=== PATIENT | female | born 1960 | race African-American/Black ===

== ENCOUNTER 2018-12-09 10:22 | Emergency (ER) | payer MEDICARE, MEDICAID ==
--- NOTE | 2018-12-09 12:18 | EDM.PDOC ---
ED HPI GENERAL MEDICAL PROBLEM - General Stated Complaint: ALLERGIC REACTION Time Seen by Provider: 12/09/18 11:15 Source of Information: Reports: Patient History Limitations: Reports: No Limitations - History of Present Illness INITIAL COMMENTS - FREE TEXT/NARRATIVE: c/o rash present this AM, on lower abd, itching, now fading chronic problem, pt with photos of 12/02 when she had flat papules across lower abd x 4-5 without red and c/w localized hives, tx with dexammethasone at least once now not on antihistamine rash had faded when I examined abd, will start baseline antihistamine - Related Data Allergies Allergy/AdvReac Type Severity Reaction Status Date / Time Iodinated Contrast- Oral and Allergy Hives Verified 12/09/18 12:09 IV Dye Penicillins Allergy Hives Verified 12/09/18 12:09 Home Meds: Home Meds Acetaminophen/Caffeine [Excedrin Tension Headache] 1 tab PO ASDIRECTED PRN 12/09 [History] Dextromethorphan HBr/Chlor-Mal [Cough & Cold] 1 ea PO ASDIRECTED PRN 12/09/18 [ History] Divalproex Sodium [Divalproex Sodium ER] 750 mg PO BID 12/09/18 [History] Doxepin [SINEquan] 10 - 30 mg PO Q6H PRN 12/09/18 [History] Lisinopril/Hydrochlorothiazide [Lisinopril-Hctz 20-25 mg Tab] 1 ea PO DAILY [History] Loratadine 10 mg PO DAILY #30 tablet 12/09/18 [Rx] Sertraline [Zoloft] 50 mg PO BEDTIME 12/09/18 [History] atorvaSTATin [Lipitor] 40 mg PO BEDTIME 12/09/18 [History] risperiDONE [Risperdal] 1 mg PO BID 12/09/18 [History] ED ROS GENERAL - Review of Systems Review Of Systems: See Below Constitutional: Reports: No Symptoms HEENT: Reports: No Symptoms Respiratory: Reports: No Symptoms Cardiovascular: Reports: No Symptoms Endocrine: Reports: No Symptoms GI/Abdominal: Reports: No Symptoms : Reports: No Symptoms Musculoskeletal: Reports: No Symptoms Skin: Reports: Pruritis, Rash Neurological: Reports: No Symptoms Psychiatric: Reports: No Symptoms Hematologic/Lymphatic: Reports: No Symptoms Immunologic: Reports: No Symptoms ED EXAM, SKIN/RASH Exam: See Below Exam Limited By: No Limitations General Appearance: Alert, WD/WN, No Apparent Distress Throat/Mouth: Normal Inspection, Normal Lips, Normal Teeth, Normal Gums, Normal Oropharynx, Normal Voice, No Airway Compromise Head: Atraumatic, Normocephalic Neck: Normal Inspection, Supple, Non-Tender, Full Range of Motion Respiratory/Chest: No Respiratory Distress, Lungs Clear Cardiovascular: Regular Rate, Rhythm Skin: Other (lower abd with dry skin, faint red color of skin in area of 4 x 4 cm above R inguinal ligament c/w dry skin vs mild allergic dermatitis, no hives , no warmth) Course - Vital Signs Last Recorded V/S: Last Vital Signs Temp 36.7 C 12/09/18 11:07 Pulse 71 12/09/18 10:47 Resp 16 12/09/18 11:07 BP 133/76 12/09/18 11:07 Pulse Ox 98 12/09/18 11:07 Departure - Departure Time of Disposition: 12:15 Disposition: Home, Self-Care 01 Condition: Good Clinical Impression: Allergic dermatitis - Discharge Information *PRESCRIPTION DRUG MONITORING PROGRAM REVIEWED*: Not Applicable *COPY OF PRESCRIPTION DRUG MONITORING REPORT IN PATIENT YANN: Not Applicable Prescriptions: Loratadine 10 mg PO DAILY #30 tablet Instructions: Rash, [id number] Referrals: PCP,None [Primary Care Provider] - Additional Instructions: For skin rash, take loratadine 10 mg 1 tab daily. Continue current prescribed medications. See your doctor in 4 days.
== END 2018-12-09 12:25 | disposition home or self-care (01) ==
LOC: FB.ED 10:22
DX: L23.9 Allergic contact dermatitis, unspecified cause (principal); Z88.0 Allergy status to penicillin; Z91.041 Radiographic dye allergy status; Z79.899 Other long term (current) drug therapy
CPT/HCPCS: 99283

== ENCOUNTER 2019-02-27 13:32 | Emergency (ER) | payer MEDICARE, MEDICAID ==
[2019-02-27] MEDS ORDERED: Sodium Chloride 0.9% 10 ML Syringe FLUSH PRN (13:37)
[2019-02-27] MEDS ORDERED: Ondansetron 8 MG Tab.DIS PO ONE (13:41)
--- NOTE | 2019-02-27 13:42 | EDM.PDOC ---
ED HPI GENERAL MEDICAL PROBLEM - General Stated Complaint: CHEST PAIN Time Seen by Provider: 02/27/19 13:32 Source of Information: Reports: Patient, EMS History Limitations: Reports: No Limitations - History of Present Illness INITIAL COMMENTS - FREE TEXT/NARRATIVE: 58 y.o.b. f with a h/o IVDA in the past, H/O HTN, noncompliance with meds for 1 year. Pt smokes daily, came to the ED by EMS due to pain in her mid chest, mid upper abdomen, Pt feels nauseated as well. pain started acutely this am, denied H/O CAD. No Trauma. Pt is a poor historian, no family is present. No other acute med issues. BP 197/97 RR 17 Pulse ox 99% on RA Temp 36.6 Pulse 61 Onset Date: 02/27/19 Onset Time: 08:00 Duration: Hour(s):, Intermittent Location: Reports: Chest Quality: Reports: Burning, Dull, Pressure Severity: Moderate Improves with: Reports: Medication, Rest Worsens with: Reports: Movement Context: Reports: Other (H/O HTN noncompliant with her meds) Associated Symptoms: Reports: Chest Pain, Other (nausea) right chest Pain Score (Numeric/FACES): 10 - Related Data Allergies Allergy/AdvReac Type Severity Reaction Status Date / Time Iodinated Contrast- Oral and Allergy Hives Verified 02/27/19 13:42 IV Dye Penicillins Allergy Hives Verified 02/27/19 13:42 Home Meds: Home Meds Dextromethorphan HBr/Chlor-Mal [Cough & Cold] 1 ea PO ASDIRECTED PRN 12/09/18 [ History] Divalproex Sodium [Divalproex Sodium ER] 750 mg PO BID 12/09/18 [History] Doxepin [SINEquan] 10 - 30 mg PO Q6H PRN 12/09/18 [History] Lisinopril/Hydrochlorothiazide [Lisinopril-Hctz 20-25 mg Tab] 1 ea PO DAILY [History] Loratadine 10 mg PO DAILY #30 tablet 12/09/18 [Rx] Sertraline [Zoloft] 50 mg PO BEDTIME 12/09/18 [History] atorvaSTATin [Lipitor] 40 mg PO BEDTIME 12/09/18 [History] risperiDONE [Risperdal] 4 mg PO BID 12/09/18 [History] ED ROS GENERAL - Review of Systems Review Of Systems: See Below Constitutional: Reports: No Symptoms HEENT: Reports: No Symptoms Respiratory: Reports: No Symptoms Cardiovascular: Reports: Chest Pain Endocrine: Reports: No Symptoms GI/Abdominal: Reports: Abdominal Pain (epigastric) : Reports: No Symptoms Musculoskeletal: Reports: No Symptoms Skin: Reports: No Symptoms Neurological: Reports: No Symptoms Psychiatric: Reports: No Symptoms Hematologic/Lymphatic: Reports: No Symptoms Immunologic: Reports: No Symptoms ED EXAM, GENERAL - Physical Exam Exam: See Below Exam Limited By: No Limitations General Appearance: Alert, WD/WN, Moderate Distress Eye Exam: Bilateral Eye: Normal Inspection Ears: Normal External Exam Ear Exam: Bilateral Ear: Auricle Normal Nose: Normal Inspection Throat/Mouth: Normal Inspection, Normal Lips, Normal Voice, No Airway Compromise Head: Atraumatic, Normocephalic Neck: Normal Inspection, Supple, Non-Tender, Full Range of Motion Respiratory/Chest: No Respiratory Distress, Lungs Clear, Normal Breath Sounds, No Accessory Muscle Use, Chest Non-Tender Cardiovascular: Normal Peripheral Pulses, Regular Rate, Rhythm, No Edema, No Gallop, No Murmur Peripheral Pulses: 1+: Brachial (L) GI/Abdominal: Normal Bowel Sounds, No Organomegaly, Tender (epigastric tenderness) (Female) Exam: Deferred Rectal (Female) Exam: Deferred Back Exam: Normal Inspection, Full Range of Motion Extremities: Normal Inspection, Normal Range of Motion, Non-Tender, No Pedal Edema Neurological: Alert, Oriented, CN II-XII Intact, Normal Cognition, Normal Gait Psychiatric: Normal Affect, Anxious Skin Exam: Warm, Dry, Intact, Normal Color Lymphatic: No Adenopathy EKG INTERPRETATION EKG Date: 02/27/19 Time: 13:35 Rate (Beats/Min): 70 [place]: Normal P-Wave: Present QRS: Normal ST-T: Depressed (ant-lateral leads) QT: Normal Comparison: NA - No Prior EKG Course - Vital Signs Text/Narrative:: 58 y.o.b. f with a h/o IVDA in the past, H/O HTN, noncompliance with meds for 1 year. Pt smokes daily, came to the ED by EMS due to pain in her mid chest, mid upper abdomen, Pt feels nauseated as well. pain started acutely this am, denied H/O CAD. No Trauma. Pt is a poor historian, no family is present. No other acute med issues. BP 197/97 RR 17 Pulse ox 99% on RA Temp 36.6 Pulse 61 PE: Morbid 58 y.o.b.f with epigastric and chest pain with T wave inversions ant/ lat leads, no old MEETA available Imaging: CXR: NAD Labs: CBC nl Troponin 0.017 INR/D Dimer nl. Glc 193 reminer of BMP were nl. Impression: Unstable angina, HTN Tx: GI cocktail, ASA, NTG paste, Labetalol, MS, Protonix, heparin drip without bolus Reexam: Pt's chest pain subsided after the meds were given. A repeat ECG was taken, which showed same T wave inversions. No acute ST elevations 1.59 pm Medical Record at [place]: No previous ECG 2.05 pm Medical Record at [facility]: No previous ECG 3.01 pm Consultation: Dr. Leal, Manager Ob, [facility]: Call the Hospitalist 3.10 pm Consultation: Dr. Lewis, Hospitalist, [facility]: [id number], no bolus , accepted the pt for transfer and further care. Plan: Transfer to [facility] Last Recorded V/S: Last Vital Signs Temp 36.6 C 02/27/19 14:05 Pulse 67 02/27/19 17:45 Resp 17 02/27/19 14:05 BP 148/101 H 02/27/19 17:45 Pulse Ox 99 02/27/19 14:05 - Orders/Labs/Meds Orders: Active Orders 24 hr Category Date Time Status EKG Documentation Completion [RC] ASDIRECTED Care 02/27/19 13:39 Active EKG Documentation Completion [RC] ASDIRECTED Care 02/27/19 14:40 Active Chest 1V Frontal [CR] Stat Exams 02/27/19 13:41 Taken Peripheral IV Insertion Adult [OM.PC] Routine Oth 02/27/19 13:37 Ordered EKG 12 Lead [EK] Routine Ther 02/27/19 13:38 Ordered EKG 12 Lead [EK] Routine Ther 02/27/19 14:39 Ordered Labs: Laboratory Tests 04/14/19 04/14/19 04/14/19 Range/Units 14:01 14:01 14:01 WBC 7.6 (4.5-12.0) X10-3/uL RBC 4.40 (3.23-5.20) x10(6)uL Hgb 13.4 (11.5-15.5) g/dL Hct 40.2 (30.0-51.3) % MCV 91.4 (80-96) fL MCH 30.3 (27.7-33.6) pg MCHC 33.2 (32.2-35.4) g/dL RDW 12.3 (11.5-15.5) % Plt Count 241 (125-369) X10(3)uL MPV 9.8 (7.4-10.4) fL Neut % (Auto) 51.2 (46-82) % Lymph % (Auto) 35.7 (13-37) % [place] % (Auto) 11.0 (4-12) % Eos % (Auto) 1 (1.0-5.0) % Baso % (Auto) 1 (0-2) % Neut # (Auto) 3.9 (1.6-8.3) # Lymph # (Auto) 2.7 (0.6-5.0) # [place] # (Auto) 0.8 (0.0-1.3) # Eos # (Auto) 0.1 (0.0-0.8) # Baso # (Auto) 0.1 (0.0-0.2) # PT 8.9 (8.7-11.1) INR 0.92 (0.89-1.13) D-Dimer, Quantitative 0.54 (0.0-0.59) mg/LFEU Sodium 141 (135-145) mmol/L Potassium 4.4 (3.5-5.3) mmol/L Chloride 104 (100-110) mmol/L Carbon Dioxide 28 (21-32) mmol/L BUN 13 (7-18) mg/dL Creatinine 0.8 (0.55-1.02) mg/dL Est Cr Clr Drug Dosing TNP Estimated GFR (MDRD) > 60 (>60) BUN/Creatinine Ratio 16.3 (9-20) Glucose 193 H (80-116) mg/dL Calcium 9.0 (8.6-10.2) mg/dL Magnesium (1.8-2.5) mg/dL Total Bilirubin 0.3 (0.1-1.3) mg/dL Direct Bilirubin 0.06 L (0.10-0.20) mg/dL AST 15 (5-25) IU/L ALT 34 (12-36) U/L Alkaline Phosphatase 106 (56-112) IU/L Troponin I (<0.017-0.056) ng/mL Total Protein 7.3 (6.0-8.0) g/dL Albumin 3.4 L (3.5-5.2) g/dL Amylase 70 (25-115) U/L Urine Color (YELLOW) Urine Appearance (CLEAR) Urine pH (5.0-6.5) Ur Specific [place] (1.010-1.025) Urine Protein (NEGATIVE) mg/dL Urine Glucose (UA) (NORMAL) mg/dL Urine Ketones (NEGATIVE) mg/dL Urine Occult Blood (NEGATIVE) Urine Nitrite (NEGATIVE) Urine Bilirubin (NEGATIVE) Urine Urobilinogen (NEGATIVE) mg/dL Ur Leukocyte Esterase (NEGATIVE) Urine RBC (0-5) Urine WBC (0-5) Ur Squamous Epith Cells (NS,R,O) Urine Bacteria (NS) Urine Mucus (NS) Urine Opiates Screen (NEGATIVE) Ur Oxycodone Screen (NEGATIVE) Ur Propoxyphene Screen (NEGATIVE) Ur Barbituates Screen (NEGATIVE) Ur Tricyclics Screen (NEGATIVE) Ur Phencyclidine Scrn (NEGATIVE) Ur Amphetamine Screen (NEGATIVE) Urine MDMA Screen (NEGATIVE) U Benzodiazepines Scrn (NEGATIVE) U Cocaine Metab Screen (NEGATIVE) U Marijuana (THC) Screen (NEGATIVE) 02/27/19 02/27/19 02/27/19 Range/Units 14:01 14:01 17:40 WBC (4.5-12.0) X10-3/uL RBC (3.23-5.20) x10(6)uL Hgb (11.5-15.5) g/dL Hct (30.0-51.3) % MCV (80-96) fL MCH (27.7-33.6) pg MCHC (32.2-35.4) g/dL RDW (11.5-15.5) % Plt Count (125-369) X10(3)uL MPV (7.4-10.4) fL Neut % (Auto) (46-82) % Lymph % (Auto) (13-37) % [place] % (Auto) (4-12) % Eos % (Auto) (1.0-5.0) % Baso % (Auto) (0-2) % Neut # (Auto) (1.6-8.3) # Lymph # (Auto) (0.6-5.0) # [place] # (Auto) (0.0-1.3) # Eos # (Auto) (0.0-0.8) # Baso # (Auto) (0.0-0.2) # PT (8.7-11.1) INR (0.89-1.13) D-Dimer, Quantitative (0.0-0.59) mg/LFEU Sodium (135-145) mmol/L Potassium (3.5-5.3) mmol/L Chloride (100-110) mmol/L Carbon Dioxide (21-32) mmol/L BUN (7-18) mg/dL Creatinine (0.55-1.02) mg/dL Est Cr Clr Drug Dosing Estimated GFR (MDRD) (>60) BUN/Creatinine Ratio (9-20) Glucose (80-116) mg/dL Calcium (8.6-10.2) mg/dL Magnesium 2.4 (1.8-2.5) mg/dL Total Bilirubin (0.1-1.3) mg/dL Direct Bilirubin (0.10-0.20) mg/dL AST (5-25) IU/L ALT (12-36) U/L Alkaline Phosphatase (56-112) IU/L Troponin I < 0.017 L (<0.017-0.056) ng/mL Total Protein (6.0-8.0) g/dL Albumin (3.5-5.2) g/dL Amylase (25-115) U/L Urine Color Yellow (YELLOW) Urine Appearance Clear (CLEAR) Urine pH 6.0 (5.0-6.5) Ur Specific [place] 1.020 (1.010-1.025) Urine Protein Negative (NEGATIVE) mg/dL Urine Glucose (UA) Normal (NORMAL) mg/dL Urine Ketones Negative (NEGATIVE) mg/dL Urine Occult Blood Negative (NEGATIVE) Urine Nitrite Negative (NEGATIVE) Urine Bilirubin Negative (NEGATIVE) Urine Urobilinogen Normal (NEGATIVE) mg/dL Ur Leukocyte Esterase Negative (NEGATIVE) Urine RBC 0-5 (0-5) Urine WBC 0-5 (0-5) Ur Squamous Epith Cells Moderate H (NS,R,O) Urine Bacteria Moderate H (NS) Urine Mucus Moderate H (NS) Urine Opiates Screen (NEGATIVE) Ur Oxycodone Screen (NEGATIVE) Ur Propoxyphene Screen (NEGATIVE) Ur Barbituates Screen (NEGATIVE) Ur Tricyclics Screen (NEGATIVE) Ur Phencyclidine Scrn (NEGATIVE) Ur Amphetamine Screen (NEGATIVE) Urine MDMA Screen (NEGATIVE) U Benzodiazepines Scrn (NEGATIVE) U Cocaine Metab Screen (NEGATIVE) U Marijuana (THC) Screen (NEGATIVE) 02/27/19 Range/Units 17:40 WBC (4.5-12.0) X10-3/uL RBC (3.23-5.20) x10(6)uL Hgb (11.5-15.5) g/dL Hct (30.0-51.3) % MCV (80-96) fL MCH (27.7-33.6) pg MCHC (32.2-35.4) g/dL RDW (11.5-15.5) % Plt Count (125-369) X10(3)uL MPV (7.4-10.4) fL Neut % (Auto) (46-82) % Lymph % (Auto) (13-37) % [place] % (Auto) (4-12) % Eos % (Auto) (1.0-5.0) % Baso % (Auto) (0-2) % Neut # (Auto) (1.6-8.3) # Lymph # (Auto) (0.6-5.0) # [place] # (Auto) (0.0-1.3) # Eos # (Auto) (0.0-0.8) # Baso # (Auto) (0.0-0.2) # PT (8.7-11.1) INR (0.89-1.13) D-Dimer, Quantitative (0.0-0.59) mg/LFEU Sodium (135-145) mmol/L Potassium (3.5-5.3) mmol/L Chloride (100-110) mmol/L Carbon Dioxide (21-32) mmol/L BUN (7-18) mg/dL Creatinine (0.55-1.02) mg/dL Est Cr Clr Drug Dosing Estimated GFR (MDRD) (>60) BUN/Creatinine Ratio (9-20) Glucose (80-116) mg/dL Calcium (8.6-10.2) mg/dL Magnesium (1.8-2.5) mg/dL Total Bilirubin (0.1-1.3) mg/dL Direct Bilirubin (0.10-0.20) mg/dL AST (5-25) IU/L ALT (12-36) U/L Alkaline Phosphatase (56-112) IU/L Troponin I (<0.017-0.056) ng/mL Total Protein (6.0-8.0) g/dL Albumin (3.5-5.2) g/dL Amylase (25-115) U/L Urine Color (YELLOW) Urine Appearance (CLEAR) Urine pH (5.0-6.5) Ur Specific [place] (1.010-1.025) Urine Protein (NEGATIVE) mg/dL Urine Glucose (UA) (NORMAL) mg/dL Urine Ketones (NEGATIVE) mg/dL Urine Occult Blood (NEGATIVE) Urine Nitrite (NEGATIVE) Urine Bilirubin (NEGATIVE) Urine Urobilinogen (NEGATIVE) mg/dL Ur Leukocyte Esterase (NEGATIVE) Urine RBC (0-5) Urine WBC (0-5) Ur Squamous Epith Cells (NS,R,O) Urine Bacteria (NS) Urine Mucus (NS) Urine Opiates Screen Positive H (NEGATIVE) Ur Oxycodone Screen Negative (NEGATIVE) Ur Propoxyphene Screen Negative (NEGATIVE) Ur Barbituates Screen Negative (NEGATIVE) Ur Tricyclics Screen Negative (NEGATIVE) Ur Phencyclidine Scrn Negative (NEGATIVE) Ur Amphetamine Screen Negative (NEGATIVE) Urine MDMA Screen Negative (NEGATIVE) U Benzodiazepines Scrn Negative (NEGATIVE) U Cocaine Metab Screen Negative (NEGATIVE) U Marijuana (THC) Screen Negative (NEGATIVE) Meds: Medications Discontinued Medications Generic Name Dose Route Start Last Admin Trade Name Freq PRN Reason Stop Dose Admin Aspirin 324 mg 02/27/19 13:44 02/27/19 13:44 Aspirin PO 02/27/19 13:45 324 mg ONETIME ONE Administration Al Hydroxide/Mg Hydroxide 15 0 ml 02/27/19 13:43 04/14/19 13:53 ml/ Lidocaine HCl 15 ml PO 02/27/19 13:44 15 ml ONETIME ONE Administration Heparin Sodium/Sodium Chloride 25,000 units in 500 mls @ 20 mls/hr 02/27/19 15 :15 Heparin 25,000 Units In 1/2 Ns 500 Ml IV TITRATE DINORAH Protocol Sodium Chloride 1,000 mls @ 125 mls/hr 02/27/19 15:10 02/27/19 15:10 Normal Saline IV 125 mls/hr ASDIRECTED DINORAH Administration Labetalol HCl 10 mg 02/27/19 14:56 02/27/19 15:14 Normodyne IVPUSH 02/27/19 14:57 10 mg ONETIME ONE Administration Protocol Labetalol HCl 10 mg 02/27/19 15:36 02/27/19 15:58 Normodyne IVPUSH 02/27/19 15:37 Not Given ONETIME STA Protocol Morphine Sulfate 2 mg 02/27/19 15:04 02/27/19 15:15 Morphine IVPUSH 02/27/19 15:05 2 mg ONETIME ONE Administration Morphine Sulfate 2 mg 02/27/19 15:57 02/27/19 17:54 Morphine IVPUSH 02/27/19 15:58 Not Given ONETIME ONE Nitroglycerin 1 gm 02/27/19 14:06 02/27/19 14:12 Nitro-Bid 2% TOP 02/27/19 14:07 1 gm ONETIME ONE Administration Ondansetron HCl 8 mg 02/27/19 13:41 02/27/19 13:53 Zofran Odt PO 02/27/19 13:42 8 mg ONETIME ONE Administration Pantoprazole Sodium 40 mg 02/27/19 14:56 02/27/19 15:15 Protonix Iv IVPUSH 02/27/19 14:57 40 mg ONETIME ONE Administration Sodium Chloride 10 ml 02/27/19 13:37 Saline Flush FLUSH ASDIRECTED PRN Keep Vein Open Departure - Departure Time of Disposition: 18:00 Disposition: DC/Tfer to [facility] 02 Reason for Transfer *Q: Other (No therapeutic specialist) Condition: Fair Clinical Impression: Unstable angina, T wave inversion in EKG Referrals: PCP,None [Primary Care Provider] - Forms: ED Department Discharge - My Orders Last 24 Hours: My Active Orders 02/27/19 13:37 Peripheral IV Insertion Adult [OM.PC] Routine 02/27/19 13:38 EKG 12 Lead [EK] Routine 02/27/19 13:39 EKG Documentation Completion [RC] ASDIRECTED 02/27/19 13:41 Chest 1V Frontal [CR] Stat 02/27/19 14:39 EKG 12 Lead [EK] Routine 02/27/19 14:40 EKG Documentation Completion [RC] ASDIRECTED - Assessment/Plan Last 24 Hours: My Active Orders 02/27/19 13:37 Peripheral IV Insertion Adult [OM.PC] Routine 02/27/19 13:38 EKG 12 Lead [EK] Routine 02/27/19 13:39 EKG Documentation Completion [RC] ASDIRECTED 02/27/19 13:41 Chest 1V Frontal [CR] Stat 02/27/19 14:39 EKG 12 Lead [EK] Routine 02/27/19 14:40 EKG Documentation Completion [RC] ASDIRECTED
[2019-02-27] MEDS ORDERED: Alum Hydroxide/Mag Hydroxide 15 ML, Lidocaine 2% 15 ML PO ONE ×2 (13:43)
[2019-02-27] MEDS ORDERED: Aspirin 81 MG Tab.Chew PO ONE (13:44)
[2019-02-27] MEDS ORDERED: Nitroglycerin 2% Oint 1 GM UD Packet TOP ONE (14:06)
[2019-02-27] MEDS ORDERED: Labetalol 20 MG/4 ML Syringe IVPUSH ONE (14:56)
[2019-02-27] MEDS ORDERED: Pantoprazole 40 MG Vial IVPUSH ONE (14:56)
[2019-02-27] MEDS ORDERED: Morphine 2 MG/ML Syringe IVPUSH ONE ×2 (15:04→15:57)
[2019-02-27] MEDS ORDERED: Sodium Chloride 0.9% 1,000 ML IV SCH (15:10)
[2019-02-27] MEDS ORDERED: Heparin Sodium/0.45% NaCl 25,000 UNITS/500 ML BAG IV SCH (15:15)
[2019-02-27] MEDS ORDERED: Labetalol 20 MG/4 ML Syringe IVPUSH STA (15:36)
== END 2019-02-27 17:45 ==
LOC: FB.ED 13:32
DX: I20.0 Unstable angina (principal); I10 Essential (primary) hypertension; Z91.041 Radiographic dye allergy status; Z88.0 Allergy status to penicillin; Z79.899 Other long term (current) drug therapy
CPT/HCPCS: 36415; 71045; 80048; 80076; 80305; 81001; 82150; 83735; 84484; 85025; 85379; 85610; 93005; 96361; 96365; 96366; 96375; 99285; A9270; C9113; J1644; J2270; J3490; J7030

== ENCOUNTER 2019-04-07 22:43 | Emergency (ER) | payer MEDICARE, MEDICAID ==
[2019-04-07] MEDS ORDERED: Ondansetron 8 MG Tab.DIS PO ONE (22:56)
[2019-04-07] MEDS ORDERED: Alum Hydroxide/Mag Hydroxide 15 ML, Lidocaine 2% 15 ML PO ONE ×2 (22:57)
--- NOTE | 2019-04-08 00:13 | EDM.PDOC ---
ED HPI GENERAL MEDICAL PROBLEM - General Chief Complaint: Chest Pain Stated Complaint: CHEST PAIN Time Seen by Provider: 04/07/19 22:45 Source of Information: Reports: Patient, EMS History Limitations: Reports: No Limitations - History of Present Illness INITIAL COMMENTS - FREE TEXT/NARRATIVE: 58 y.o. black F came to ED with mid upper abd. pain. Pt was seen admitted at [facility] for 4 days recently and had a complete cardiac W/U with was all neg. Pt is a smoker. No N/V/D no diaphoresis, no. Pain syed not radiate. No trauma. Pt describes pain as burning. No other acute med issues. BP 155/81 RR 18 Pulse ox 99% on RA Pulse 68 Temp 36.6 Onset Date: 04/07/19 Onset Time: 17:00 Duration: Hour(s):, Intermittent, Waxing/Waning Location: Reports: Chest, Abdomen Quality: Reports: Burning, Dull, Same as Previous Episode Severity: Moderate Improves with: Reports: Medication Worsens with: Reports: Other Context: Reports: Other Associated Symptoms: Reports: No Other Symptoms midchest Pain Score (Numeric/FACES): 7 - Related Data Allergies Allergy/AdvReac Type Severity Reaction Status Date / Time Iodinated Contrast- Oral and Allergy Hives Verified 04/07/19 22:55 IV Dye Penicillins Allergy Hives Verified 04/07/19 22:55 Home Meds: Home Meds Dextromethorphan HBr/Chlor-Mal [Cough & Cold] 1 ea PO ASDIRECTED PRN 12/09/18 [ History] Divalproex Sodium [Divalproex Sodium ER] 500 mg PO DAILY 12/09/18 [History] Doxepin [SINEquan] 10 - 30 mg PO Q6H PRN 12/09/18 [History] atorvaSTATin [Lipitor] 40 mg PO BEDTIME 12/09/18 [History] risperiDONE [Risperdal] 4 mg PO BID 12/09/18 [History] Aspirin [Halfprin] 81 mg PO DAILY 04/07/19 [History] Multivitamin [Multivitamins] 1 each PO DAILY 04/07/19 [History] Omeprazole 20 mg PO BID #40 tablet. 04/08/19 [Rx] Past Medical History Cardiovascular History: Reports: Hypertension Respiratory History: Reports: Other (See Below) Other Respiratory History: chronic smoker since she was 14 years old. 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 Uses marijuana once in a while last used is a month ago. Endocrine/Metabolic History: Reports: Diabetes, Type II - Past Surgical History Musculoskeletal Surgical History: Reports: Other (See Below) Other Musculoskeletal Surgeries/Procedures:: left ankle, right hand and wrist sx. Social & Family History - Family History Family Medical History: Noncontributory - Tobacco Use Smoking Status *Q: Current Every Day Smoker Years of Tobacco use: 44 Packs/Tins Daily: 0.2 - Caffeine Use Caffeine Use: Reports: Coffee Other Caffeine Use: iced coffee. - Recreational Drug Use Recreational Drug Use: Yes Recreational Drug Type: Reports: Cocaine ED ROS GENERAL - Review of Systems Review Of Systems: See Below Constitutional: Reports: No Symptoms HEENT: Reports: No Symptoms Respiratory: Reports: No Symptoms Cardiovascular: Reports: No Symptoms Endocrine: Reports: No Symptoms GI/Abdominal: Reports: Abdominal Pain (epigastric ) : Reports: No Symptoms Musculoskeletal: Reports: No Symptoms Skin: Reports: No Symptoms Neurological: Reports: No Symptoms Psychiatric: Reports: No Symptoms Hematologic/Lymphatic: Reports: No Symptoms Immunologic: Reports: No Symptoms ED EXAM, GENERAL - Physical Exam Exam: See Below Exam Limited By: No Limitations General Appearance: Alert, WD/WN, Mild Distress Eye Exam: Bilateral Eye: Normal Inspection Ears: Normal External Exam Ear Exam: Bilateral Ear: Auricle Normal Nose: Normal Inspection, Normal Mucosa, No Blood Throat/Mouth: Normal Inspection, Normal Lips, Normal Voice, No Airway Compromise Head: Atraumatic, Normocephalic Neck: Normal Inspection, Supple, Non-Tender, Full Range of Motion Respiratory/Chest: No Respiratory Distress, Lungs Clear, Normal Breath Sounds, No Accessory Muscle Use, Chest Non-Tender Cardiovascular: Normal Peripheral Pulses, Regular Rate, Rhythm, No Edema, No Gallop Peripheral Pulses: 2+: Brachial (L) GI/Abdominal: Normal Bowel Sounds, Tender (epigastric) (Female) Exam: Deferred Rectal (Female) Exam: Deferred Back Exam: Normal Inspection, Full Range of Motion Extremities: Normal Inspection, Normal Range of Motion, Non-Tender Neurological: Alert, Oriented, CN II-XII Intact, Normal Cognition, Normal Gait Psychiatric: Normal Affect, Normal Mood Skin Exam: Warm, Dry, Intact, Normal Color, No Rash Lymphatic: No Adenopathy EKG INTERPRETATION EKG Date: 04/07/19 Time: 23:15 Rhythm: NSR Rate (Beats/Min): 62 Thermal: Normal P-Wave: Present QRS: Normal ST-T: Other (t wave inversins V 6) QT: Normal Comparison: NA - No Prior EKG Course - Vital Signs Text/Narrative:: 58 y.o. black F came to ED with mid upper abd. pain. Pt was seen admitted at [facility] for 4 days recently and had a complete cardiac W/U with was all neg. Pt is a smoker. No N/V/D no diaphoresis, no. Pain syed not radiate. No trauma. Pt describes pain as burning. No other acute med issues. BP 155/81 RR 18 Pulse ox 99% on RA Pulse 68 Temp 36.6 PE: WNWD B F with epigastric pain Imaging: Not indicated Labs: CBC, BMP and troponin were neg, GLc 141 Impression: Atypical chest pain Tx: Zofran, GI cocktail Reexam: Pt's symptoms subsided Plan: D/C with instructions Last Recorded V/S: Last Vital Signs Temp 36.7 C 04/07/19 22:45 Pulse 63 04/08/19 00:15 Resp 17 04/08/19 00:15 BP 168/78 H 04/08/19 00:15 Pulse Ox 96 04/08/19 00:15 - Orders/Labs/Meds Orders: Active Orders 24 hr Category Date Time Status EKG Documentation Completion [RC] ASDIRECTED Care 04/07/19 22:57 Active EKG Documentation Completion [RC] ASDIRECTED Care 04/07/19 22:57 Inactive EKG 12 Lead [EK] Routine Ther 04/07/19 22:57 Ordered Labs: Laboratory Tests 04/07/19 04/07/19 04/07/19 Range/Units 23:10 23:10 23:10 WBC 8.5 (4.5-12.0) X10-3/uL RBC 3.92 (3.23-5.20) x10(6)uL Hgb 12.3 (11.5-15.5) g/dL Hct 36.1 (30.0-51.3) % MCV 92.2 (80-96) fL MCH 31.5 (27.7-33.6) pg MCHC 34.2 (32.2-35.4) g/dL RDW 12.4 (11.5-15.5) % Plt Count 242 (125-369) X10(3)uL MPV 9.8 (7.4-10.4) fL Neut % (Auto) 47.6 (46-82) % Lymph % (Auto) 46.1 H (13-37) % [place] % (Auto) 4.7 (4-12) % Eos % (Auto) 1 (1.0-5.0) % Baso % (Auto) 1 (0-2) % Neut # (Auto) 4.0 (1.6-8.3) # Lymph # (Auto) 3.9 (0.6-5.0) # [place] # (Auto) 0.4 (0.0-1.3) # Eos # (Auto) 0.1 (0.0-0.8) # Baso # (Auto) 0.1 (0.0-0.2) # PT 9.2 (8.7-11.1) INR 0.95 (0.89-1.13) Sodium 142 (135-145) mmol/L Potassium 4.0 (3.5-5.3) mmol/L Chloride 106 (100-110) mmol/L Carbon Dioxide 27 (21-32) mmol/L BUN 14 (7-18) mg/dL Creatinine 0.8 (0.55-1.02) mg/dL Est Cr Clr Drug Dosing TNP Estimated GFR (MDRD) > 60 (>60) BUN/Creatinine Ratio 17.5 (9-20) Glucose 141 H (80-116) mg/dL Calcium 9.4 (8.6-10.2) mg/dL Troponin I (<0.017-0.056) ng/mL 04/07/19 Range/Units 23:10 WBC (4.5-12.0) X10-3/uL RBC (3.23-5.20) x10(6)uL Hgb (11.5-15.5) g/dL Hct (30.0-51.3) % MCV (80-96) fL MCH (27.7-33.6) pg MCHC (32.2-35.4) g/dL RDW (11.5-15.5) % Plt Count (125-369) X10(3)uL MPV (7.4-10.4) fL Neut % (Auto) (46-82) % Lymph % (Auto) (13-37) % [place] % (Auto) (4-12) % Eos % (Auto) (1.0-5.0) % Baso % (Auto) (0-2) % Neut # (Auto) (1.6-8.3) # Lymph # (Auto) (0.6-5.0) # [place] # (Auto) (0.0-1.3) # Eos # (Auto) (0.0-0.8) # Baso # (Auto) (0.0-0.2) # PT (8.7-11.1) INR (0.89-1.13) Sodium (135-145) mmol/L Potassium (3.5-5.3) mmol/L Chloride (100-110) mmol/L Carbon Dioxide (21-32) mmol/L BUN (7-18) mg/dL Creatinine (0.55-1.02) mg/dL Est Cr Clr Drug Dosing Estimated GFR (MDRD) (>60) BUN/Creatinine Ratio (9-20) Glucose (80-116) mg/dL Calcium (8.6-10.2) mg/dL Troponin I < 0.017 L (<0.017-0.056) ng/mL Meds: Medications Discontinued Medications Generic Name Dose Route Start Last Admin Trade Name Freq PRN Reason Stop Dose Admin Al Hydroxide/Mg Hydroxide 15 0 ml 04/07/19 22:57 04/07/19 23:05 ml/ Lidocaine HCl 15 ml PO 04/07/19 22:58 30 ml ONETIME ONE Administration Ondansetron HCl 8 mg 04/07/19 22:56 04/07/19 23:05 Zofran Odt PO 04/07/19 22:57 8 mg ONETIME ONE Administration Departure - Departure Time of Disposition: 00:09 Disposition: Home, Self-Care 01 Condition: Good Clinical Impression: Atypical chest pain, Esophagitis with gastritis Prescriptions: Omeprazole 20 mg PO BID #40 tablet. Instructions: Nonspecific Chest Pain Referrals: PCP,None [Primary Care Provider] - Forms: ED Department Discharge, ED Return to Work/School Form Additional Instructions: Please avoid tobacco use, please take Omeprazole daily, please avoid spicy, please F/U. Please come back if your symptoms get worse acutely - My Orders Last 24 Hours: My Active Orders 04/07/19 22:57 EKG Documentation Completion [RC] ASDIRECTED EKG Documentation Completion [RC] ASDIRECTED EKG 12 Lead [EK] Routine - Assessment/Plan Last 24 Hours: My Active Orders 04/07/19 22:57 EKG Documentation Completion [RC] ASDIRECTED EKG Documentation Completion [RC] ASDIRECTED EKG 12 Lead [EK] Routine
== END 2019-04-08 00:38 | disposition home or self-care (01) ==
LOC: FB.ED 22:43
DX: K29.70 Gastritis, unspecified, without bleeding (principal); K20.9 Esophagitis, unspecified; E11.9 Type 2 diabetes mellitus without complications; K21.9 Gastro-esophageal reflux disease without esophagitis; F17.210 Nicotine dependence, cigarettes, uncomplicated; Z79.82 Long term (current) use of aspirin; Z79.899 Other long term (current) drug therapy; Z88.0 Allergy status to penicillin; Z91.041 Radiographic dye allergy status
CPT/HCPCS: 36415; 80048; 84484; 85025; 85610; 93005; 99285; A9270

== ENCOUNTER 2019-04-17 18:50 | Emergency (ER) | payer MEDICARE, MEDICAID ==
[2019-04-17] MEDS ORDERED: Naproxen 250 MG Tab PO ONE (18:51)
--- NOTE | 2019-04-17 19:19 | EDM.PDOC ---
ED HPI GENERAL MEDICAL PROBLEM - General Chief Complaint: Lower Extremity Injury/Pain Stated Complaint: RT KNEE PAIN Time Seen by Provider: 04/17/19 19:16 Source of Information: Reports: Patient, Family History Limitations: Reports: No Limitations - History of Present Illness INITIAL COMMENTS - FREE TEXT/NARRATIVE: Please tends a 58-year-old female complaining of right knee pain. Started today throbbing moderate to severe with instability. No trauma. She has not taken control of the pain. She has noted some swelling. She does have a history of chronic knee pain on that knee previously got corticosteroid injections but quit a few years ago. Location: Reports: Head - Related Data Allergies Allergy/AdvReac Type Severity Reaction Status Date / Time Iodinated Contrast- Oral and Allergy Hives Verified 04/07/19 22:55 IV Dye Penicillins Allergy Hives Verified 04/07/19 22:55 Home Meds: Home Meds Dextromethorphan HBr/Chlor-Mal [Cough & Cold] 1 ea PO ASDIRECTED PRN 12/09/18 [ History] Divalproex Sodium [Divalproex Sodium ER] 500 mg PO DAILY 12/09/18 [History] Doxepin [SINEquan] 10 - 30 mg PO Q6H PRN 12/09/18 [History] atorvaSTATin [Lipitor] 40 mg PO BEDTIME 12/09/18 [History] risperiDONE [Risperdal] 4 mg PO BID 12/09/18 [History] Aspirin [Halfprin] 81 mg PO DAILY 04/07/19 [History] Multivitamin [Multivitamins] 1 each PO DAILY 04/07/19 [History] Omeprazole 20 mg PO BID #40 tablet. 04/08/19 [Rx] Past Medical History Cardiovascular History: Reports: Hypertension Respiratory History: Reports: Other (See Below) Other Respiratory History: chronic smoker since she was 14 years old. 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 Uses marijuana once in a while last used is a month ago. Endocrine/Metabolic History: Reports: Diabetes, Type II - Past Surgical History Musculoskeletal Surgical History: Reports: Other (See Below) Other Musculoskeletal Surgeries/Procedures:: left ankle, right hand and wrist sx. Social & Family History - Family History Family Medical History: Noncontributory - Caffeine Use Caffeine Use: Reports: Coffee Other Caffeine Use: iced coffee. Review of Systems - Review of Systems Review Of Systems: ROS reveals no pertinent complaints other than HPI. ED EXAM, GENERAL - Physical Exam Exam: See Below Free Text/Narrative:: Mild effusion of right knee. Tender. Normal ROM. Negative ant drawer's test. Norm al dorsalis pedis pulses. Exam Limited By: No Limitations Departure - Departure Time of Disposition: 19:17 Disposition: Home, Self-Care 01 Condition: Good Clinical Impression: Knee pain - Discharge Information Referrals: Orly Lepe NP [Primary Care Provider] - - Problem List & Annotations (1) Knee pain SNOMED Code(s): 44294519 Code(s): M25.569 - PAIN IN UNSPECIFIED KNEE Status: Acute Current Visit: Yes Qualifiers: Chronicity: chronic Laterality: right Qualified Code(s): M25.561 - Pain in right knee; G89.29 - Other chronic pain - Problem List Review Problem List Initiated/Reviewed/Updated: Yes - Assessment/Plan Plan: Naproxen 500 mg po bid. Ice.Elevation.
== END 2019-04-17 19:45 | disposition home or self-care (01) ==
LOC: FB.ED 18:50
DX: M25.561 Pain in right knee (principal); Z79.899 Other long term (current) drug therapy; Z88.0 Allergy status to penicillin; Z91.041 Radiographic dye allergy status
CPT/HCPCS: 99283; A9270-GY

== ENCOUNTER 2019-05-15 21:58 | Emergency (ER) | payer MEDICARE, MEDICAID ==
[2019-05-15] MEDS ORDERED: Sodium Chloride 0.9% 500 ML IV SCH (22:30)
[2019-05-15] MEDS ORDERED: Sodium Chloride 0.9% 10 ML Syringe FLUSH PRN (22:32)
[2019-05-15] MEDS ORDERED: Prochlorperazine 10 MG in Sodium Chloride 0.9% 50 ML IV ONE (22:33)
[2019-05-15] MEDS ORDERED: LORazepam 2 MG/ML SDV IVPUSH ONE (22:33)
[2019-05-15] MEDS ORDERED: Sodium Chloride 0.9% 500 ML IV ONE (22:33)
[2019-05-15] MEDS ORDERED: diphenhydrAMINE 50 MG/ML SDV IVPUSH ONE (22:34)
--- NOTE | 2019-05-15 22:35 | EDM.PDOC ---
ED HPI GENERAL MEDICAL PROBLEM - General Chief Complaint: Headache Time Seen by Provider: 05/15/19 22:18 Source of Information: Reports: Patient History Limitations: Reports: No Limitations - History of Present Illness INITIAL COMMENTS - FREE TEXT/NARRATIVE: 58-year-old female with onset of left-sided headache and face pain rather suddenly at approximately 9:15 PM. She reports that she also had bilateral upper arm pain and neck pain associated with this. She took a sublingual nitroglycerin because she thought that was what she was supposed to do. She states this made her headache worse. She reports she was feeling well prior to this. She has had no fever. She's had no sore throat. She's had no cough or nasal congestion.She reports the pain was a sharp and shooting pain all over the left side of her face, head and to her neck. She reports that she had some photophobia. The pain initially was a 10/10. She now reports the pain is a 8/ 10.no vision problems. No trouble speaking. No arm or leg weakness. No nausea or vomiting. No problems thinking. The pain does seem to be getting better now. No trauma to her head. There are no other associated signs or symptoms. There are no other modifying factors. 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) - Related Data Allergies Allergy/AdvReac Type Severity Reaction Status Date / Time Iodinated Contrast- Oral and Allergy Hives Verified 05/15/19 23:22 IV Dye Penicillins Allergy Hives Verified 05/15/19 23:22 Home Meds: Home Meds Divalproex Sodium [Divalproex Sodium ER] 500 mg PO DAILY 12/09/18 [History] Doxepin [SINEquan] 10 - 30 mg PO Q6H PRN 12/09/18 [History] atorvaSTATin [Lipitor] 40 mg PO BEDTIME 12/09/18 [History] risperiDONE [Risperdal] 4 mg PO BEDTIME 12/09/18 [History] Aspirin [Halfprin] 81 mg PO DAILY 04/07/19 [History] Nitroglycerin 0.4 mg SL ASDIRECTED PRN 05/15/19 [History] metFORMIN HCl [Metformin HCl ER] 1,000 mg PO DAILY 05/15/19 [History] metFORMIN [Glucophage] 500 mg PO BEDTIME 05/15/19 [History] Past Medical History Cardiovascular History: Reports: Hypertension Respiratory History: Reports: Asthma Gastrointestinal History: Reports: GERD Psychiatric History: Reports: Addiction, Schizophrenia Other Psychiatric History: states that she used to use cocaine but has not been using for 8 years. Uses marijuana once in a while last used is a month ago. Endocrine/Metabolic History: Reports: Diabetes, Type II - Past Surgical History Musculoskeletal Surgical History: Reports: ORIF (right hand and left ankle), Other (See Below) Other Musculoskeletal Surgeries/Procedures:: left ankle, right hand and wrist sx. Social & Family History - Tobacco Use Smoking Status *Q: Current Every Day Smoker - Caffeine Use Caffeine Use: Reports: Coffee Other Caffeine Use: iced coffee. - Alcohol Use Alcohol Use History: No - Living Situation & Occupation Occupation: Unemployed ED ROS GENERAL - Review of Systems Review Of Systems: See Below Constitutional: Reports: No Symptoms HEENT: Reports: No Symptoms Respiratory: Reports: No Symptoms Cardiovascular: Reports: No Symptoms Endocrine: Reports: No Symptoms GI/Abdominal: Reports: No Symptoms : Reports: No Symptoms Musculoskeletal: Reports: No Symptoms, Neck Pain, Other (had bilateral upper arm pain but that has resolved.) Skin: Reports: No Symptoms Neurological: Reports: Headache Hematologic/Lymphatic: Reports: No Symptoms Immunologic: Reports: No Symptoms - Physical Exam Exam: See Below Exam Limited By: No Limitations General Appearance: Alert, WD/WN, Mild Distress (but she is awake, alert and appropriate and she is conversing normally.) Eye Exam: Bilateral Eye: EOMI, Normal Inspection Ears: Normal External Exam Nose: Normal Inspection, Normal Mucosa, No Blood Throat/Mouth: Normal Inspection, Normal Oropharynx, Normal Voice, No Airway Compromise Head Exam: Atraumatic, Normocephalic, Other (no tenderness over her preauricular areas) Neck: Normal Inspection, Supple, Non-Tender, Full Range of Motion Respiratory/Chest: No Respiratory Distress, Lungs Clear, Normal Breath Sounds, No Accessory Muscle Use, Chest Non-Tender Cardiovascular: Normal Peripheral Pulses, Regular Rate, Rhythm, No JVD GI/Abdominal: Normal Bowel Sounds, Soft, Non-Tender, No Mass Neuro Exam (Abbreviated): Alert, Oriented, CN II-XII Intact, Normal Cognition, No Motor/Sensory Deficits Back Exam: Normal Inspection Extremities: Normal Inspection, Normal Range of Motion, Non-Tender, No Pedal Edema, Normal Capillary Refill Psychiatric: Normal Affect Skin Exam: Warm, Dry, Intact, Normal Color, No Rash Course - Vital Signs Last Recorded V/S: Last Vital Signs Temp 36.5 C 05/15/19 22:00 Pulse 72 05/15/19 23:30 Resp 16 05/15/19 23:30 BP 138/63 05/15/19 23:30 Pulse Ox 99 05/15/19 23:30 - Orders/Labs/Meds Orders: Active Orders 24 hr Category Date Time Status Head wo Cont [CT] Stat Exams 05/15/19 22:32 Taken Sodium Chloride 0.9% [Normal Saline] 500 ml Med 05/15/19 22:30 Active IV ASDIRECTED Sodium Chloride 0.9% [Saline Flush] Med 05/15/19 22:32 Active 10 ml FLUSH ASDIRECTED PRN Peripheral IV Insertion Adult [OM.PC] Routine Oth 05/15/19 22:32 Ordered Medication Orders Sodium Chloride (Normal Saline) 500 mls @ 999 mls/hr IV ASDIRECTED DINORAH Last Admin: 05/15/19 23:00 Dose: 999 mls/hr Sodium Chloride (Saline Flush) 10 ml FLUSH ASDIRECTED PRN PRN Reason: Keep Vein Open Last Admin: 05/15/19 22:40 Dose: 10 ml Labs: Laboratory Tests 05/15/19 05/15/19 Range/Units 22:45 22:45 WBC 11.5 (4.5-12.0) X10-3/uL RBC 4.22 (3.23-5.20) x10(6)uL Hgb 12.8 (11.5-15.5) g/dL Hct 38.6 (30.0-51.3) % MCV 91.5 (80-96) fL MCH 30.4 (27.7-33.6) pg MCHC 33.2 (32.2-35.4) g/dL RDW 12.2 (11.5-15.5) % Plt Count 227 (125-369) X10(3)uL MPV 9.6 (7.4-10.4) fL Neut % (Auto) 59.6 (46-82) % Lymph % (Auto) 28.5 (13-37) % [place] % (Auto) 10.7 (4-12) % Eos % (Auto) 1 (1.0-5.0) % Baso % (Auto) 1 (0-2) % Neut # (Auto) 6.8 (1.6-8.3) # Lymph # (Auto) 3.3 (0.6-5.0) # [place] # (Auto) 1.2 (0.0-1.3) # Eos # (Auto) 0.1 (0.0-0.8) # Baso # (Auto) 0.1 (0.0-0.2) # ESR 31 H (0-20) mm/hr Sodium 144 (135-145) mmol/L Potassium 3.9 (3.5-5.3) mmol/L Chloride 105 (100-110) mmol/L Carbon Dioxide 26 (21-32) mmol/L BUN 18 (7-18) mg/dL Creatinine 0.9 (0.55-1.02) mg/dL Est Cr Clr Drug Dosing TNP Estimated GFR (MDRD) > 60 (>60) BUN/Creatinine Ratio 20.0 (9-20) Glucose 199 H (80-116) mg/dL Calcium 9.6 (8.6-10.2) mg/dL Total Bilirubin 0.2 (0.1-1.3) mg/dL AST 14 (5-25) IU/L ALT 30 D (12-36) U/L Alkaline Phosphatase 98 (56-112) IU/L Total Protein 7.8 (6.0-8.0) g/dL Albumin 3.8 (3.5-5.2) g/dL Globulin 4.0 g/dL Albumin/Globulin Ratio 1.0 Meds: Medications Generic Name Dose Route Start Last Admin Trade Name Freq PRN Reason Stop Dose Admin Sodium Chloride 500 mls @ 999 mls/hr 05/15/19 22:30 05/15/19 23:00 Normal Saline IV 999 mls/hr ASDIRECTED DINORAH Administration Sodium Chloride 10 ml 05/15/19 22:32 05/15/19 22:40 Saline Flush FLUSH 10 ml ASDIRECTED PRN Administration Keep Vein Open Discontinued Medications Generic Name Dose Route Start Last Admin Trade Name Qi PRN Reason Stop Dose Admin Diphenhydramine HCl 25 mg 05/15/19 22:34 05/15/19 23:02 Benadryl IVPUSH 05/15/19 22:35 25 mg ONETIME ONE Administration Prochlorperazine Edisylate 10 52 mls @ 150 mls/hr 05/15/19 22:33 05/15/19 23: 02 mg/ Sodium Chloride IV 05/15/19 22:53 150 mls/hr ONETIME ONE Administration Sodium Chloride 500 mls @ 999 mls/hr 05/15/19 22:33 05/15/19 23:16 Normal Saline IV 05/15/19 23:03 Not Given .BOLUS ONE Lorazepam 1 mg 05/15/19 22:33 05/15/19 23:04 Ativan IVPUSH 05/15/19 22:34 1 mg ONETIME ONE Administration - Radiology Interpretation Free Text/Narrative:: CT scan of head showed no evidence of infarction, intracranial hemorrhage or mass effect. She did have a small right sided mastoid effusion of unclear significance. This was per the [facility] radiologist, - Re-Assessments/Exams Free Text/Narrative Re-Assessment/Exam: 05/15/19 23:40: Patient's headache is gone. She feels much improved. Her blood tests are reassuring. The CT scan of her head showed no evidence of bleeding or stroke. Her blood sugar was somewhat elevated and her blood pressure was also somewhat elevated. She is sleepy after the medications but is easily awakened and appropriately responsive and neurologically stable. She will need to follow-up with her primary doctor this week and I have advised her to do this. Departure - Departure Time of Disposition: 23:55 Disposition: Home, Self-Care 01 Condition: Good Clinical Impression: Diabetes mellitus type 2 in obese Headache Qualifiers: Headache type: unspecified Headache chronicity pattern: acute headache Intractability: not intractable Qualified Code(s): R51 - Headache Hypertension Qualifiers: Hypertension type: unspecified Qualified Code(s): I10 - Essential (primary) hypertension - Discharge Information Instructions: Type 2 Diabetes Mellitus, Self Care, Adult, [id number], Hypertension, [id number], General Headache Without Cause, [id number] Referrals: Orly Lepe [facility] [Primary Care Provider] - Forms: ED Department Discharge Additional Instructions: Your blood tests were reassuring.Your blood sugar was 199 mg/dL. The CT scan of her head showed no evidence of bleeding or stroke. I am unsure of the cause of your headache, but it seems to be nothing of any serious nature. You do need to follow-up with her primary doctor this coming week recheck. Drink plenty of fluids. Rest. Back to the emergency department for worsening headache, unrelenting vomiting, localized area of weakness, fever or any other concerning sign or symptom. - My Orders Last 24 Hours: My Active Orders 05/15/19 22:30 Sodium Chloride 0.9% [Normal Saline] 500 ml IV ASDIRECTED 05/15/19 22:32 Head wo Cont [CT] Stat Sodium Chloride 0.9% [Saline Flush] 10 ml FLUSH ASDIRECTED PRN Peripheral IV Insertion Adult [OM.PC] Routine - Assessment/Plan Last 24 Hours: My Active Orders 05/15/19 22:30 Sodium Chloride 0.9% [Normal Saline] 500 ml IV ASDIRECTED 05/15/19 22:32 Head wo Cont [CT] Stat Sodium Chloride 0.9% [Saline Flush] 10 ml FLUSH ASDIRECTED PRN Peripheral IV Insertion Adult [OM.PC] Routine
== END 2019-05-16 00:30 | disposition home or self-care (01) ==
LOC: FB.ED 21:58
DX: I10 Essential (primary) hypertension (principal); E11.9 Type 2 diabetes mellitus without complications; R51 Headache; F17.200 Nicotine dependence, unspecified, uncomplicated; Z88.0 Allergy status to penicillin; Z91.041 Radiographic dye allergy status; Z79.82 Long term (current) use of aspirin; Z79.899 Other long term (current) drug therapy; Z79.84 Long term (current) use of oral hypoglycemic drugs
CPT/HCPCS: 36415; 70450; 80053; 85025; 85651; 96365; 96375; 99285; J0780; J1200; J2060; J7030; J7050

== ENCOUNTER 2019-08-08 15:56 | Emergency (ER) | payer MEDICARE, MEDICAID ==
[2019-08-08] MEDS ORDERED: Meclizine 25 MG Tab PO ONE (16:21)
--- NOTE | 2019-08-08 16:26 | EDM.PDOC ---
ED HPI GENERAL MEDICAL PROBLEM - General Stated Complaint: DIZZY; LIGHT HEADED Time Seen by Provider: 08/08/19 16:21 Source of Information: Reports: Patient History Limitations: Reports: No Limitations - History of Present Illness INITIAL COMMENTS - FREE TEXT/NARRATIVE: 59 y.o.b.f with a h/o NIDDM, came to the ed because of dizziness for a few days. Pt denied H/A or previous CVA. No Trauma. No N/V/D no CP or any other acute med issues. BP 109/59 RR 16 Pulse ox 97% on RA Pulse 71 Temp 36.8 Onset Date: 08/05/19 Onset Time: 10:00 Duration: Intermittent Location: Reports: Head Quality: Reports: Other Severity: Mild Improves with: Reports: Rest Worsens with: Reports: Movement Context: Reports: Other Associated Symptoms: Reports: No Other Symptoms - Related Data Allergies Allergy/AdvReac Type Severity Reaction Status Date / Time Iodinated Contrast Media Allergy Hives Verified 05/15/19 23:22 [Iodinated Contrast- Oral and IV Dye] Penicillins Allergy Hives Verified 05/15/19 23:22 Home Meds: Home Meds Divalproex Sodium [Divalproex Sodium ER] 500 mg PO DAILY 12/09/18 [History] Doxepin [SINEquan] 10 - 30 mg PO Q6H PRN 12/09/18 [History] atorvaSTATin [Lipitor] 40 mg PO BEDTIME 12/09/18 [History] risperiDONE [Risperdal] 4 mg PO BEDTIME 12/09/18 [History] Aspirin [Halfprin] 81 mg PO DAILY 04/07/19 [History] Nitroglycerin 0.4 mg SL ASDIRECTED PRN 05/15/19 [History] metFORMIN HCl [Metformin HCl ER] 1,000 mg PO DAILY 05/15/19 [History] metFORMIN [Glucophage] 500 mg PO BEDTIME 05/15/19 [History] Past Medical History Cardiovascular History: Reports: Hypertension Respiratory History: Reports: Asthma Other Respiratory History: chronic smoker since she was 14 years old. 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 Uses marijuana once in a while last used is a month ago. Endocrine/Metabolic History: Reports: Diabetes, Type II - Past Surgical History Musculoskeletal Surgical History: Reports: ORIF (right hand and left ankle), Other (See Below) Other Musculoskeletal Surgeries/Procedures:: left ankle, right hand and wrist sx. Social & Family History - Family History Family Medical History: Noncontributory - Caffeine Use Caffeine Use: Reports: Coffee Other Caffeine Use: iced coffee. - Living Situation & Occupation Occupation: Unemployed ED ROS ENT - Review of Systems Review Of Systems: See Below Constitutional: Reports: No Symptoms HEENT: Reports: No Symptoms Respiratory: Reports: No Symptoms Cardiovascular: Reports: No Symptoms Endocrine: Reports: No Symptoms GI/Abdominal: Reports: No Symptoms : Reports: No Symptoms Musculoskeletal: Reports: No Symptoms Skin: Reports: No Symptoms Neurological: Reports: Dizziness Psychiatric: Reports: No Symptoms Hematologic/Lymphatic: Reports: No Symptoms Immunologic: Reports: No Symptoms ED EXAM, ENT - Physical Exam Exam: See Below Exam Limited By: No Limitations General Appearance: Alert, WD/WN, Mild Distress Eye Exam: Bilateral Eye: Nystagmus Ears: Normal External Exam, Normal Canal, Hearing Grossly Normal Nose: Normal Inspection, Normal Mucousa, No Blood Mouth/Throat: Normal Gums, Normal Lips, Normal Oropharynx Head: Atraumatic, Normocephalic Neck: Normal Inspection, Supple, Non-Tender, Full Range of Motion Respiratory/Chest: No Respiratory Distress, Lungs Clear, Normal Breath Sounds, Chest Non-Tender Cardiovascular: Normal Peripheral Pulses, Regular Rate, Rhythm, No Edema, No Gallop GI/Abdominal: Normal Bowel Sounds, Soft, Non-Tender, No Organomegaly, No Abnormal Bruit, No Mass, Pelvis Stable (Female) Exam: Deferred Rectal (Female) Exam: Deferred Back: Normal Inspection, Full Range of Motion Extremities: Normal Inspection, Normal Range of Motion, Non-Tender Neurological: Alert, Oriented, CN II-XII Intact, Normal Cognition, Normal Gait Psychiatric: Normal Affect, Normal Mood Skin: Warm, Dry, Intact, Normal Color, No Rash Lymphatic: No Adenopathy EKG INTERPRETATION EKG Date: 08/08/19 Time: 18:30 Rhythm: NSR Rate (Beats/Min): 63 [place]: RAD-Right [place] Deviation P-Wave: Present QRS: Normal ST-T: Normal QT: Normal Comparison: NA - No Prior EKG (low voltage ECG) Course - Vital Signs Text/Narrative:: 59 y.o.b.f with a h/o NIDDM, came to the ed because of dizziness for a few days. Pt denied H/A or previous CVA. No Trauma. No N/V/D no CP or any other acute med issues. BP 109/59 RR 16 Pulse ox 97% on RA Pulse 71 Temp 36.8 PE: WNWD W F with Nystagmus Imaging: CT head: NAD Labs: CBC NL BMP: GFR 57 BUN 13 Cr. 1.3 H=Glc 236 Impression: vertigo. NIDDM with mild hyperglycemia Tx: Antivert Reexam: some improvement, pt was ambulating fine on D/C Plan: D/C with instructions Last Recorded V/S: Last Vital Signs Temp 36.4 C 08/08/19 18:45 Pulse 59 L 08/08/19 18:45 Resp 18 08/08/19 18:45 BP 133/85 08/08/19 18:45 Pulse Ox 100 08/08/19 18:45 - Orders/Labs/Meds Orders: Active Orders 24 hr Category Date Time Status EKG Documentation Completion [RC] ASDIRECTED Care 08/08/19 18:39 Active Head wo Cont [CT] Stat Exams 08/08/19 17:07 Taken EKG 12 Lead [EK] Routine Ther 08/08/19 18:38 Ordered Labs: Laboratory Tests 08/08/19 08/08/19 Range/Units 17:22 17:22 WBC 9.7 (4.5-12.0) X10-3/uL RBC 4.45 (3.23-5.20) x10(6)uL Hgb 13.6 (11.5-15.5) g/dL Hct 40.8 (30.0-51.3) % MCV 91.6 (80-96) fL MCH 30.6 (27.7-33.6) pg MCHC 33.4 (32.2-35.4) g/dL RDW 12.0 (11.5-15.5) % Plt Count 251 (125-369) X10(3)uL MPV 9.6 (7.4-10.4) fL Neut % (Auto) 66.0 (46-82) % Lymph % (Auto) 30.1 (13-37) % [place] % (Auto) 2.7 L (4-12) % Eos % (Auto) 1 (1.0-5.0) % Baso % (Auto) 0 (0-2) % Neut # (Auto) 6.3 (1.6-8.3) # Lymph # (Auto) 2.9 (0.6-5.0) # [place] # (Auto) 0.3 (0.0-1.3) # Eos # (Auto) 0.1 (0.0-0.8) # Baso # (Auto) 0.0 (0.0-0.2) # Sodium 141 (135-145) mmol/L Potassium 4.2 (3.5-5.3) mmol/L Chloride 103 (100-110) mmol/L Carbon Dioxide 27 (21-32) mmol/L BUN 13 (7-18) mg/dL Creatinine 1.3 H (0.55-1.02) mg/dL Est Cr Clr Drug Dosing 46.43 mL/min Estimated GFR (MDRD) 51 L (>60) BUN/Creatinine Ratio 10.0 (9-20) Glucose 215 H (80-116) mg/dL Calcium 9.2 (8.6-10.2) mg/dL Meds: Medications Discontinued Medications Generic Name Dose Route Start Last Admin Trade Name Qi PRN Reason Stop Dose Admin Meclizine HCl 50 mg 08/08/19 16:21 08/08/19 16:28 Antivert PO 08/08/19 16:22 50 mg ONETIME ONE Administration Departure - Departure Time of Disposition: 18:49 Disposition: Home, Self-Care 01 Condition: Good Clinical Impression: Vertigo, NIDDY (non-insulin dependent diabetes mellitus in young) - Discharge Information Instructions: Vertigo, [id number] Referrals: PCP,None [Primary Care Provider] - Forms: ED Department Discharge Additional Instructions: Please f/u with your PMD tomorrow as scheduled, please cont your meds. Consider MRI of head/brain to be scheduled. Come back if your symptoms get worse acutely - My Orders Last 24 Hours: My Active Orders 08/08/19 17:07 Head wo Cont [CT] Stat 08/08/19 18:38 EKG 12 Lead [EK] Routine 08/08/19 18:39 EKG Documentation Completion [RC] ASDIRECTED - Assessment/Plan Last 24 Hours: My Active Orders 08/08/19 17:07 Head wo Cont [CT] Stat 08/08/19 18:38 EKG 12 Lead [EK] Routine 08/08/19 18:39 EKG Documentation Completion [RC] ASDIRECTED
== END 2019-08-08 19:00 | disposition home or self-care (01) ==
LOC: FB.ED 15:56
DX: R42 Dizziness and giddiness (principal); E11.9 Type 2 diabetes mellitus without complications; I10 Essential (primary) hypertension; Z88.0 Allergy status to penicillin; Z91.041 Radiographic dye allergy status; Z79.82 Long term (current) use of aspirin; Z79.84 Long term (current) use of oral hypoglycemic drugs; Z79.899 Other long term (current) drug therapy
CPT/HCPCS: 36415; 70450; 80048; 85025; 93005; 93010; 99283; 99284; A9270; 82962

== ENCOUNTER 2019-08-09 14:13 | Emergency (ER) | payer MEDICAID, MEDICARE ==
--- NOTE | 2019-08-09 14:53 | EDM.PDOC ---
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 Pt reports she does not have a psychiatrist since being in [place] and is not taking the risperidone, states she took the doxepin and divalproex last night pt with urine drug screen positive for opiates 5m ago CBC neg yesterday, CMP with creat 1.3 and glu 212. No u/a from yesterday. no c/o pain, says she is tired - Related Data Allergies Allergy/AdvReac Type Severity Reaction Status Date / Time Iodinated Contrast Media Allergy Hives Verified 05/15/19 23:22 [Iodinated Contrast- Oral and IV Dye] Penicillins Allergy Hives Verified 05/15/19 23:22 Home Meds: Home Meds Divalproex Sodium [Divalproex Sodium ER] 500 mg PO DAILY 12/09/18 [History] Doxepin [SINEquan] 10 - 30 mg PO Q6H PRN 12/09/18 [History] atorvaSTATin [Lipitor] 40 mg PO BEDTIME 12/09/18 [History] risperiDONE [Risperdal] 4 mg PO BEDTIME 12/09/18 [History] Aspirin [Halfprin] 81 mg PO DAILY 04/07/19 [History] Nitroglycerin 0.4 mg SL ASDIRECTED PRN 05/15/19 [History] metFORMIN HCl [Metformin HCl ER] 1,000 mg PO DAILY 05/15/19 [History] metFORMIN [Glucophage] 500 mg PO BEDTIME 05/15/19 [History] Past Medical History Cardiovascular History: Reports: Hypertension Respiratory History: Reports: Asthma Other Respiratory History: chronic smoker since she was 14 years old. 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 Uses marijuana once in a while last used is a month ago. Endocrine/Metabolic History: Reports: Diabetes, Type II - Past Surgical History Musculoskeletal Surgical History: Reports: ORIF (right hand and left ankle), Other (See Below) Other Musculoskeletal Surgeries/Procedures:: left ankle, right hand and wrist sx. Social & Family History - Family History Family Medical History: Noncontributory - Caffeine Use Caffeine Use: Reports: Coffee Other Caffeine Use: iced coffee. - Living Situation & Occupation Occupation: Unemployed ED ROS GENERAL - Review of Systems Review Of Systems: See Below Constitutional: Reports: Malaise, Fatigue HEENT: Reports: No Symptoms Respiratory: Reports: No Symptoms Cardiovascular: Reports: No Symptoms Endocrine: Reports: No Symptoms GI/Abdominal: Reports: No Symptoms : Reports: No Symptoms Musculoskeletal: Reports: No Symptoms Skin: Reports: No Symptoms Neurological: Reports: Dizziness, Weakness Psychiatric: Reports: No Symptoms Hematologic/Lymphatic: Reports: No Symptoms Immunologic: Reports: No Symptoms ED EXAM, GENERAL - Physical Exam Exam: See Below Exam Limited By: Altered Mental Status General Appearance: Alert, WD/WN, Other (alert, answers questions, says she wants to sleep, says she is cold, requested the lights to be turned off, resting on her side) Eye Exam: Bilateral Eye: EOMI, PERRL Ears: Normal External Exam, Hearing Grossly Normal Nose: Normal Inspection, Normal Mucosa, No Blood Throat/Mouth: Normal Inspection, Normal Lips, Normal Oropharynx, No Airway Compromise Head: Atraumatic, Normocephalic Neck: Normal Inspection, Supple, Non-Tender. No: Lymphadenopathy (R), Lymphadenopathy (L) Respiratory/Chest: No Respiratory Distress, Lungs Clear, Normal Breath Sounds, No Accessory Muscle Use, Chest Non-Tender Cardiovascular: Regular Rate, Rhythm, No Edema, No Gallop, No JVD, No Murmur, No Rub GI/Abdominal: Normal Bowel Sounds, Soft, Non-Tender, No Organomegaly, No Distention Back Exam: Normal Inspection, Full Range of Motion Extremities: Normal Inspection, Non-Tender, No Pedal Edema Neurological: Alert, Oriented, CN II-XII Intact, No Motor/Sensory Deficits Psychiatric: Normal Affect, Normal Mood Skin Exam: Warm, Dry, Intact, Normal Color, No Rash Lymphatic: No Adenopathy Course - Orders/Labs/Meds Orders: Active Orders 24 hr Category Date Time Status VALPROIC ACID ([place])(R),S Stat Lab 08/09/19 14:48 Ordered Labs: Laboratory Tests 08/09/19 08/09/19 08/09/19 Range/Units 14:53 14:53 15:00 WBC (4.5-12.0) X10-3/uL RBC (3.23-5.20) x10(6)uL Hgb (11.5-15.5) g/dL Hct (30.0-51.3) % MCV (80-96) fL MCH (27.7-33.6) pg MCHC (32.2-35.4) g/dL RDW (11.5-15.5) % Plt Count (125-369) X10(3)uL MPV (7.4-10.4) fL Neut % (Auto) (46-82) % Lymph % (Auto) (13-37) % [place] % (Auto) (4-12) % Eos % (Auto) (1.0-5.0) % Baso % (Auto) (0-2) % Neut # (Auto) (1.6-8.3) # Lymph # (Auto) (0.6-5.0) # [place] # (Auto) (0.0-1.3) # Eos # (Auto) (0.0-0.8) # Baso # (Auto) (0.0-0.2) # Sodium 144 (135-145) mmol/L Potassium 4.4 (3.5-5.3) mmol/L Chloride 106 (100-110) mmol/L Carbon Dioxide 28 (21-32) mmol/L BUN 14 (7-18) mg/dL Creatinine 0.8 (0.55-1.02) mg/dL Est Cr Clr Drug Dosing TNP Estimated GFR (MDRD) > 60 (>60) BUN/Creatinine Ratio 17.5 (9-20) Glucose 171 H (80-116) mg/dL Lactic Acid (0.4-2.2) mmol/L Calcium 9.3 (8.6-10.2) mg/dL Troponin I (<0.017-0.056) ng/mL C-Reactive Protein (0.5-0.9) mg/dL Urine Color Yellow (YELLOW) Urine Appearance Clear (CLEAR) Urine pH 5.0 (5.0-6.5) Ur Specific [place] 1.020 (1.010-1.025) Urine Protein Negative (NEGATIVE) mg/dL Urine Glucose (UA) Normal (NORMAL) mg/dL Urine Ketones Negative (NEGATIVE) mg/dL Urine Occult Blood Negative (NEGATIVE) Urine Nitrite Negative (NEGATIVE) Urine Bilirubin Negative (NEGATIVE) Urine Urobilinogen Normal (NEGATIVE) mg/dL Ur Leukocyte Esterase Negative (NEGATIVE) Urine RBC 0-5 (0-5) Urine WBC 0-5 (0-5) Ur Squamous Epith Cells Few H (NS,R,O) Urine Bacteria Rare H (NS) Urine Opiates Screen Negative (NEGATIVE) Ur Oxycodone Screen Negative (NEGATIVE) Ur Propoxyphene Screen Negative (NEGATIVE) Ur Barbituates Screen Negative (NEGATIVE) Ur Tricyclics Screen Positive H (NEGATIVE) Ur Phencyclidine Scrn Negative (NEGATIVE) Ur Amphetamine Screen Negative (NEGATIVE) Urine MDMA Screen Negative (NEGATIVE) U Benzodiazepines Scrn Negative (NEGATIVE) U Cocaine Metab Screen Negative (NEGATIVE) U Marijuana (THC) Screen Negative (NEGATIVE) 08/09/19 08/09/19 08/09/19 Range/Units 15:00 15:00 15:00 WBC 8.1 (4.5-12.0) X10-3/uL RBC 4.41 (3.23-5.20) x10(6)uL Hgb 13.4 (11.5-15.5) g/dL Hct 40.9 (30.0-51.3) % MCV 92.7 (80-96) fL MCH 30.5 (27.7-33.6) pg MCHC 32.9 (32.2-35.4) g/dL RDW 12.4 (11.5-15.5) % Plt Count 240 (125-369) X10(3)uL MPV 9.7 (7.4-10.4) fL Neut % (Auto) 60.3 (46-82) % Lymph % (Auto) 34.2 (13-37) % [place] % (Auto) 3.8 L (4-12) % Eos % (Auto) 1 (1.0-5.0) % Baso % (Auto) 1 (0-2) % Neut # (Auto) 4.9 (1.6-8.3) # Lymph # (Auto) 2.8 (0.6-5.0) # [place] # (Auto) 0.3 (0.0-1.3) # Eos # (Auto) 0.1 (0.0-0.8) # Baso # (Auto) 0.0 (0.0-0.2) # Sodium (135-145) mmol/L Potassium (3.5-5.3) mmol/L Chloride (100-110) mmol/L Carbon Dioxide (21-32) mmol/L BUN (7-18) mg/dL Creatinine (0.55-1.02) mg/dL Est Cr Clr Drug Dosing Estimated GFR (MDRD) (>60) BUN/Creatinine Ratio (9-20) Glucose (80-116) mg/dL Lactic Acid 1.8 (0.4-2.2) mmol/L Calcium (8.6-10.2) mg/dL Troponin I < 0.017 L (<0.017-0.056) ng/mL C-Reactive Protein 2.3 H (0.5-0.9) mg/dL Urine Color (YELLOW) Urine Appearance (CLEAR) Urine pH (5.0-6.5) Ur Specific [place] (1.010-1.025) Urine Protein (NEGATIVE) mg/dL Urine Glucose (UA) (NORMAL) mg/dL Urine Ketones (NEGATIVE) mg/dL Urine Occult Blood (NEGATIVE) Urine Nitrite (NEGATIVE) Urine Bilirubin (NEGATIVE) Urine Urobilinogen (NEGATIVE) mg/dL Ur Leukocyte Esterase (NEGATIVE) Urine RBC (0-5) Urine WBC (0-5) Ur Squamous Epith Cells (NS,R,O) Urine Bacteria (NS) Urine Opiates Screen (NEGATIVE) Ur Oxycodone Screen (NEGATIVE) Ur Propoxyphene Screen (NEGATIVE) Ur Barbituates Screen (NEGATIVE) Ur Tricyclics Screen (NEGATIVE) Ur Phencyclidine Scrn (NEGATIVE) Ur Amphetamine Screen (NEGATIVE) Urine MDMA Screen (NEGATIVE) U Benzodiazepines Scrn (NEGATIVE) U Cocaine Metab Screen (NEGATIVE) U Marijuana (THC) Screen (NEGATIVE) - Re-Assessments/Exams Free Text/Narrative Re-Assessment/Exam: 08/09/19 17:07 d/w Dr Delatorre hospitalist at [facility] who accepted pt in admission, pt agrees pt not a safe discharge, no active psychosis, no active SI/HI doubt major depression altho still a consideration appears to have taken too much meds no recent alc, denies street drugs, no cigs/vaping/THC Departure - Departure Time of Disposition: 17:08 Disposition: DC/Tfer to Acute Hospital 02 Condition: Fair Clinical Impression: Lethargy - Discharge Information *PRESCRIPTION DRUG MONITORING PROGRAM REVIEWED*: Not Applicable *COPY OF PRESCRIPTION DRUG MONITORING REPORT IN PATIENT YANN: Not Applicable Forms: ED Department Discharge - My Orders Last 24 Hours: My Active Orders 08/09/19 14:48 VALPROIC ACID ([place])(R),S Stat - Assessment/Plan Last 24 Hours: My Active Orders 08/09/19 14:48 VALPROIC ACID ([place])(R),S Stat
== END 2019-08-09 18:25 ==
LOC: FB.ED 14:13
DX: R53.83 Other fatigue (principal); I10 Essential (primary) hypertension; E11.9 Type 2 diabetes mellitus without complications; F20.9 Schizophrenia, unspecified; Z91.041 Radiographic dye allergy status; Z88.0 Allergy status to penicillin; Z79.82 Long term (current) use of aspirin; Z79.84 Long term (current) use of oral hypoglycemic drugs; Z79.899 Other long term (current) drug therapy
CPT/HCPCS: 36415; 80048; 80164; 80305-QW; 81001; 83605; 84484; 85025; 86140; 99285

== ENCOUNTER 2019-08-14 18:25 | Emergency (ER) | payer MEDICARE ==
--- NOTE | 2019-08-14 19:00 | EDM.PDOC ---
ED HPI GENERAL MEDICAL PROBLEM - General Chief Complaint: Cardiovascular Problem Stated Complaint: DIZZY SPELL Time Seen by Provider: 08/14/19 18:25 Source of Information: Reports: Patient, Family History Limitations: Reports: No Limitations - History of Present Illness INITIAL COMMENTS - FREE TEXT/NARRATIVE: 59 y.o.b. f came to the ED due to dizziness off/on for several weeks. Pt was seen in the ED and by her PMD in the past for same. Pt ate [employer]. Her Accu check was 190. No N/V/D no Chest pain, no palpitations. Pt lives by herself. No SOB. last CT head showed pos lacunar infarct. No other acute medical issues. BP 135/ 82 RR 18 Pulse ox 98% on RA Pulse 75 BPM Temp 36.8 Onset Date: 08/04/19 Onset Time: 09:00 Duration: Day(s):, Week(s):, Intermittent Location: Reports: Generalized Quality: Reports: Same as Previous Episode Severity: Mild Improves with: Reports: Rest Worsens with: Reports: Movement Context: Reports: Other Associated Symptoms: Reports: No Other Symptoms Left Chest Pain Score (Numeric/FACES): 10 Abdomen Pain Score (Numeric/FACES): 5 - Related Data Allergies Allergy/AdvReac Type Severity Reaction Status Date / Time Iodinated Contrast Media Allergy Hives Verified 08/14/19 19:33 [Iodinated Contrast- Oral and IV Dye] Penicillins Allergy Hives Verified 08/14/19 19:33 Home Meds: Home Meds Divalproex Sodium [Divalproex Sodium ER] 500 mg PO DAILY 12/09/18 [History] Doxepin [SINEquan] 10 - 30 mg PO Q6H PRN 12/09/18 [History] atorvaSTATin [Lipitor] 40 mg PO BEDTIME 12/09/18 [History] risperiDONE [Risperdal] 4 mg PO BEDTIME 12/09/18 [History] Aspirin [Halfprin] 81 mg PO DAILY 04/07/19 [History] Nitroglycerin 0.4 mg SL ASDIRECTED PRN 05/15/19 [History] metFORMIN HCl [Metformin HCl ER] 1,000 mg PO DAILY 05/15/19 [History] metFORMIN [Glucophage] 500 mg PO BEDTIME 05/15/19 [History] Past Medical History Cardiovascular History: Reports: Hypertension Respiratory History: Reports: Asthma Other Respiratory History: chronic smoker since she was 14 years old. 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 Uses marijuana once in a while last used is a month ago. Endocrine/Metabolic History: Reports: Diabetes, Type II - Past Surgical History Musculoskeletal Surgical History: Reports: ORIF, Other (See Below) Other Musculoskeletal Surgeries/Procedures:: left ankle, right hand and wrist sx. Social & Family History - Family History Family Medical History: Noncontributory - Caffeine Use Caffeine Use: Reports: Soda Other Caffeine Use: iced coffee. - Living Situation & Occupation Occupation: Unemployed ED ROS GENERAL - Review of Systems Review Of Systems: See Below Constitutional: Reports: No Symptoms HEENT: Reports: No Symptoms Respiratory: Reports: No Symptoms Cardiovascular: Reports: No Symptoms Endocrine: Reports: No Symptoms GI/Abdominal: Reports: No Symptoms : Reports: No Symptoms Musculoskeletal: Reports: No Symptoms Skin: Reports: No Symptoms Neurological: Reports: Dizziness Psychiatric: Reports: No Symptoms Hematologic/Lymphatic: Reports: No Symptoms Immunologic: Reports: No Symptoms ED EXAM, GENERAL - Physical Exam Exam: See Below Exam Limited By: No Limitations General Appearance: Alert, WD/WN, Mild Distress, Obese Eye Exam: Bilateral Eye: Normal Inspection Ears: Normal External Exam Ear Exam: Bilateral Ear: Auricle Normal Nose: Normal Inspection, Normal Mucosa, No Blood Throat/Mouth: Normal Lips, Normal Voice, No Airway Compromise Head: Atraumatic, Normocephalic Neck: Normal Inspection, Supple, Non-Tender, Full Range of Motion Respiratory/Chest: No Respiratory Distress, Lungs Clear, Normal Breath Sounds, Chest Non-Tender Cardiovascular: Normal Peripheral Pulses, Regular Rate, Rhythm, No Edema, No Murmur, No Rub Peripheral Pulses: 2+: Brachial (R) GI/Abdominal: Normal Bowel Sounds, Soft, No Organomegaly, Tender (suprapubic) (Female) Exam: Deferred Rectal (Female) Exam: Deferred Back Exam: Normal Inspection, Full Range of Motion Extremities: Normal Inspection, Normal Range of Motion, Non-Tender Neurological: Alert, Oriented, CN II-XII Intact, Normal Cognition, Normal Gait Psychiatric: Normal Affect, Normal Mood Skin Exam: Warm, Dry, Intact, Normal Color, No Rash Lymphatic: No Adenopathy EKG INTERPRETATION EKG Date: 08/14/19 Time: 18:45 Rhythm: NSR Rate (Beats/Min): 75 [place]: Normal P-Wave: Present QRS: Normal ST-T: Depressed (not new) QT: Normal Comparison: No Change (No low voltage ECG) Course - Vital Signs Text/Narrative:: 59 y.o.b. f came to the ED due to dizziness off/on for several weeks. Pt was seen in the ED and by her PMD in the past for same. Pt ate [employer]. Her Accu check was 190. No N/V/D no Chest pain, no palpitations. Pt lives by herself. No SOB. last CT head showed pos lacunar infarct. No other acute medical issues. BP 135/ 82 RR 18 Pulse ox 98% on RA Pulse 75 BPM Temp 36.8 PE: WNWD B F, obese C/O unidentified Dizziness, no Nystagmus Labs: CBC nl BMP: HA1C 8.5 GLC 225 UA: Neg for UTI Impression: NIDDM, Dizzy spells, cause not identified Tx: None Reexam: Pt was ambulating fine, said she is ready to go home Plan: D/C with instructions Last Recorded V/S: Last Vital Signs Temp 36.4 C 08/14/19 18:40 Pulse 72 08/14/19 18:40 Resp 18 08/14/19 18:40 BP 135/82 08/14/19 18:40 Pulse Ox 100 08/14/19 18:40 - Orders/Labs/Meds Orders: Active Orders 24 hr Category Date Time Status Accu Check [Blood Glucose Check, Bedside] [RC] ONETIME Care 08/14/19 19:25 Active Labs: Laboratory Tests 08/14/19 08/14/19 08/14/19 Range/Units 18:57 19:32 19:32 WBC 8.9 (4.5-12.0) X10-3/uL RBC 4.27 (3.23-5.20) x10(6)uL Hgb 13.2 (11.5-15.5) g/dL Hct 39.0 (30.0-51.3) % MCV 91.3 (80-96) fL MCH 31.0 (27.7-33.6) pg MCHC 33.9 (32.2-35.4) g/dL RDW 12.1 (11.5-15.5) % Plt Count 244 (125-369) X10(3)uL MPV 9.5 (7.4-10.4) fL Neut % (Auto) 59.1 (46-82) % Lymph % (Auto) 35.7 (13-37) % [place] % (Auto) 3.6 L (4-12) % Eos % (Auto) 1 (1.0-5.0) % Baso % (Auto) 1 (0-2) % Neut # (Auto) 5.2 (1.6-8.3) # Lymph # (Auto) 3.2 (0.6-5.0) # [place] # (Auto) 0.3 (0.0-1.3) # Eos # (Auto) 0.1 (0.0-0.8) # Baso # (Auto) 0.1 (0.0-0.2) # Sodium 141 (135-145) mmol/L Potassium 3.9 (3.5-5.3) mmol/L Chloride 104 (100-110) mmol/L Carbon Dioxide 26 (21-32) mmol/L BUN 15 (7-18) mg/dL Creatinine 0.8 (0.55-1.02) mg/dL Est Cr Clr Drug Dosing 75.45 mL/min Estimated GFR (MDRD) > 60 (>60) BUN/Creatinine Ratio 18.8 (9-20) Glucose 223 H (80-116) mg/dL Hemoglobin A1c (4.5-6.2) % Calcium 9.4 (8.6-10.2) mg/dL Urine Color Yellow (YELLOW) Urine Appearance Clear (CLEAR) Urine pH 5.0 (5.0-6.5) Ur Specific [place] 1.020 (1.010-1.025) Urine Protein Negative (NEGATIVE) mg/dL Urine Glucose (UA) >1000 H (NORMAL) mg/dL Urine Ketones 15 H (NEGATIVE) mg/dL Urine Occult Blood Negative (NEGATIVE) Urine Nitrite Negative (NEGATIVE) Urine Bilirubin Negative (NEGATIVE) Urine Urobilinogen Normal (NEGATIVE) mg/dL Ur Leukocyte Esterase Negative (NEGATIVE) Urine RBC Not seen (0-5) Urine WBC 0-5 (0-5) Ur Squamous Epith Cells Moderate H (NS,R,O) Urine Bacteria Few H (NS) 08/14/19 Range/Units 19:32 WBC (4.5-12.0) X10-3/uL RBC (3.23-5.20) x10(6)uL Hgb (11.5-15.5) g/dL Hct (30.0-51.3) % MCV (80-96) fL MCH (27.7-33.6) pg MCHC (32.2-35.4) g/dL RDW (11.5-15.5) % Plt Count (125-369) X10(3)uL MPV (7.4-10.4) fL Neut % (Auto) (46-82) % Lymph % (Auto) (13-37) % [place] % (Auto) (4-12) % Eos % (Auto) (1.0-5.0) % Baso % (Auto) (0-2) % Neut # (Auto) (1.6-8.3) # Lymph # (Auto) (0.6-5.0) # [place] # (Auto) (0.0-1.3) # Eos # (Auto) (0.0-0.8) # Baso # (Auto) (0.0-0.2) # Sodium (135-145) mmol/L Potassium (3.5-5.3) mmol/L Chloride (100-110) mmol/L Carbon Dioxide (21-32) mmol/L BUN (7-18) mg/dL Creatinine (0.55-1.02) mg/dL Est Cr Clr Drug Dosing mL/min Estimated GFR (MDRD) (>60) BUN/Creatinine Ratio (9-20) Glucose (80-116) mg/dL Hemoglobin A1c 8.2 H (4.5-6.2) % Calcium (8.6-10.2) mg/dL Urine Color (YELLOW) Urine Appearance (CLEAR) Urine pH (5.0-6.5) Ur Specific [place] (1.010-1.025) Urine Protein (NEGATIVE) mg/dL Urine Glucose (UA) (NORMAL) mg/dL Urine Ketones (NEGATIVE) mg/dL Urine Occult Blood (NEGATIVE) Urine Nitrite (NEGATIVE) Urine Bilirubin (NEGATIVE) Urine Urobilinogen (NEGATIVE) mg/dL Ur Leukocyte Esterase (NEGATIVE) Urine RBC (0-5) Urine WBC (0-5) Ur Squamous Epith Cells (NS,R,O) Urine Bacteria (NS) Departure - Departure Time of Disposition: 19:54 Disposition: Home, Self-Care 01 Condition: Good Clinical Impression: Hyperglycemia due to type 2 diabetes mellitus, Dizzy spells Referrals: PCP,None [Primary Care Provider] - Forms: ED Department Discharge Additional Instructions: Please cont your meds, please f/u in am with your PMD, come back if your symptoms get worse acutely. - My Orders Last 24 Hours: My Active Orders 08/14/19 19:25 Accu Check [Blood Glucose Check, Bedside] [RC] ONETIME - Assessment/Plan Last 24 Hours: My Active Orders 08/14/19 19:25 Accu Check [Blood Glucose Check, Bedside] [RC] ONETIME
[2019-08-14 19:49] LABS: HEMOGLOBIN A1C 8.2 % (4.5-6.2)
== END 2019-08-14 20:00 | disposition home or self-care (01) ==
LOC: FB.ED 18:25
DX: E11.65 Type 2 diabetes mellitus with hyperglycemia (principal); R42 Dizziness and giddiness; I10 Essential (primary) hypertension; J45.909 Unspecified asthma, uncomplicated; F17.200 Nicotine dependence, unspecified, uncomplicated; Z88.0 Allergy status to penicillin; Z91.041 Radiographic dye allergy status; Z79.84 Long term (current) use of oral hypoglycemic drugs
CPT/HCPCS: 36415; 80048; 81001; 82962; 83036; 85025; 99284

== ENCOUNTER 2019-10-12 18:21 | Emergency (ER) | payer MEDICARE, MEDICAID ==
[2019-10-12] MEDS ORDERED: Ibuprofen 600 MG Tab PO ONE (19:15)
--- NOTE | 2019-10-12 19:27 | EDM.PDOC ---
ED HPI GENERAL MEDICAL PROBLEM - General Chief Complaint: Upper Extremity Injury/Pain Time Seen by Provider: 10/12/19 19:00 Source of Information: Reports: Patient, EMS History Limitations: Reports: No Limitations - History of Present Illness INITIAL COMMENTS - FREE TEXT/NARRATIVE: pt comes from home by EMS with c/o left elbow pain, tells me it started about 6 hrs ago, describe it as sheap and sever, worse with movement or touching her elbow, denies any injuries or any other associated sx or concerns. denies any cest pain or resp sx, has not taken anything for this pain. pt denies Hx of similar pain in past. - Related Data Allergies Allergy/AdvReac Type Severity Reaction Status Date / Time Iodinated Contrast Media Allergy Hives Verified 08/14/19 19:33 [Iodinated Contrast- Oral and IV Dye] Penicillins Allergy Hives Verified 08/14/19 19:33 Home Meds: Home Meds Divalproex Sodium [Divalproex Sodium ER] 500 mg PO DAILY 12/09/18 [History] Doxepin [SINEquan] 10 - 30 mg PO Q6H PRN 12/09/18 [History] atorvaSTATin [Lipitor] 40 mg PO BEDTIME 12/09/18 [History] risperiDONE [Risperdal] 4 mg PO BEDTIME 12/09/18 [History] Aspirin [Halfprin] 81 mg PO DAILY 04/07/19 [History] Nitroglycerin 0.4 mg SL ASDIRECTED PRN 05/15/19 [History] metFORMIN HCl [Metformin HCl ER] 1,000 mg PO DAILY 05/15/19 [History] metFORMIN [Glucophage] 500 mg PO BEDTIME 05/15/19 [History] Past Medical History Cardiovascular History: Reports: Hypertension Respiratory History: Reports: Asthma Other Respiratory History: chronic smoker since she was 14 years old. 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 Uses marijuana once in a while last used is a month ago. Endocrine/Metabolic History: Reports: Diabetes, Type II - Past Surgical History Musculoskeletal Surgical History: Reports: ORIF, Other (See Below) Other Musculoskeletal Surgeries/Procedures:: left ankle, right hand and wrist sx. Social & Family History - Family History Family Medical History: Noncontributory - Caffeine Use Caffeine Use: Reports: Soda Other Caffeine Use: iced coffee. - Living Situation & Occupation Occupation: Unemployed Review of Systems - Review of Systems Review Of Systems: See Below Constitutional: Reports: No Symptoms Mouth/Throat: Reports: No Symptoms Respiratory: Reports: No Symptoms Cardiovascular: Reports: No Symptoms ED EXAM, GENERAL - Physical Exam Exam: See Below Exam Limited By: No Limitations General Appearance: Alert, No Apparent Distress Nose: Normal Inspection Throat/Mouth: Normal Inspection Respiratory/Chest: No Respiratory Distress, Lungs Clear Cardiovascular: Normal Peripheral Pulses, Regular Rate, Rhythm, No Edema GI/Abdominal: Normal Bowel Sounds, Soft, Non-Tender Extremities: Normal Inspection, Other (tender when just touching her left elbow , ROM is full, no deformities or swelling noted, skin is nl, and LUE is NVI. ) Course - Vital Signs Text/Narrative:: EKG shows NSR, Xray of left elbow show no acute findings. pt has Hx of abusing this ER with various pain complaints, her elbow pain appear related to tendinitis if anything. pt was given Motrin ad was recommended antiinflammatories and supportive mng for her left elbow pain, she is to follow with PCP in 1 week if this continue to be an issue. - Orders/Labs/Meds Orders: Active Orders 24 hr Category Date Time Status Elbow 2V Lt [CR] Stat Exams 10/12/19 18:42 Ordered Meds: Medications Discontinued Medications Generic Name Dose Route Start Last Admin Trade Name Didierq PRN Reason Stop Dose Admin Ibuprofen 600 mg 10/12/19 19:15 Motrin PO 10/12/19 19:16 ONETIME ONE Departure - Departure Time of Disposition: 19:29 Disposition: Home, Self-Care 01 Clinical Impression: Elbow pain, left - Discharge Information Referrals: PCP,None [Primary Care Provider] - Forms: ED Department Discharge - My Orders Last 24 Hours: My Active Orders 10/12/19 18:42 Elbow 2V Lt [CR] Stat - Assessment/Plan Last 24 Hours: My Active Orders 10/12/19 18:42 Elbow 2V Lt [CR] Stat
--- NOTE | 2019-10-14 10:53 | CR ---
INDICATION: Elbow pain. LEFT ELBOW: Frontal and lateral views of the left elbow revealed minimal hypertrophic degenerative changes at the medial elbow joint compartment. A small apparently degenerative spur off the medial aspect of the proximal ulna is fragmented, which could be on the basis of a previous chip fracture fragment that did not unite. It appears corticated. A definite fracture or dislocation was not identified. No definite joint effusion is seen. 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 MTDD
== END 2019-10-12 19:43 | disposition home or self-care (01) ==
LOC: FB.ED 18:21
DX: M25.522 Pain in left elbow (principal); I10 Essential (primary) hypertension; J45.909 Unspecified asthma, uncomplicated; E11.9 Type 2 diabetes mellitus without complications; F17.200 Nicotine dependence, unspecified, uncomplicated; Z91.041 Radiographic dye allergy status; Z88.0 Allergy status to penicillin; Z79.82 Long term (current) use of aspirin; Z79.84 Long term (current) use of oral hypoglycemic drugs
CPT/HCPCS: 73070-LT; 93005; 99284-25; A9270-GY

== ENCOUNTER 2019-10-20 21:42 | Emergency (ER) | payer MEDICARE, MEDICAID ==
[2019-10-20] MEDS ORDERED: Acetaminophen/oxyCODONE 325-5 MG Tab PO ONE (22:18)
[2019-10-20] MEDS ORDERED: hydrALAZINE 20 MG/ML SDV IM ONE (23:06)
--- NOTE | 2019-10-20 23:14 | EDM.PDOC ---
ED HPI GENERAL MEDICAL PROBLEM - General Chief Complaint: Abdominal Pain Stated Complaint: ABDOMINAL PAIN Time Seen by Provider: 10/20/19 22:00 Source of Information: Reports: Patient History Limitations: Reports: No Limitations - History of Present Illness INITIAL COMMENTS - FREE TEXT/NARRATIVE: Patient presented to the ED because of RUQ pain which started this morning. The pain is sharp,4/1o,denies any N/V. there is no fever or chills or changes in bowel movements or urinary symptoms. Treatments [employer]: Reports: Other (see below) Other Treatments [employer]: Aleve Right upper abdominal Pain Score (Numeric/FACES): 9 - Related Data Allergies Allergy/AdvReac Type Severity Reaction Status Date / Time Iodinated Contrast Media Allergy Hives Verified 10/20/19 22:00 [Iodinated Contrast- Oral and IV Dye] Penicillins Allergy Hives Verified 10/20/19 22:00 Home Meds: Home Meds Divalproex Sodium [Divalproex Sodium ER] 500 mg PO DAILY 12/09/18 [History] Doxepin [SINEquan] 10 - 30 mg PO Q6H PRN 12/09/18 [History] atorvaSTATin [Lipitor] 40 mg PO BEDTIME 12/09/18 [History] risperiDONE [Risperdal] 4 mg PO BEDTIME 12/09/18 [History] Aspirin [Halfprin] 81 mg PO DAILY 04/07/19 [History] Nitroglycerin 0.4 mg SL ASDIRECTED PRN 05/15/19 [History] metFORMIN HCl [Metformin HCl ER] 1,000 mg PO DAILY 05/15/19 [History] metFORMIN [Glucophage] 500 mg PO BEDTIME 05/15/19 [History] Past Medical History Cardiovascular History: Reports: Hypertension Respiratory History: Reports: Asthma Other Respiratory History: chronic smoker since she was 14 years old. 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 Uses marijuana once in a while Endocrine/Metabolic History: Reports: Diabetes, Type II - Past Surgical History Musculoskeletal Surgical History: Reports: ORIF, Other (See Below) Other Musculoskeletal Surgeries/Procedures:: left ankle, right hand and wrist sx. Social & Family History - Family History Family Medical History: Noncontributory - Tobacco Use Smoking Status *Q: Former Smoker Used Tobacco, but Quit: Yes Month/Year Tobacco Last Used: 2018 - Caffeine Use Caffeine Use: Reports: None Other Caffeine Use: iced coffee. - Recreational Drug Use Recreational Drug Use: No - Living Situation & Occupation Occupation: Unemployed ED ROS GENERAL - Review of Systems Review Of Systems: See Below Constitutional: Reports: No Symptoms HEENT: Reports: No Symptoms Respiratory: Reports: No Symptoms Cardiovascular: Reports: No Symptoms Endocrine: Reports: No Symptoms GI/Abdominal: Reports: Abdominal Pain. Denies: Nausea, Vomiting : Reports: No Symptoms Musculoskeletal: Reports: No Symptoms ED EXAM, GI/ABD - Physical Exam Exam: See Below Exam Limited By: No Limitations General Appearance: Alert, WD/WN, No Apparent Distress Ears: Normal External Exam, Normal [place], Hearing Grossly Normal Nose: Normal Inspection, Normal Mucosa, No Blood Throat/Mouth: Normal Inspection, Normal Lips, Normal Teeth, Normal Gums Head: Atraumatic, Normocephalic Neck: Normal Inspection, Supple, Non-Tender, Full Range of Motion Respiratory/Chest: No Respiratory Distress, Lungs Clear, Normal Breath Sounds, No Accessory Muscle Use, Chest Non-Tender Cardiovascular: Normal Peripheral Pulses, Regular Rate, Rhythm, No Edema, No Gallop GI/Abdominal Exam: Normal Bowel Sounds, Soft, Other (RUQ tenderness) Back Exam: Normal Inspection, Full Range of Motion Extremities: Normal Inspection, Normal Range of Motion, Non-Tender, No Pedal Edema, Normal Capillary Refill Course - Vital Signs Text/Narrative:: abdominal ultrasound scheduled for tomorrow morning patient advised to be NPO by 6 am Percocet 5/325,2po x1 Last Recorded V/S: Last Vital Signs Temp 36.7 C 10/20/19 22:50 Pulse 75 10/20/19 23:29 Resp 18 10/20/19 23:29 BP 156/92 H 10/20/19 23:29 Pulse Ox 100 10/20/19 23:29 - Orders/Labs/Meds Labs: Laboratory Tests 10/20/19 10/20/19 10/20/19 Range/Units 22:24 22:27 22:27 WBC (4.5-12.0) X10-3/uL RBC (3.23-5.20) x10(6)uL Hgb (11.5-15.5) g/dL Hct (30.0-51.3) % MCV (80-96) fL MCH (27.7-33.6) pg MCHC (32.2-35.4) g/dL RDW (11.5-15.5) % Plt Count (125-369) X10(3)uL MPV (7.4-10.4) fL Neut % (Auto) (46-82) % Lymph % (Auto) (13-37) % [place] % (Auto) (4-12) % Eos % (Auto) (1.0-5.0) % Baso % (Auto) (0-2) % Neut # (Auto) (1.6-8.3) # Lymph # (Auto) (0.6-5.0) # [place] # (Auto) (0.0-1.3) # Eos # (Auto) (0.0-0.8) # Baso # (Auto) (0.0-0.2) # Sodium 137 (135-145) mmol/L Potassium 4.3 (3.5-5.3) mmol/L Chloride 104 (100-110) mmol/L Carbon Dioxide 27 (21-32) mmol/L BUN 12 (7-18) mg/dL Creatinine 0.8 (0.55-1.02) mg/dL Est Cr Clr Drug Dosing 75.45 mL/min Estimated GFR (MDRD) > 60 (>60) BUN/Creatinine Ratio 15.0 (9-20) Glucose 309 H D (80-116) mg/dL Calcium 9.4 (8.6-10.2) mg/dL Total Bilirubin 0.2 (0.1-1.3) mg/dL AST 14 (5-25) IU/L ALT 28 (12-36) U/L Alkaline Phosphatase 130 H (56-112) IU/L Total Protein 8.1 H (6.0-8.0) g/dL Albumin 3.7 (3.5-5.2) g/dL Globulin 4.4 g/dL Albumin/Globulin Ratio 0.8 Amylase 54 (25-115) U/L Lipase 179 (73-393) U/L Urine Color Yellow (YELLOW) Urine Appearance Clear (CLEAR) Urine pH 6.0 (5.0-6.5) Ur Specific [place] 1.010 (1.010-1.025) Urine Protein Negative (NEGATIVE) mg/dL Urine Glucose (UA) >1000 H (NORMAL) mg/dL Urine Ketones Negative (NEGATIVE) mg/dL Urine Occult Blood Negative (NEGATIVE) Urine Nitrite Negative (NEGATIVE) Urine Bilirubin Negative (NEGATIVE) Urine Urobilinogen Normal (NEGATIVE) mg/dL Ur Leukocyte Esterase Negative (NEGATIVE) Urine RBC Not seen (0-5) Urine WBC 0-5 (0-5) Ur Squamous Epith Cells Rare (NS,R,O) Urine Bacteria Rare H (NS) 10/20/19 Range/Units 22:27 WBC 8.3 (4.5-12.0) X10-3/uL RBC 4.40 (3.23-5.20) x10(6)uL Hgb 13.2 (11.5-15.5) g/dL Hct 40.7 (30.0-51.3) % MCV 92.5 (80-96) fL MCH 29.9 (27.7-33.6) pg MCHC 32.3 (32.2-35.4) g/dL RDW 12.4 (11.5-15.5) % Plt Count 228 (125-369) X10(3)uL MPV 10.1 (7.4-10.4) fL Neut % (Auto) 58.6 (46-82) % Lymph % (Auto) 35.0 (13-37) % [place] % (Auto) 4.0 (4-12) % Eos % (Auto) 1 (1.0-5.0) % Baso % (Auto) 1 (0-2) % Neut # (Auto) 4.9 (1.6-8.3) # Lymph # (Auto) 2.9 (0.6-5.0) # [place] # (Auto) 0.3 (0.0-1.3) # Eos # (Auto) 0.1 (0.0-0.8) # Baso # (Auto) 0.1 (0.0-0.2) # Sodium (135-145) mmol/L Potassium (3.5-5.3) mmol/L Chloride (100-110) mmol/L Carbon Dioxide (21-32) mmol/L BUN (7-18) mg/dL Creatinine (0.55-1.02) mg/dL Est Cr Clr Drug Dosing mL/min Estimated GFR (MDRD) (>60) BUN/Creatinine Ratio (9-20) Glucose (80-116) mg/dL Calcium (8.6-10.2) mg/dL Total Bilirubin (0.1-1.3) mg/dL AST (5-25) IU/L ALT (12-36) U/L Alkaline Phosphatase (56-112) IU/L Total Protein (6.0-8.0) g/dL Albumin (3.5-5.2) g/dL Globulin g/dL Albumin/Globulin Ratio Amylase (25-115) U/L Lipase (73-393) U/L Urine Color (YELLOW) Urine Appearance (CLEAR) Urine pH (5.0-6.5) Ur Specific [place] (1.010-1.025) Urine Protein (NEGATIVE) mg/dL Urine Glucose (UA) (NORMAL) mg/dL Urine Ketones (NEGATIVE) mg/dL Urine Occult Blood (NEGATIVE) Urine Nitrite (NEGATIVE) Urine Bilirubin (NEGATIVE) Urine Urobilinogen (NEGATIVE) mg/dL Ur Leukocyte Esterase (NEGATIVE) Urine RBC (0-5) Urine WBC (0-5) Ur Squamous Epith Cells (NS,R,O) Urine Bacteria (NS) Meds: Medications Discontinued Medications Generic Name Dose Route Start Last Admin Trade Name Didierq PRN Reason Stop Dose Admin Hydralazine HCl 20 mg 10/20/19 23:06 10/20/19 23:14 Apresoline IM 10/20/19 23:07 20 mg ONETIME ONE Administration Oxycodone/Acetaminophen 2 tab 10/20/19 22:18 10/20/19 22:24 Percocet 325-5 Mg PO 10/20/19 22:19 2 tab ONETIME ONE Administration Departure - Departure Time of Disposition: 23:10 Disposition: Home, Self-Care 01 Condition: Good Clinical Impression: Abdominal pain, Diabetes mellitus type 2 in obese, T wave inversion in EKG - Discharge Information Instructions: Abdominal Pain, Adult Referrals: Orly Lepe NP [Primary Care Provider] - Forms: ED Department Discharge Additional Instructions: Ultrasound on 10.21.19 at 1:00pm at [facility]. Do not eat or drink anything after 6:00am. Take Ibuprofen 800 mg with tylenol 1000 mg every 8 hours as needed for pain. Keep your appointment for your abdominal ultrasound at 1 pm
== END 2019-10-20 23:52 | disposition home or self-care (01) ==
LOC: FB.ED 21:42
DX: R10.11 Right upper quadrant pain (principal); E11.9 Type 2 diabetes mellitus without complications; E66.9 Obesity, unspecified; Z68.34 Body mass index [BMI] 34.0-34.9, adult; R94.31 Abnormal electrocardiogram [ECG] [EKG]; K21.9 Gastro-esophageal reflux disease without esophagitis; Z79.82 Long term (current) use of aspirin; Z79.84 Long term (current) use of oral hypoglycemic drugs; Z79.899 Other long term (current) drug therapy; Z88.0 Allergy status to penicillin; Z91.041 Radiographic dye allergy status; Z87.891 Personal history of nicotine dependence
CPT/HCPCS: 36415; 80053; 81001; 82150; 83690; 85025; 96372; 99284-25; A9270-GY; J0360

== ENCOUNTER 2019-11-14 23:14 | Emergency (ER) | payer MEDICARE, MEDICAID ==
[2019-11-14] MEDS ORDERED: Acetaminophen/Codeine 300-30 MG Tab PO ONE (23:46)
[2019-11-14] MEDS ORDERED: Pantoprazole 40 MG Tab.CR ONE (23:51)
--- NOTE | 2019-11-14 23:55 | EDM.PDOC ---
ED HPI GENERAL MEDICAL PROBLEM - General Chief Complaint: Respiratory Problem Stated Complaint: COUGH; THROAT PAIN; CHEST BURNING Time Seen by Provider: 11/14/19 23:40 Source of Information: Reports: Patient History Limitations: Reports: No Limitations - History of Present Illness INITIAL COMMENTS - FREE TEXT/NARRATIVE: Khadijah comes into [facility] ED with a 2 week hx of chest congestion and persistent cough, typically nonproductive. Tonight, there is some retrosternal burning and sore throat sxs. There has been no fever until a low grade temp appeared today. There is no chest pain, SOB, wheezing, or pleurisy. She was seen by PCP 9 days ago, and prescribed Zithromax and Tessalon Perles for suspected L sided CAP. Sxs have not improved, interferring with work and sleep. She does smoke, and has a PMH of asthma, although she claims to have stopped in recent months after taking Chantix. chest Pain Score (Numeric/FACES): 5 - Related Data Allergies Allergy/AdvReac Type Severity Reaction Status Date / Time Iodinated Contrast Media Allergy Hives Verified 10/20/19 22:00 [Iodinated Contrast- Oral and IV Dye] Penicillins Allergy Hives Verified 10/20/19 22:00 Home Meds: Home Meds Divalproex Sodium [Divalproex Sodium ER] 500 mg PO DAILY 12/09/18 [History] Doxepin [SINEquan] 10 - 30 mg PO Q6H PRN 12/09/18 [History] atorvaSTATin [Lipitor] 40 mg PO BEDTIME 12/09/18 [History] risperiDONE [Risperdal] 4 mg PO BEDTIME 12/09/18 [History] Aspirin [Halfprin] 81 mg PO DAILY 04/07/19 [History] Nitroglycerin 0.4 mg SL ASDIRECTED PRN 05/15/19 [History] metFORMIN HCl [Metformin HCl ER] 1,000 mg PO DAILY 05/15/19 [History] metFORMIN [Glucophage] 500 mg PO BEDTIME 05/15/19 [History] Past Medical History Cardiovascular History: Reports: Hypertension Respiratory History: Reports: Asthma Other Respiratory History: chronic smoker since she was 14 years old. Gastrointestinal History: Reports: GERD [employer] History: Reports: Psychiatric History: Reports: Addiction, Schizophrenia Other Psychiatric History: states that she used to use cocaine but has not been using for 8 years. Uses marijuana once in a while Endocrine/Metabolic History: Reports: Diabetes, Type II - Past Surgical History Musculoskeletal Surgical History: Reports: ORIF, Other (See Below) Other Musculoskeletal Surgeries/Procedures:: left ankle, right hand and wrist sx. Social & Family History - Family History Family Medical History: Noncontributory - Caffeine Use Caffeine Use: Reports: None Other Caffeine Use: iced coffee. - Living Situation & Occupation Occupation: Unemployed ED ROS GENERAL - Review of Systems Review Of Systems: See Below Constitutional: Reports: Fever, Decreased Appetite HEENT: Reports: Throat Pain Respiratory: Reports: Cough Cardiovascular: Reports: Chest Pain (retrosternal) Endocrine: Reports: No Symptoms GI/Abdominal: Reports: Other (GERD) : Reports: No Symptoms Musculoskeletal: Reports: No Symptoms Skin: Reports: No Symptoms Neurological: Reports: No Symptoms Psychiatric: Reports: Anxiety Hematologic/Lymphatic: Reports: No Symptoms Immunologic: Reports: No Symptoms ED EXAM, GENERAL - Physical Exam Exam: See Below Exam Limited By: No Limitations General Appearance: Alert, WD/WN, Anxious, Obese Eye Exam: Bilateral Eye: EOMI, Normal Inspection, PERRL Ears: Normal External Exam Nose: Normal Inspection Throat/Mouth: Normal Oropharynx, Normal Voice, No Airway Compromise Head: Normocephalic Neck: Normal Inspection, Supple, Non-Tender, Full Range of Motion Respiratory/Chest: No Respiratory Distress, No Accessory Muscle Use, Decreased Breath Sounds, Rhonchi, Prolonged Expiration Cardiovascular: Regular Rate, Rhythm, No Murmur GI/Abdominal: Normal Bowel Sounds, Soft, Non-Tender, No Organomegaly, No Distention, No Mass (Female) Exam: Deferred Rectal (Female) Exam: Deferred Back Exam: Normal Inspection Extremities: Normal Inspection Neurological: Alert, Oriented, CN II-XII Intact, Normal Cognition, No Motor/ Sensory Deficits Psychiatric: Normal Affect, Anxious Skin Exam: Warm, Dry, Intact, Normal Color, No Rash Lymphatic: No Adenopathy Course - Vital Signs Text/Narrative:: Following assessment, I administered Tylenol #3 x 2 for atypical chest pain, and Protonix 40 mg for GERD sxs. Screening labs including CBC and BMP were baseline, with CRP 3.1. A 2 view chest x ray noted no active infiltrates. An asthmatic bronchitis is suspected, as patient admitted to smoking again. Last Recorded V/S: Last Vital Signs Temp 38.2 C H 11/14/19 23:14 Pulse 106 H 11/14/19 23:14 Resp 20 11/14/19 23:14 BP 189/96 H 11/14/19 23:14 Pulse Ox 100 11/14/19 23:14 - Orders/Labs/Meds Orders: Active Orders 24 hr Category Date Time Status RT Aerosol Therapy [RC] ASDIRECTED Care 11/15/19 00:30 Active Chest 2V [CR] Stat Exams 11/14/19 23:48 Taken Pantoprazole [ProTONIX] Med 11/15/19 06:00 Active 40 mg PO 0600 Medication Orders Pantoprazole Sodium (Protonix) 40 mg PO 0600 DINORAH Last Admin: 11/14/19 23:53 Dose: 40 mg Labs: Laboratory Tests 11/14/19 11/14/19 11/14/19 Range/Units 23:57 23:57 23:57 WBC 6.4 (4.5-12.0) X10-3/uL RBC 4.37 (3.23-5.20) x10(6)uL Hgb 13.4 (11.5-15.5) g/dL Hct 39.7 (30.0-51.3) % MCV 90.8 (80-96) fL MCH 30.6 (27.7-33.6) pg MCHC 33.6 (32.2-35.4) g/dL RDW 11.8 (11.5-15.5) % Plt Count 190 (125-369) X10(3)uL MPV 9.6 (7.4-10.4) fL Neut % (Auto) 78.9 (46-82) % Lymph % (Auto) 14.5 (13-37) % Sac % (Auto) 4.8 (4-12) % Eos % (Auto) 1 (1.0-5.0) % Baso % (Auto) 1 (0-2) % Neut # (Auto) 5.1 (1.6-8.3) # Lymph # (Auto) 0.9 (0.6-5.0) # Sac # (Auto) 0.3 (0.0-1.3) # Eos # (Auto) 0.0 (0.0-0.8) # Baso # (Auto) 0.1 (0.0-0.2) # Sodium 140 (135-145) mmol/L Potassium 4.0 (3.5-5.3) mmol/L Chloride 102 (100-110) mmol/L Carbon Dioxide 24 (21-32) mmol/L BUN 10 (7-18) mg/dL Creatinine 0.8 (0.55-1.02) mg/dL Est Cr Clr Drug Dosing 75.45 mL/min Estimated GFR (MDRD) > 60 (>60) BUN/Creatinine Ratio 12.5 (9-20) Glucose 336 H (80-116) mg/dL Calcium 9.5 (8.6-10.2) mg/dL C-Reactive Protein 3.5 H* (0.5-0.9) mg/dL Meds: Medications Generic Name Dose Route Start Last Admin Trade Name Freq PRN Reason Stop Dose Admin Pantoprazole Sodium 40 mg 11/15/19 06:00 11/14/19 23:53 Protonix PO 40 mg 0600 DINORAH Administration Discontinued Medications Generic Name Dose Route Start Last Admin Trade Name Freq PRN Reason Stop Dose Admin Acetaminophen/Codeine Phosphate 2 tab 11/14/19 23:46 11/14/19 23:53 Tylenol With Codeine No.3 300mg/30mg PO 11/14/19 23:47 2 tab ONETIME ONE Administration Albuterol/Ipratropium 3 ml 11/15/19 00:30 11/15/19 00:34 Duoneb 3.0-0.5 Mg/3 Ml NEB 11/15/19 00:31 3 ml ONETIME ONE Administration Pantoprazole Sodium Confirm 11/14/19 23:51 11/15/19 00:33 Protonix Administered 11/14/19 23:52 Not Given Dose 40 mg .ROUTE .STK-MED ONE Prednisone 40 mg 11/15/19 00:29 11/15/19 00:34 Prednisone PO 11/15/19 00:30 40 mg ONETIME ONE Administration Departure - Departure Time of Disposition: 01:02 Disposition: Home, Self-Care 01 Condition: Fair Clinical Impression: Asthmatic bronchitis with acute exacerbation Qualifiers: Asthma severity: unspecified severity Asthma persistence: unspecified Qualified Code(s): J45.901 - Unspecified asthma with (acute) exacerbation - Discharge Information *PRESCRIPTION DRUG MONITORING PROGRAM REVIEWED*: Not Applicable *COPY OF PRESCRIPTION DRUG MONITORING REPORT IN PATIENT YANN: Not Applicable Instructions: Asthma, Adult Referrals: Orly Lepe NP [Primary Care Provider] - Forms: ED Department Discharge Sepsis Event Note - Focused Exam Vital Signs: Vital Signs Temp Pulse Resp BP Pulse Ox 11/14/19 23:14 38.2 C H 106 H 20 189/96 H 100 Date Exam was Performed: 11/15/19 Time Exam was Performed: 01:00 - Problem List & Annotations (1) Asthmatic bronchitis with acute exacerbation SNOMED Code(s): 384021639, 984874551 Code(s): J45.901 - UNSPECIFIED ASTHMA WITH (ACUTE) EXACERBATION Status: Acute Current Visit: Yes Annotation/Comment:: I suggested Prednisone 40 mg qd x 1 week and ProAirHFA MDI, but patient refused meds at this time. She will keep appt with PCP today. Qualifiers: Asthma severity: unspecified severity Asthma persistence: unspecified Qualified Code(s): J45.901 - Unspecified asthma with (acute) exacerbation - Problem List Review Problem List Initiated/Reviewed/Updated: Yes - My Orders Last 24 Hours: My Active Orders 11/14/19 23:48 Chest 2V [CR] Stat 11/15/19 00:30 RT Aerosol Therapy [RC] ASDIRECTED 11/15/19 06:00 Pantoprazole [ProTONIX] 40 mg PO 0600 - Assessment/Plan Last 24 Hours: My Active Orders 11/14/19 23:48 Chest 2V [CR] Stat 11/15/19 00:30 RT Aerosol Therapy [RC] ASDIRECTED 11/15/19 06:00 Pantoprazole [ProTONIX] 40 mg PO 0600 Plan: Follow up with PCP.
[2019-11-15] MEDS ORDERED: predniSONE 20 MG Tab PO ONE (00:29)
[2019-11-15] MEDS ORDERED: Albuterol/Ipratropium 3.0-0.5 MG/3 ML Neb Soln NEB ONE (00:30)
[2019-11-15] MEDS ORDERED: Pantoprazole 40 MG Tab.CR PO SCH (06:00)
== END 2019-11-15 01:20 | disposition home or self-care (01) ==
LOC: FB.ED 23:14
DX: J45.901 Unspecified asthma with (acute) exacerbation (principal); I10 Essential (primary) hypertension; E11.9 Type 2 diabetes mellitus without complications; K21.9 Gastro-esophageal reflux disease without esophagitis; Z91.041 Radiographic dye allergy status; Z88.0 Allergy status to penicillin; Z79.899 Other long term (current) drug therapy; Z79.84 Long term (current) use of oral hypoglycemic drugs; Z79.82 Long term (current) use of aspirin
CPT/HCPCS: 36415; 71046; 80048; 85025; 86140; 94640; 99284; A9270; J7620-GY

== ENCOUNTER 2020-02-01 17:15 | Emergency (ER) | payer MEDICARE, MEDICAID ==
[2020-02-01] MEDS ORDERED: Insulin Lispro 100 Unit/ML 3 ML KwikPen SUBCUT STA ×2 (17:45→18:21)
[2020-02-01] MEDS ORDERED: Sodium Chloride 0.9% 1,000 ML IV SCH (18:00)
--- NOTE | 2020-02-01 18:53 | EDM.PDOC ---
ED HPI GENERAL MEDICAL PROBLEM - General Stated Complaint: HIGH BLOOD SUGAR Time Seen by Provider: 02/01/20 17:45 Source of Information: Reports: Patient History Limitations: Reports: No Limitations - History of Present Illness INITIAL COMMENTS - FREE TEXT/NARRATIVE: Patient presented to the ED from the clinic because of an elevated BS of 526. She is otherwise asymptomatic. No fever,chills,N/V/D or abdominal pain. No dysuria, urgency or frequency except for intense vaginal itching which was treated with topical steroids x 1week. - Related Data Allergies Allergy/AdvReac Type Severity Reaction Status Date / Time Iodinated Contrast Media Allergy Hives Verified 02/01/20 18:23 [Iodinated Contrast- Oral and IV Dye] Penicillins Allergy Hives Verified 02/01/20 18:23 Home Meds: Home Meds Divalproex Sodium [Divalproex Sodium ER] 500 mg PO DAILY 12/09/18 [History] Doxepin [SINEquan] 10 - 30 mg PO Q6H PRN 12/09/18 [History] atorvaSTATin [Lipitor] 40 mg PO BEDTIME 12/09/18 [History] risperiDONE [Risperdal] 4 mg PO BEDTIME 12/09/18 [History] Aspirin [Halfprin] 81 mg PO DAILY 04/07/19 [History] Nitroglycerin 0.4 mg SL ASDIRECTED PRN 05/15/19 [History] metFORMIN HCl [Metformin HCl ER] 1,000 mg PO DAILY 05/15/19 [History] metFORMIN [Glucophage] 500 mg PO BEDTIME 05/15/19 [History] Past Medical History Cardiovascular History: Reports: Hypertension Respiratory History: Reports: Asthma Other Respiratory History: chronic smoker since she was 14 years old. 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 Uses marijuana once in a while Endocrine/Metabolic History: Reports: Diabetes, Type II - Past Surgical History Musculoskeletal Surgical History: Reports: ORIF, Other (See Below) Other Musculoskeletal Surgeries/Procedures:: left ankle, right hand and wrist sx. Social & Family History - Family History Family Medical History: Noncontributory - Caffeine Use Caffeine Use: Reports: None Other Caffeine Use: iced coffee. - Living Situation & Occupation Occupation: Unemployed ED ROS GENERAL - Review of Systems Review Of Systems: See Below Constitutional: Reports: No Symptoms HEENT: Reports: No Symptoms Respiratory: Reports: No Symptoms Cardiovascular: Reports: No Symptoms Endocrine: Reports: No Symptoms GI/Abdominal: Reports: No Symptoms : Reports: No Symptoms Musculoskeletal: Reports: No Symptoms Skin: Reports: No Symptoms Neurological: Reports: No Symptoms Psychiatric: Reports: No Symptoms ED EXAM, GENERAL - Physical Exam Exam: See Below Exam Limited By: No Limitations General Appearance: Alert, No Apparent Distress GI/Abdominal: Normal Bowel Sounds, Soft, Non-Tender (Female) Exam: Normal External Exam, Normal Speculum Exam, Normal Bimanual Exam Rectal (Female) Exam: Normal Exam, Normal Rectal Tone Back Exam: Normal Inspection, Full Range of Motion Extremities: Normal Inspection, Normal Range of Motion, Non-Tender, No Pedal Edema Neurological: Alert, Oriented, CN II-XII Intact, Normal Cognition Psychiatric: Normal Affect, Normal Mood Skin Exam: Warm, Dry, Intact, Normal Color Lymphatic: No Adenopathy Course - Vital Signs Text/Narrative:: Labs reviewed and discussed with patient and verbalized full understanding Lispro 30 U SCx 1 Diabetic diet NS 1 L bolus Prior to discharge his BS is 325 - Orders/Labs/Meds Orders: Active Orders 24 hr Category Date Time Status CULTURE URINE [RM] Stat Lab 02/01/20 18:53 Ordered Sodium Chloride 0.9% [Normal Saline] 1,000 ml Med 02/01/20 18:00 Active IV ASDIRECTED Medication Orders Sodium Chloride (Normal Saline) 1,000 mls @ 999 mls/hr IV ASDIRECTED DINORAH Last Admin: 02/01/20 17:58 Dose: 999 mls/hr Labs: Laboratory Tests 02/01/20 02/01/20 02/01/20 Range/Units 17:40 17:55 17:55 WBC 8.0 (4.5-12.0) X10-3/uL RBC 4.38 (3.23-5.20) x10(6)uL Hgb 13.4 (11.5-15.5) g/dL Hct 40.7 (30.0-51.3) % MCV 92.8 (80-96) fL MCH 30.6 (27.7-33.6) pg MCHC 32.9 (32.2-35.4) g/dL RDW 12.3 (11.5-15.5) % Plt Count 206 (125-369) X10(3)uL MPV 9.5 (7.4-10.4) fL Neut % (Auto) 53.5 (46-82) % Lymph % (Auto) 41.3 H (13-37) % [place] % (Auto) 3.5 L (4-12) % Eos % (Auto) 1 (1.0-5.0) % Baso % (Auto) 1 (0-2) % Neut # (Auto) 4.2 (1.6-8.3) # Lymph # (Auto) 3.3 (0.6-5.0) # [place] # (Auto) 0.3 (0.0-1.3) # Eos # (Auto) 0.1 (0.0-0.8) # Baso # (Auto) 0.1 (0.0-0.2) # Sodium 138 (135-145) mmol/L Potassium 4.3 (3.5-5.3) mmol/L Chloride 102 (100-110) mmol/L Carbon Dioxide 25 (21-32) mmol/L BUN 12 (7-18) mg/dL Creatinine 0.9 (0.55-1.02) mg/dL Est Cr Clr Drug Dosing TNP Estimated GFR (MDRD) > 60 (>60) BUN/Creatinine Ratio 13.3 (9-20) Glucose 490 H* D (80-116) mg/dL Calcium 8.9 (8.6-10.2) mg/dL Urine Color Yellow (YELLOW) Urine Appearance Slightly cloudy (CLEAR) Urine pH 5.0 (5.0-6.5) Ur Specific [place] 1.010 (1.010-1.025) Urine Protein Negative (NEGATIVE) mg/dL Urine Glucose (UA) >1000 H (NORMAL) mg/dL Urine Ketones Negative (NEGATIVE) mg/dL Urine Occult Blood Negative (NEGATIVE) Urine Nitrite Negative (NEGATIVE) Urine Bilirubin Negative (NEGATIVE) Urine Urobilinogen Normal (NEGATIVE) mg/dL Ur Leukocyte Esterase Small H (NEGATIVE) Urine RBC 0-5 (0-5) Urine WBC 0-5 (0-5) Ur Squamous Epith Cells Occasional (NS,R,O) Urine Bacteria Rare H (NS) Urine Yeast Few H (NS) Meds: Medications Generic Name Dose Route Start Last Admin Trade Name Qi PRN Reason Stop Dose Admin Sodium Chloride 1,000 mls @ 999 mls/hr 02/01/20 18:00 02/01/20 17:58 Normal Saline IV 999 mls/hr ASDIRECTED DINORAH Administration Discontinued Medications Generic Name Dose Route Start Last Admin Trade Name Qi PRN Reason Stop Dose Admin Insulin Human Lispro 40 unit 02/01/20 17:45 Humalog SUBCUT 02/01/20 17:46 NOW STA Insulin Human Lispro 30 unit 02/01/20 18:21 02/01/20 18:23 Humalog SUBCUT 02/01/20 18:22 30 units NOW STA Administration Departure - Departure Time of Disposition: 18:50 Disposition: Home, Self-Care 01 Condition: Good Clinical Impression: Hyperglycemia, Vaginal candidiasis - Discharge Information Referrals: PCP,None [Primary Care Provider] - Additional Instructions: Please read discharge instructions on hyperglycemia Quit using the topical steroids.It can increse your blood sugar Take fluconazol/diflucan 150 mg once daily for 2 days follow up as needed Sepsis Event Note - Focused Exam Date Exam was Performed: 02/01/20 Time Exam was Performed: 18:54 - My Orders Last 24 Hours: My Active Orders 02/01/20 18:00 Sodium Chloride 0.9% [Normal Saline] 1,000 ml IV ASDIRECTED 02/01/20 18:53 CULTURE URINE [RM] Stat - Assessment/Plan Last 24 Hours: My Active Orders 02/01/20 18:00 Sodium Chloride 0.9% [Normal Saline] 1,000 ml IV ASDIRECTED 02/01/20 18:53 CULTURE URINE [RM] Stat
--- NOTE | 2020-02-04 13:59 | PCM.SN ---
- Free Text/Narrative Note: Patient seen on 02/01/2024 elevated blood sugar. She had no urinary symptoms at that time. A urinalysis had 0-5 white cells and 05 red cells on what was described as a clean-catch specimen but there were many squamous epithelial cells. It was sent for culture and came back positive for Streptococcus agalactiae was 50-100,000 colony-forming units. The patient was treated with Diflucan because she also had a yeast infection in addition to treatment for her elevated blood sugar. I called the patient today and she was feeling somewhat better but her blood sugars were still elevated and she is slated to see her diabetic doctor on 02/07/2020. She is still having no urinary symptoms, no abdominal pain, no back pain and no fevers. I think this bacteria most probably represents a contamination and were to continue what she is doing and to follow-up with her diabetic doctor on 02/07/2020. She is comfortable with this plan.
== END 2020-02-01 19:02 | disposition home or self-care (01) ==
LOC: FB.ED 17:15
DX: E11.65 Type 2 diabetes mellitus with hyperglycemia (principal); B37.3 Candidiasis of vulva and vagina; I10 Essential (primary) hypertension; K21.9 Gastro-esophageal reflux disease without esophagitis; F20.9 Schizophrenia, unspecified; J45.909 Unspecified asthma, uncomplicated; Z91.041 Radiographic dye allergy status; Z88.0 Allergy status to penicillin; Z79.82 Long term (current) use of aspirin; Z79.84 Long term (current) use of oral hypoglycemic drugs; Z79.899 Other long term (current) drug therapy
CPT/HCPCS: 36415; 80048; 81001; 82962; 85025; 87086; 87088; 96360; 99283-25; J1815; J7030

== ENCOUNTER 2020-02-29 15:22 | Emergency (ER) | payer MEDICARE, MEDICAID ==
[2020-02-29] MEDS ORDERED: Nitroglycerin 0.4 MG Tab.SL SL ONE (15:38)
[2020-02-29] MEDS ORDERED: Aspirin 81 MG Tab.Chew PO ONE (15:38)
[2020-02-29] MEDS ORDERED: Sodium Chloride 0.9% 10 ML Syringe FLUSH PRN (15:38)
--- NOTE | 2020-02-29 16:14 | EDM.PDOC ---
ED HPI GENERAL MEDICAL PROBLEM - General Chief Complaint: Chest Pain Stated Complaint: CHEST PAIN Time Seen by Provider: 02/29/20 15:25 Source of Information: Reports: Patient History Limitations: Reports: No Limitations - History of Present Illness INITIAL COMMENTS - FREE TEXT/NARRATIVE: Patient presented to the ED because of chest pain. The pain is sharp over the sternal area and lasted for 2 minutes. There is no associated dyspnea,N/V. When the ER nurse unhooked her bra the pain was gone. Midsternal & L substernal chest radiating into back Pain Score (Numeric/FACES): 8 - Related Data Allergies Allergy/AdvReac Type Severity Reaction Status Date / Time Iodinated Contrast Media Allergy Hives Verified 02/29/20 15:36 [Iodinated Contrast- Oral and IV Dye] Penicillins Allergy Hives Verified 02/29/20 15:36 Home Meds: Home Meds Divalproex Sodium [Divalproex Sodium ER] 500 mg PO DAILY 12/09/18 [History] Doxepin [SINEquan] 10 - 30 mg PO Q6H PRN 12/09/18 [History] atorvaSTATin [Lipitor] 40 mg PO BEDTIME 12/09/18 [History] risperiDONE [Risperdal] 4 mg PO BEDTIME 12/09/18 [History] Aspirin [Halfprin] 81 mg PO DAILY 04/07/19 [History] Nitroglycerin 0.4 mg SL ASDIRECTED PRN 05/15/19 [History] Insulin Aspart [NovoLOG] 5 units SQ TID 02/29/20 [History] Insulin Detemir [Levemir] 20 unit SUBCUT DAILY 02/29/20 [History] Insulin Detemir [Levemir] 40 units SQ BEDTIME 02/29/20 [History] Terconazole [Terazol 7 Vaginal Crm] 1 appful DAILY 02/29/20 [History] Past Medical History Cardiovascular History: Reports: Hypertension Respiratory History: Reports: Asthma Other Respiratory History: chronic smoker since she was 14 years old. 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 Uses marijuana once in a while Endocrine/Metabolic History: Reports: Diabetes, Type II - Past Surgical History Musculoskeletal Surgical History: Reports: ORIF, Other (See Below) Other Musculoskeletal Surgeries/Procedures:: left ankle, right hand and wrist sx. Social & Family History - Family History Family Medical History: Noncontributory - Caffeine Use Caffeine Use: Reports: None Other Caffeine Use: iced coffee. - Living Situation & Occupation Occupation: Unemployed ED ROS GENERAL - Review of Systems Review Of Systems: See Below Constitutional: Reports: No Symptoms HEENT: Reports: No Symptoms Respiratory: Reports: No Symptoms Cardiovascular: Reports: Chest Pain Endocrine: Reports: No Symptoms GI/Abdominal: Reports: No Symptoms : Reports: No Symptoms Musculoskeletal: Reports: No Symptoms Skin: Reports: No Symptoms Neurological: Reports: No Symptoms ED EXAM, GENERAL - Physical Exam Exam: See Below Exam Limited By: No Limitations General Appearance: Alert, No Apparent Distress Ears: Normal External Exam Nose: Normal Inspection, Normal Mucosa Throat/Mouth: Normal Inspection, Normal Lips Head: Atraumatic, Normocephalic Neck: Normal Inspection, Supple, Non-Tender Respiratory/Chest: No Respiratory Distress, Lungs Clear, Normal Breath Sounds Cardiovascular: Normal Peripheral Pulses, Regular Rate, Rhythm, No Edema, No Gallop GI/Abdominal: Normal Bowel Sounds, Soft, Non-Tender, No Organomegaly Extremities: Normal Inspection, Normal Range of Motion, Non-Tender Neurological: Alert, Oriented, CN II-XII Intact, Normal Cognition Course - Vital Signs Text/Narrative:: Labs/EKG was discussed with patient and verbalized full understanding ASA 324 mg po x1 EKG-NSR-no acute changes Trop-neg Last Recorded V/S: Last Vital Signs Temp 36.8 C 02/29/20 15:22 Pulse 69 02/29/20 16:15 Resp 18 02/29/20 16:15 BP 156/105 H 02/29/20 16:15 Pulse Ox 98 02/29/20 16:15 - Orders/Labs/Meds Orders: Active Orders 24 hr Category Date Time Status EKG Documentation Completion [RC] ASDIRECTED Care 02/29/20 15:37 Active EKG 12 Lead [EK] Routine Ther 02/29/20 15:34 Ordered Labs: Laboratory Tests 02/29/20 02/29/20 02/29/20 Range/Units 15:32 15:32 15:32 WBC 7.8 (4.5-12.0) X10-3/uL RBC 4.49 (3.23-5.20) x10(6)uL Hgb 13.8 (11.5-15.5) g/dL Hct 41.2 (30.0-51.3) % MCV 91.8 (80-96) fL MCH 30.7 (27.7-33.6) pg MCHC 33.5 (32.2-35.4) g/dL RDW 12.5 (11.5-15.5) % Plt Count 201 (125-369) X10(3)uL MPV 10.1 (7.4-10.4) fL Neut % (Auto) 55.0 (46-82) % Lymph % (Auto) 37.5 H (13-37) % [place] % (Auto) 4.0 (4-12) % Eos % (Auto) 1 (1.0-5.0) % Baso % (Auto) 3 H (0-2) % Neut # (Auto) 4.3 (1.6-8.3) # Lymph # (Auto) 2.9 (0.6-5.0) # [place] # (Auto) 0.3 (0.0-1.3) # Eos # (Auto) 0.1 (0.0-0.8) # Baso # (Auto) 0.2 (0.0-0.2) # PT 9.6 (9.0-11.1) sec INR 0.88 L (1.00-1.24) APTT 23.1 L (24.4-33.2) SECONDS Sodium 141 (135-145) mmol/L Potassium 4.0 (3.5-5.3) mmol/L Chloride 104 (100-110) mmol/L Carbon Dioxide 24 (21-32) mmol/L BUN 11 (7-18) mg/dL Creatinine 0.8 (0.55-1.02) mg/dL Est Cr Clr Drug Dosing 75.45 mL/min Estimated GFR (MDRD) > 60 (>60) BUN/Creatinine Ratio 13.8 (9-20) Glucose 311 H D (80-116) mg/dL Calcium 8.9 (8.6-10.2) mg/dL Total Bilirubin 0.3 (0.1-1.3) mg/dL AST 18 D (5-25) IU/L ALT 31 D (12-36) U/L Alkaline Phosphatase 117 H (56-112) IU/L Troponin I (4.0-60.3) pg/mL Total Protein 7.7 (6.0-8.0) g/dL Albumin 3.3 L (3.5-5.2) g/dL Globulin 4.4 g/dL Albumin/Globulin Ratio 0.8 04/15/20 Range/Units 15:32 WBC (4.5-12.0) X10-3/uL RBC (3.23-5.20) x10(6)uL Hgb (11.5-15.5) g/dL Hct (30.0-51.3) % MCV (80-96) fL MCH (27.7-33.6) pg MCHC (32.2-35.4) g/dL RDW (11.5-15.5) % Plt Count (125-369) X10(3)uL MPV (7.4-10.4) fL Neut % (Auto) (46-82) % Lymph % (Auto) (13-37) % [place] % (Auto) (4-12) % Eos % (Auto) (1.0-5.0) % Baso % (Auto) (0-2) % Neut # (Auto) (1.6-8.3) # Lymph # (Auto) (0.6-5.0) # [place] # (Auto) (0.0-1.3) # Eos # (Auto) (0.0-0.8) # Baso # (Auto) (0.0-0.2) # PT (9.0-11.1) sec INR (1.00-1.24) APTT (24.4-33.2) SECONDS Sodium (135-145) mmol/L Potassium (3.5-5.3) mmol/L Chloride (100-110) mmol/L Carbon Dioxide (21-32) mmol/L BUN (7-18) mg/dL Creatinine (0.55-1.02) mg/dL Est Cr Clr Drug Dosing mL/min Estimated GFR (MDRD) (>60) BUN/Creatinine Ratio (9-20) Glucose (80-116) mg/dL Calcium (8.6-10.2) mg/dL Total Bilirubin (0.1-1.3) mg/dL AST (5-25) IU/L ALT (12-36) U/L Alkaline Phosphatase (56-112) IU/L Troponin I 16.1 (4.0-60.3) pg/mL Total Protein (6.0-8.0) g/dL Albumin (3.5-5.2) g/dL Globulin g/dL Albumin/Globulin Ratio Meds: Medications Discontinued Medications Generic Name Dose Route Start Last Admin Trade Name Freq PRN Reason Stop Dose Admin Aspirin 324 mg 02/29/20 15:38 02/29/20 15:40 Aspirin PO 02/29/20 15:39 324 mg ONETIME ONE Administration Nitroglycerin 0.4 mg 02/29/20 15:38 02/29/20 18:53 Nitrostat SL 02/29/20 15:39 Not Given ONETIME ONE Sodium Chloride 10 ml 02/29/20 15:38 Saline Flush FLUSH ASDIRECTED PRN Keep Vein Open Departure - Departure Time of Disposition: 16:20 Disposition: Home, Self-Care 01 Condition: Good Clinical Impression: Atypical chest pain Instructions: Nonspecific Chest Pain, Adult Referrals: PCP,None [Primary Care Provider] - Forms: ED Department Discharge Additional Instructions: please read discharge instructions on atypical chest pain follow up with your doctor if your chest pain is becoming more frequent you can take ibuprofen 800 mg with tylenol 1000 mg every 8 hours as needed for pain Sepsis Event Note - Evaluation Sepsis Screening Result: No Definite Risk - Focused Exam Vital Signs: Vital Signs Temp Pulse Resp BP Pulse Ox 02/29/20 16:15 69 18 156/105 H 98 02/29/20 16:00 68 19 150/87 H 99 02/29/20 15:22 36.8 C 77 20 168/100 H 100 Date Exam was Performed: 02/29/20 Time Exam was Performed: 23:11 - My Orders Last 24 Hours: My Active Orders 02/29/20 15:34 EKG 12 Lead [EK] Routine 02/29/20 15:37 EKG Documentation Completion [RC] ASDIRECTED - Assessment/Plan Last 24 Hours: My Active Orders 02/29/20 15:34 EKG 12 Lead [EK] Routine 02/29/20 15:37 EKG Documentation Completion [RC] ASDIRECTED
--- NOTE | 2020-02-29 16:24 | CR ---
INDICATION: Chest pain. CHEST, ONE VIEW: AP upright portable view of the chest 02/29/20 was compared with 11/15/19 and . The heart did not appear enlarged. The aorta is somewhat tortuous with calcification in the arch. Bridging hyperostotic changes are noted in the mid to lower thoracic spine. An active infiltrate or effusion was not identified. Evidence of exogenous obesity is noted. Overlying EKG leads are noted. IMPRESSION: No definite acute process. MTDD
== END 2020-02-29 16:30 | disposition home or self-care (01) ==
LOC: FB.ED 15:22
DX: R07.89 Other chest pain (principal); J45.909 Unspecified asthma, uncomplicated; F20.9 Schizophrenia, unspecified; K21.9 Gastro-esophageal reflux disease without esophagitis; E11.9 Type 2 diabetes mellitus without complications; Z79.4 Long term (current) use of insulin; Z79.899 Other long term (current) drug therapy; Z79.82 Long term (current) use of aspirin; Z91.041 Radiographic dye allergy status; Z88.0 Allergy status to penicillin; F17.200 Nicotine dependence, unspecified, uncomplicated
CPT/HCPCS: 36415; 71045; 80053; 84484; 85025; 85610; 85730; 93005; 99285-25; A9270-GY

== ENCOUNTER 2020-05-28 03:43 | Emergency (ER) | payer MEDICARE, MEDICAID ==
[2020-05-28] MEDS ORDERED: Ketorolac 30 MG/ML SDV IVPUSH ONE (04:27)
[2020-05-28] MEDS ORDERED: Acetaminophen 500 MG Tab PO ONE (04:27)
--- NOTE | 2020-05-28 04:35 | EDM.PDOC ---
ED HPI GENERAL MEDICAL PROBLEM - General Chief Complaint: Chest Pain Stated Complaint: CHEST PAIN Time Seen by Provider: 05/28/20 04:00 Source of Information: Reports: Patient History Limitations: Reports: No Limitations - History of Present Illness INITIAL COMMENTS - FREE TEXT/NARRATIVE: c/o R sided CP lives lone, not working, no children, home yesterday, felt tired much of the day and took naps and rested, appetite okay went to bed at 12:30a, did not fall asleep, at 2:30a she had sharp pain in her L mid chest, no radiation altho she commented that she had soreness in her R lateral neck during the day, no neck pain now pain inc'd with DB, movement, bending, walking did not try heat no cough, no n/v, no sob, no f/c/d has had similar cp in past, usually below the breast no prior CV problems per pt, has had pneumonia in the pst, states she has asthma and an HFA although has not used it in a long time says her PCP is Orly has had 14 ED visits in past 1.5y with several pain c/o including prior c/o pain d-dimer neg in past trop x 3 in 2019 were < 0.017, last trop 3m ago was 16 A1C was 8.2 from 10m ago CRP 3.5 from 7m ago and 2.3 from 10m ago EKG now with inverted T waves in V4-6, I-3, AVL and AVF which are old c/w 20 CxR 3m ago neg, CxR twice in 2019 were neg comes to ED via EMS, given ASA by EMS, did not take pain meds at home, says she took her atorvastatin last night which is a new med takes insulin QID, checks BS QID in AM takes 20u Novolin and 40u Levemir, at noon and supper takes 20u Novolin, at bedtime takes 50u Levemir right side chest Pain Score (Numeric/FACES): 8 - Related Data Allergies Allergy/AdvReac Type Severity Reaction Status Date / Time Iodinated Contrast Media Allergy Hives Verified 02/29/20 15:36 [Iodinated Contrast- Oral and IV Dye] Penicillins Allergy Hives Verified 02/29/20 15:36 Home Meds: Home Meds Divalproex Sodium [Divalproex Sodium ER] 500 mg PO DAILY 12/09/18 [History] Doxepin [SINEquan] 10 - 30 mg PO Q6H PRN 12/09/18 [History] atorvaSTATin [Lipitor] 40 mg PO BEDTIME 12/09/18 [History] risperiDONE [Risperdal] 4 mg PO BEDTIME 12/09/18 [History] Aspirin [Halfprin] 81 mg PO DAILY 04/07/19 [History] Nitroglycerin 0.4 mg SL ASDIRECTED PRN 05/15/19 [History] Insulin Aspart [NovoLOG] 5 units SQ TID 02/29/20 [History] Insulin Detemir [Levemir] 20 unit SUBCUT DAILY 02/29/20 [History] Insulin Detemir [Levemir] 40 units SQ BEDTIME 02/29/20 [History] Terconazole [Terazol 7 Vaginal Crm] 1 appful DAILY 02/29/20 [History] Past Medical History Cardiovascular History: Reports: Hypertension Respiratory History: Reports: Asthma Other Respiratory History: chronic smoker since she was 14 years old. 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 Uses marijuana once in a while Endocrine/Metabolic History: Reports: Diabetes, Type II - Past Surgical History Musculoskeletal Surgical History: Reports: ORIF, Other (See Below) Other Musculoskeletal Surgeries/Procedures:: left ankle, right hand and wrist sx. Social & Family History - Family History Family Medical History: Noncontributory - Tobacco Use Smoking Status *Q: Current Every Day Smoker Years of Tobacco use: 40 Packs/Tins Daily: 0.5 - Caffeine Use Caffeine Use: Reports: None Other Caffeine Use: iced coffee. - Living Situation & Occupation Occupation: Unemployed ED ROS GENERAL - Review of Systems Review Of Systems: See Below Constitutional: Reports: No Symptoms. Denies: Fever, Chills, Malaise HEENT: Reports: No Symptoms Respiratory: Reports: No Symptoms. Denies: Shortness of Breath, Wheezing, Cough Cardiovascular: Reports: Chest Pain. Denies: Edema, Palpitations Endocrine: Reports: No Symptoms GI/Abdominal: Reports: No Symptoms. Denies: Abdominal Pain : Reports: No Symptoms Musculoskeletal: Reports: No Symptoms Skin: Reports: No Symptoms Neurological: Reports: No Symptoms Psychiatric: Reports: No Symptoms Hematologic/Lymphatic: Reports: No Symptoms Immunologic: Reports: No Symptoms ED EXAM, GENERAL - Physical Exam Exam: See Below Exam Limited By: No Limitations General Appearance: Alert, WD/WN, No Apparent Distress, Other (watching TV on phone, normal speech, good eye contact) Eye Exam: Bilateral Eye: EOMI, PERRL Ears: Normal External Exam, Hearing Grossly Normal Nose: Normal Inspection, Normal Mucosa, No Blood Throat/Mouth: Normal Inspection, Normal Lips, Normal Teeth, Normal Gums, Normal Oropharynx, Normal Voice, No Airway Compromise Head: Atraumatic, Normocephalic Neck: Normal Inspection, Supple, Non-Tender, Full Range of Motion. No: Lymphadenopathy (R), Lymphadenopathy (L) Respiratory/Chest: No Respiratory Distress, Lungs Clear, Normal Breath Sounds, No Accessory Muscle Use, Other (winces and withdraws to light touch in midclavicular line in mid chest, less tender near sternum and lateral, L chest NT, neck NT, FROM of neck, BS symmetric b/l, no wheeze, good AE) Cardiovascular: Normal Peripheral Pulses, Regular Rate, Rhythm, No Edema, No Gallop, No JVD, No Murmur, No Rub Course - Vital Signs Last Recorded V/S: Last Vital Signs Temp 36.6 C 05/28/20 03:43 Pulse 76 05/28/20 03:43 Resp 16 05/28/20 03:43 BP 185/124 H 05/28/20 03:43 Pulse Ox 99 05/28/20 03:43 - Orders/Labs/Meds Orders: Active Orders 24 hr Category Date Time Status EKG Documentation Completion [RC] ASDIRECTED Care 05/28/20 04:40 Active diphenhydrAMINE [Benadryl] Med 05/28/20 05:36 Once 25 mg IVPUSH ONETIME ONE EKG 12 Lead [EK] Routine Ther 05/28/20 04:40 Ordered Labs: Laboratory Tests 05/28/20 05/28/20 05/28/20 Range/Units 04:34 04:34 04:34 WBC 8.6 (4.5-12.0) X10-3/uL RBC 4.01 (3.23-5.20) x10(6)uL Hgb 12.0 (11.5-15.5) g/dL Hct 37.6 (30.0-51.3) % MCV 93.7 (80-96) fL MCH 29.9 (27.7-33.6) pg MCHC 31.9 L (32.2-35.4) g/dL RDW 12.4 (11.5-15.5) % Plt Count 217 (125-369) X10(3)uL MPV 9.9 (7.4-10.4) fL Neut % (Auto) 48.7 (46-82) % Lymph % (Auto) 45.6 H (13-37) % [place] % (Auto) 4.2 (4-12) % Eos % (Auto) 1 (1.0-5.0) % Baso % (Auto) 1 (0-2) % Neut # (Auto) 4.2 (1.6-8.3) # Lymph # (Auto) 3.9 (0.6-5.0) # [place] # (Auto) 0.4 (0.0-1.3) # Eos # (Auto) 0.1 (0.0-0.8) # Baso # (Auto) 0.0 (0.0-0.2) # D-Dimer, Quantitative 0.40 (0.0-0.59) mg/LFEU Sodium 139 (135-145) mmol/L Potassium 4.0 (3.5-5.3) mmol/L Chloride 104 (100-110) mmol/L Carbon Dioxide 27 (21-32) mmol/L BUN 11 (7-18) mg/dL Creatinine 0.8 (0.55-1.02) mg/dL Est Cr Clr Drug Dosing 75.45 mL/min Estimated GFR (MDRD) > 60 (>60) BUN/Creatinine Ratio 13.8 (9-20) Glucose 255 H (80-116) mg/dL Calcium 9.0 (8.6-10.2) mg/dL Total Bilirubin 0.3 (0.1-1.3) mg/dL AST 18 (5-25) IU/L ALT 35 D (12-36) U/L Alkaline Phosphatase 103 (56-112) IU/L Troponin I (4.0-60.3) pg/mL C-Reactive Protein (0.5-0.9) mg/dL Total Protein 7.0 (6.0-8.0) g/dL Albumin 3.3 L (3.5-5.2) g/dL Globulin 3.7 g/dL Albumin/Globulin Ratio 0.9 07/13/20 Range/Units 04:34 WBC (4.5-12.0) X10-3/uL RBC (3.23-5.20) x10(6)uL Hgb (11.5-15.5) g/dL Hct (30.0-51.3) % MCV (80-96) fL MCH (27.7-33.6) pg MCHC (32.2-35.4) g/dL RDW (11.5-15.5) % Plt Count (125-369) X10(3)uL MPV (7.4-10.4) fL Neut % (Auto) (46-82) % Lymph % (Auto) (13-37) % [place] % (Auto) (4-12) % Eos % (Auto) (1.0-5.0) % Baso % (Auto) (0-2) % Neut # (Auto) (1.6-8.3) # Lymph # (Auto) (0.6-5.0) # [place] # (Auto) (0.0-1.3) # Eos # (Auto) (0.0-0.8) # Baso # (Auto) (0.0-0.2) # D-Dimer, Quantitative (0.0-0.59) mg/LFEU Sodium (135-145) mmol/L Potassium (3.5-5.3) mmol/L Chloride (100-110) mmol/L Carbon Dioxide (21-32) mmol/L BUN (7-18) mg/dL Creatinine (0.55-1.02) mg/dL Est Cr Clr Drug Dosing mL/min Estimated GFR (MDRD) (>60) BUN/Creatinine Ratio (9-20) Glucose (80-116) mg/dL Calcium (8.6-10.2) mg/dL Total Bilirubin (0.1-1.3) mg/dL AST (5-25) IU/L ALT (12-36) U/L Alkaline Phosphatase (56-112) IU/L Troponin I 17.5 (4.0-60.3) pg/mL C-Reactive Protein 1.6 H (0.5-0.9) mg/dL Total Protein (6.0-8.0) g/dL Albumin (3.5-5.2) g/dL Globulin g/dL Albumin/Globulin Ratio Meds: Medications Discontinued Medications Generic Name Dose Route Start Last Admin Trade Name Qi PRN Reason Stop Dose Admin Acetaminophen 1,000 mg 05/28/20 04:27 05/28/20 04:33 Tylenol Extra Strength PO 05/28/20 04:28 1,000 mg ONETIME ONE Administration Ketorolac Tromethamine 30 mg 05/28/20 04:27 05/28/20 04:33 Toradol IVPUSH 05/28/20 04:28 30 mg ONETIME ONE Administration - Re-Assessments/Exams Free Text/Narrative Re-Assessment/Exam: 05/28/20 05:44 BP better at 162/89, only on lisinopril for BP, says she has not been taking BP at home watching TV on her phone and laughing says pain is much better, now has a headache, not able to sleep, will give Benadryl 25 mg IV prior to d/c pt agrees to f/u with PCP labs unremarkable, CRP still inc'd slightly then before, altho improved d-dimer neg, trop wnl and unchanged from previous no clinical evidence of cardiac or pulmonary problems CxR done 3m ago and not repeated Departure - Departure Time of Disposition: 05:37 Disposition: Home, Self-Care 01 Condition: Good Clinical Impression: Muscle strain of anterior chest wall, Elevated blood pressure reading - Discharge Information *PRESCRIPTION DRUG MONITORING PROGRAM REVIEWED*: Not Applicable *COPY OF PRESCRIPTION DRUG MONITORING REPORT IN PATIENT YANN: Not Applicable Instructions: Chest Wall Pain Forms: ED Department Discharge Additional Instructions: You have inflammation of the chest wall, which should respond well to anti- inflammatory medications. Take acetaminophen 500 mg 2 tabs 3 times a day for 3-5 days, longer if needed. Also take Aleve 2 tabs in the morning, 1 tab in the middle of the day, and 2 tabs in the evening, longer if needed. Take the acetaminophen and Aleve at the same day. Use heat for 10 minutes on the chest wall 4 times a day for 3-5 days, longer if needed. Continue to take the lisinopril for your blood pressure and to monitor your blood pressure at home twice a day. See your doctor in 2-3 days for further evaluation and recommendations. Return to ED if you are feeling worse. Sepsis Event Note (ED) - Evaluation Sepsis Screening Result: No Definite Risk - Focused Exam Vital Signs: Vital Signs Temp Pulse Resp BP Pulse Ox 05/28/20 03:43 36.6 C 76 16 185/124 H 99 - My Orders Last 24 Hours: My Active Orders 05/28/20 04:40 EKG Documentation Completion [RC] ASDIRECTED EKG 12 Lead [EK] Routine 05/28/20 05:36 diphenhydrAMINE [Benadryl] 25 mg IVPUSH ONETIME ONE - Assessment/Plan Last 24 Hours: My Active Orders 05/28/20 04:40 EKG Documentation Completion [RC] ASDIRECTED EKG 12 Lead [EK] Routine 05/28/20 05:36 diphenhydrAMINE [Benadryl] 25 mg IVPUSH ONETIME ONE
[2020-05-28] MEDS ORDERED: diphenhydrAMINE 50 MG/ML SDV IVPUSH ONE (05:36)
== END 2020-05-28 06:00 | disposition home or self-care (01) ==
LOC: FB.ED 03:43
DX: S29.011A Strain of muscle and tendon of front wall of thorax, initial encounter (principal); I10 Essential (primary) hypertension; E11.9 Type 2 diabetes mellitus without complications; F20.9 Schizophrenia, unspecified; F17.210 Nicotine dependence, cigarettes, uncomplicated; Z88.0 Allergy status to penicillin; Z91.041 Radiographic dye allergy status; Z79.899 Other long term (current) drug therapy; Z79.82 Long term (current) use of aspirin; Z79.4 Long term (current) use of insulin; X58.XXXA Exposure to other specified factors, initial encounter
CPT/HCPCS: 36415; 80053; 84484; 85025; 85379; 86140; 93005; 96374; 96375; 99285; A9270; J1200; J1885; 93010; 99284

== ENCOUNTER 2020-06-07 17:47 | Emergency (ER) | payer MEDICARE, MEDICAID ==
[2020-06-07] MEDS ORDERED: Acetaminophen/HYDROcodone 325-5 MG Tab PO ONE (17:48)
--- NOTE | 2020-06-07 19:23 | EDM.PDOC ---
ED HPI GENERAL MEDICAL PROBLEM - General Chief Complaint: Lower Extremity Injury/Pain Stated Complaint: L ANKLE PAIN Time Seen by Provider: 06/07/20 19:00 Source of Information: Reports: Patient History Limitations: Reports: No Limitations - History of Present Illness INITIAL COMMENTS - FREE TEXT/NARRATIVE: 59-year-old female who reports that upon awakening at about 8 AM today she noticed some pain along her left lateral ankle. It was a mild pain that was aching and throbbing. The pain has progressively worsened through the day and it has worsened to the point that she cannot bear weight on her left foot. The pain is along the lateral aspect of the ankle. She has no pain along the medial aspect of the ankle. There is some swelling along the lateral aspect of the ankle. She has had no fevers or chills. No nausea or vomiting. No other joint pains. She has had no trauma to the area. She did have an open reduction internal fixation of left ankle performed about 15 or 16 years ago and she still has metal plate in the left ankle. The pain is rated by her as a 10/10. It does not radiate. It is worse with palpation and movement and also when she tries to bear weight on her left foot. No leg or knee pain. No calf pain. She does have some numbness in the toes of her left foot. She has had no nasal congestion or sore throat. There are no other associated signs or symptoms. There are no other modifying factors. Duration: Getting Worse Location: Reports: Lower Extremity, Left (Left ankle.) Quality: Reports: Ache, Sharp, Throbbing Severity: Severe Improves with: Reports: Immobilization, Rest Worsens with: Reports: Other (Palpation. 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: Reports: Other Medication(s) (Fentanyl IV given en route by EMS personnel.), Other (see below) - Related Data Allergies Allergy/AdvReac Type Severity Reaction Status Date / Time Iodinated Contrast Media Allergy Hives Verified 06/07/20 19:11 [Iodinated Contrast- Oral and IV Dye] Penicillins Allergy Hives Verified 06/07/20 19:11 Home Meds: Home Meds Divalproex Sodium [Divalproex Sodium ER] 500 mg PO DAILY 12/09/18 [History] Doxepin [SINEquan] 10 - 30 mg PO Q6H PRN 12/09/18 [History] atorvaSTATin [Lipitor] 40 mg PO BEDTIME 12/09/18 [History] risperiDONE [Risperdal] 4 mg PO BEDTIME 12/09/18 [History] Aspirin [Halfprin] 81 mg PO DAILY 04/07/19 [History] Nitroglycerin 0.4 mg SL ASDIRECTED PRN 05/15/19 [History] Insulin Aspart [NovoLOG] 5 units SQ TID 02/29/20 [History] Insulin Detemir [Levemir] 20 unit SUBCUT DAILY 02/29/20 [History] Insulin Detemir [Levemir] 40 units SQ BEDTIME 02/29/20 [History] Terconazole [Terazol 7 Vaginal Crm] 1 appful DAILY 02/29/20 [History] Past Medical History Cardiovascular History: Reports: High Cholesterol, Hypertension Respiratory History: Reports: Asthma Other Respiratory History: chronic smoker since she was 14 years old. 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 Social & Family History - Tobacco Use Smoking Status *Q: Current Every Day Smoker Years of Tobacco use: 45 Packs/Tins Daily: 0.1 - Caffeine Use Caffeine Use: Reports: None Other Caffeine Use: iced coffee. - Alcohol Use Alcohol Use History: No - Recreational Drug Use Recreational Drug Use: No Drug Use in Last 12 Months: No - Living Situation & Occupation Occupation: Unemployed Review of Systems - Review of Systems Review Of Systems: See Below Constitutional: Reports: No Symptoms Eyes: Reports: No Symptoms Ears: Reports: No Symptoms Nose: Reports: No Symptoms Mouth/Throat: Reports: No Symptoms Respiratory: Reports: No Symptoms Cardiovascular: Reports: No Symptoms GI/Abdominal: Reports: No Symptoms Genitourinary: Reports: No Symptoms Musculoskeletal: Reports: Other (Left lateral ankle pain over the lateral malleolus.) Skin: Reports: No Symptoms Neurological: Reports: No Symptoms Psychiatric: Reports: No Symptoms ED EXAM, GENERAL - Physical Exam Exam: See Below Exam Limited By: No Limitations General Appearance: Alert, WD/WN, Mild Distress (Appears in pain.) Eye Exam: Bilateral Eye: EOMI, Normal Inspection, PERRL Ears: Normal External Exam, Hearing Grossly Normal Ear Exam: Bilateral Ear: Auricle Normal Nose: Normal Inspection, Normal Mucosa, No Blood Throat/Mouth: Normal Inspection, Normal Oropharynx, Normal Voice, No Airway Compromise Head: Atraumatic, Normocephalic Neck: Normal Inspection, Supple, Non-Tender, Full Range of Motion Respiratory/Chest: No Respiratory Distress, Lungs Clear, Normal Breath Sounds, No Accessory Muscle Use, Chest Non-Tender Cardiovascular: Normal Peripheral Pulses, Regular Rate, Rhythm, No Murmur Peripheral Pulses: 2+: Radial (L), Radial (R), Dorsalis Pedis (L), Dorsalis Pedis (R) GI/Abdominal: Normal Bowel Sounds, Soft, Non-Tender, No Mass, Other (Protuberant) Back Exam: Normal Inspection Extremities: Normal Capillary Refill, Limited Range of Motion (Secondary to pain in left ankle. Marked tenderness over the left lateral malleolus with some swelling. No definite effusion noted. No increased warmth.) Neurological: Alert, Oriented, CN II-XII Intact, Normal Cognition, No Motor/Sensory Deficits Psychiatric: Normal Affect, Normal Mood Skin Exam: Warm, Dry, Intact, Normal Color, No Rash Course - Vital Signs Last Recorded V/S: Last Vital Signs Temp 36.6 C 06/07/20 20:22 Pulse 66 06/07/20 20:22 Resp 18 06/07/20 20:22 BP 168/88 H 06/07/20 20:22 Pulse Ox 97 06/07/20 20:22 - Orders/Labs/Meds Orders: Active Orders 24 hr Category Date Time Status Paul Bandage [RC] ONETIME Care 06/07/20 21:21 Ordered Ankle Min 3V Lt [CR] Stat Exams 06/07/20 19:23 Taken Lower Extremity wo Cont Lt [CT] Stat Exams 06/07/20 20:00 Taken Labs: Laboratory Tests 06/07/20 06/07/20 06/07/20 Range/Units 19:40 19:40 19:40 WBC 9.1 (4.5-12.0) X10-3/uL RBC 4.01 (3.23-5.20) x10(6)uL Hgb 12.3 (11.5-15.5) g/dL Hct 37.4 (30.0-51.3) % MCV 93.2 (80-96) fL MCH 30.6 (27.7-33.6) pg MCHC 32.8 (32.2-35.4) g/dL RDW 12.2 (11.5-15.5) % Plt Count 236 (125-369) X10(3)uL MPV 9.4 (7.4-10.4) fL Neut % (Auto) 52.1 (46-82) % Lymph % (Auto) 42.5 H (13-37) % Stearns % (Auto) 3.9 L (4-12) % Eos % (Auto) 1 (1.0-5.0) % Baso % (Auto) 1 (0-2) % Neut # (Auto) 4.7 (1.6-8.3) # Lymph # (Auto) 3.9 (0.6-5.0) # Stearns # (Auto) 0.4 (0.0-1.3) # Eos # (Auto) 0.1 (0.0-0.8) # Baso # (Auto) 0.0 (0.0-0.2) # Sodium 139 (135-145) mmol/L Potassium 4.2 (3.5-5.3) mmol/L Chloride 105 (100-110) mmol/L Carbon Dioxide 28 (21-32) mmol/L BUN 14 (7-18) mg/dL Creatinine 0.8 (0.55-1.02) mg/dL Est Cr Clr Drug Dosing 75.45 mL/min Estimated GFR (MDRD) > 60 (>60) BUN/Creatinine Ratio 17.5 (9-20) Glucose 199 H (80-116) mg/dL Calcium 8.8 (8.6-10.2) mg/dL Total Bilirubin 0.3 (0.1-1.3) mg/dL AST 18 (5-25) IU/L ALT 33 (12-36) U/L Alkaline Phosphatase 104 (56-112) IU/L C-Reactive Protein 2.0 H (0.5-0.9) mg/dL Total Protein 7.0 (6.0-8.0) g/dL Albumin 3.4 L (3.5-5.2) g/dL Globulin 3.6 g/dL Albumin/Globulin Ratio 0.9 - Radiology Interpretation Free Text/Narrative:: Left ankle x-ray shows no acute disease per the radiologist. CT scan of left ankle shows no fracture. There is no effusion. There is no evidence of inflammatory change. There is a lytic lesion in the medial, distal tibia. The radiologist felt that it was nonaggressive appearing. She did not know exactly what it represented and was going to have the musculoskeletal radiologist review the CT in the morning with a pending reading. - Re-Assessments/Exams Free Text/Narrative Re-Assessment/Exam: 06/07/20 21:15: The CT scan of the left ankle showed a lytic lesion but it was on the other side of her pain. It also did not show any evidence of infectious process. Her blood tests were all reassuringly normal. I am unsure why she is having the pain. My plan will be to place her in an Paul wrap and on crutches and I'm going to ibuprofen 600 mg 3 times a day for the next 5-7 days and I will gi ve her a pack of hydrocodone for more severe pain. She is scheduled to follow-up with her primary provider tomorrow. The results from the muscle cells specialist radiologist will be back tomorrow morning and I have urged the patient to keep her appointment with her primary provider tomorrow. Precautions and reasons for return to the emergency department tonight were given to the patient while she was in the emergency department and repeat detailed in her discharge instructions. Departure - Departure Time of Disposition: 21:30 Disposition: Home, Self-Care 01 Condition: Good (Stable) Clinical Impression: Left lateral ankle pain, Lytic lesion of bone on x-ray - Discharge Information Instructions: Crutch Use, Adult, [id number], Joint Pain, [id number] Referrals: Orly Lepe NP [Primary Care Provider] - Forms: ED Department Discharge Additional Instructions: Your blood tests were all reassuringly normal except for a blood sugar that was 199. The x-ray of your left ankle appeared normal. The CT scan of your left ankle showed no evidence of infection or fluid in your joint. It did show a cyst type lesion in the tibia bone of your left lower leg along the inside of your ankle. I am unsure why you are having the pain in the outside of your left ankle. At this point, it does not appear to be an infection. There is no evidence of a fracture. You need to keep your scheduled appointment with your doctor tomorrow for recheck. You should take ibuprofen 600 mg by mouth 3 times a day for the next 5 days. Medication as prescribed for more severe pain (hydrocodone 5/325). Back to the emergency department for fever, redness or any signs of infection, vomiting, other joint pains or any other concerning signs or symptoms. Sepsis Event Note (ED) - Evaluation Sepsis Screening Result: No Definite Risk - Focused Exam Vital Signs: Vital Signs Temp Pulse Resp BP Pulse Ox 06/07/20 20:22 36.6 C 66 18 168/88 H 97 06/07/20 19:00 36.7 C 70 16 133/64 98 - My Orders Last 24 Hours: My Active Orders 06/07/20 19:23 Ankle Min 3V Lt [CR] Stat 06/07/20 20:00 Lower Extremity wo Cont Lt [CT] Stat 06/07/20 21:21 Paul Bandage [RC] ONETIME - Assessment/Plan Last 24 Hours: My Active Orders 06/07/20 19:23 Ankle Min 3V Lt [CR] Stat 06/07/20 20:00 Lower Extremity wo Cont Lt [CT] Stat 06/07/20 21:21 Paul Bandage [RC] ONETIME
== END 2020-06-07 22:12 | disposition home or self-care (01) ==
LOC: FB.ED 17:47
DX: M25.572 Pain in left ankle and joints of left foot (principal); M89.9 Disorder of bone, unspecified; I10 Essential (primary) hypertension; E11.9 Type 2 diabetes mellitus without complications; E78.00 Pure hypercholesterolemia, unspecified; E66.9 Obesity, unspecified; F17.210 Nicotine dependence, cigarettes, uncomplicated; Z68.36 Body mass index [BMI] 36.0-36.9, adult; Z88.0 Allergy status to penicillin; Z91.041 Radiographic dye allergy status; Z79.4 Long term (current) use of insulin; Z79.82 Long term (current) use of aspirin; Z79.899 Other long term (current) drug therapy
CPT/HCPCS: 36415; 73610; 73700; 80053; 85025; 86140; 99284; A9270

== ENCOUNTER 2020-08-27 15:59 | Emergency (ER) | payer MEDICARE, MEDICAID ==
[2020-08-27] MEDS ORDERED: 50% Dextrose in Water 50 ML Syringe IVPUSH ONE ×2 (16:18→17:21)
[2020-08-27] MEDS ORDERED: Sodium Chloride 0.9% 10 ML Syringe FLUSH PRN (17:10)
--- NOTE | 2020-08-27 18:21 | EDM.PDOC ---
ED HPI GENERAL MEDICAL PROBLEM - General Time Seen by Provider: 08/27/20 18:00 Source of Information: Reports: Patient History Limitations: Reports: No Limitations - History of Present Illness INITIAL COMMENTS - FREE TEXT/NARRATIVE: 60-year-old female who reports that since 3 AM she has "not been feeling well". She states she did not sleep very well last night and upon awakening she did eat breakfast but she felt somewhat nauseated. Her blood sugar at that time was 145 and she took her normal insulin dose at that time. She basically went back to bed and has basically been lying in bed not feeling well through the day. She tells me that she feels nauseated and she has body aches and has had no appetite and no energy. Her blood sugar was 95 at lunch and she states she took her insulin but instead of eating she went back to bed. When she woke up this afternoon about 3 or 3:30 she was really feeling well and feeling somewhat clammy and apparently she had a virtual visit with Dr. Becerra and he told her that she should come to the emergency department for evaluation. Apparently when she arrived here blood sugar was 68 and she seemed to be responding less than she normally would and have started an IV and gave her 1 amp of D50. Following this she seemed to perk up and was still reported that she felt bad all over. She specifically denied any chest pain or shortness of breath. She did report some nausea. I was busy seeing other patients at the time and apparently she had 2 large bowel movements just prior to my evaluation of her. She also had a decrement in her blood pressure back into the 70 range and she was given another amp of D50 IV. After that and I had also ordered blood tests and a chest x-ray at that time. She is awake and alert now. And she tells me that she feels better. She denies any chest pain. She is hungry and wants something to eat at this point. She apparently had been reporting 7/10 aching pain diffusely when she arrived but she now reports she has 0/10 level of pain. No fevers. No chills. No dysuria. No cough. No nasal congestion. No sore throat or trouble swallowing. [place] signs or symptoms. There are no other modifying factors. 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.) Generalized Pain Score (Numeric/FACES): 7 - Related Data Allergies Allergy/AdvReac Type Severity Reaction Status Date / Time Iodinated Contrast Media Allergy Hives Verified 06/07/20 19:11 [Iodinated Contrast- Oral and IV Dye] Penicillins Allergy Hives Verified 06/07/20 19:11 Home Meds: Home Meds Divalproex Sodium [Divalproex Sodium ER] 500 mg PO DAILY 12/09/18 [History] Doxepin [SINEquan] 10 - 30 mg PO Q6H PRN 12/09/18 [History] atorvaSTATin [Lipitor] 40 mg PO BEDTIME 12/09/18 [History] risperiDONE [Risperdal] 4 mg PO BEDTIME 12/09/18 [History] Aspirin [Halfprin] 81 mg PO DAILY 04/07/19 [History] Nitroglycerin 0.4 mg SL ASDIRECTED PRN 05/15/19 [History] Insulin Aspart [NovoLOG] 5 units SQ TID 02/29/20 [History] Insulin Detemir [Levemir] 20 unit SUBCUT DAILY 02/29/20 [History] Insulin Detemir [Levemir] 40 units SQ BEDTIME 02/29/20 [History] Terconazole [Terazol 7 Vaginal Crm] 1 appful DAILY 02/29/20 [History] Past Medical History Cardiovascular History: Reports: High Cholesterol, Hypertension Respiratory History: Reports: Asthma Other Respiratory History: chronic smoker since she was 14 years old. 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 Uses marijuana once in a while Endocrine/Metabolic History: Reports: Diabetes, Type II, Obesity/BMI 30+ - Past Surgical History Female Surgical History: Reports: Other (See Below) (Hysteroscopy) Musculoskeletal Surgical History: Reports: Carpal Tunnel (Right carpal tunnel surgery), ORIF, Other (See Below) Other Musculoskeletal Surgeries/Procedures:: left ankle, right hand and wrist sx. Social & Family History - Tobacco Use Smoking Status *Q: Current Every Day Smoker - Caffeine Use Caffeine Use: Reports: None Other Caffeine Use: iced coffee. - Alcohol Use Alcohol Use History: No - Living Situation & Occupation Occupation: Employed ED ROS GENERAL - Review of Systems Review Of Systems: See Below Constitutional: Reports: Malaise, Weakness, Fatigue, Decreased Appetite HEENT: Reports: No Symptoms Respiratory: Reports: No Symptoms Cardiovascular: Reports: No Symptoms GI/Abdominal: Reports: Nausea. Denies: Diarrhea, Vomiting : Reports: No Symptoms Musculoskeletal: Reports: No Symptoms Skin: Reports: No Symptoms Neurological: Reports: Weakness (Generalized) Psychiatric: Reports: No Symptoms Hematologic/Lymphatic: Reports: No Symptoms Immunologic: Reports: No Symptoms ED EXAM, GENERAL - Physical Exam Exam: See Below Exam Limited By: No Limitations General Appearance: Alert, No Apparent Distress, Obese Eye Exam: Bilateral Eye: EOMI, Normal Inspection Ears: Normal External Exam, Hearing Grossly Normal Ear Exam: Bilateral Ear: Auricle Normal Nose: Normal Inspection, Normal Mucosa, No Blood Throat/Mouth: Normal Inspection, Normal Oropharynx, Normal Voice, No Airway Compromise Head: Atraumatic, Normocephalic Neck: Normal Inspection, Supple, Non-Tender, Full Range of Motion Respiratory/Chest: No Respiratory Distress, Lungs Clear, Normal Breath Sounds, No Accessory Muscle Use, Chest Non-Tender Cardiovascular: Normal Peripheral Pulses, Regular Rate, Rhythm, No JVD Peripheral Pulses: 2+: Radial (L), Radial (R) GI/Abdominal: Normal Bowel Sounds, Soft, Non-Tender, No Mass, Other (Somewhat protuberant.) Back Exam: Normal Inspection (Blood protuberant.), Full Range of Motion Extremities: Normal Inspection, Normal Range of Motion, Non-Tender, No Pedal Edema, Normal Capillary Refill Neurological: Alert, Oriented, CN II-XII Intact, Normal Cognition, No Motor/Sensory Deficits Psychiatric: Flat Affect Skin Exam: Warm, Dry, Intact, Normal Color, No Rash Course - Vital Signs Last Recorded V/S: Last Vital Signs Temp 36.8 C 08/27/20 19:45 Pulse 73 08/27/20 19:45 Resp 22 H 08/27/20 19:45 BP 150/83 H 08/27/20 19:45 Pulse Ox 95 08/27/20 19:45 - Orders/Labs/Meds Orders: Active Orders 24 hr Category Date Time Status Chest 2V [CR] Stat Exams 08/27/20 17:16 Taken Peripheral IV Insertion Adult [OM.PC] Routine Oth 08/27/20 17:10 Ordered EKG 12 Lead [EK] Routine Ther 08/27/20 17:10 Stop Req Labs: Laboratory Tests 08/27/20 08/27/20 08/27/20 Range/Units 16:16 17:19 17:35 WBC 10.9 (4.5-12.0) X10-3/uL RBC 4.23 (3.23-5.20) x10(6)uL Hgb 13.3 (11.5-15.5) g/dL Hct 38.8 (30.0-51.3) % MCV 91.8 (80-96) fL MCH 31.5 (27.7-33.6) pg MCHC 34.3 (32.2-35.4) g/dL RDW 12.0 (11.5-15.5) % Plt Count 255 (125-369) X10(3)uL MPV 9.5 (7.4-10.4) fL Neut % (Auto) 56.8 (46-82) % Lymph % (Auto) 37.9 H (13-37) % [place] % (Auto) 3.9 L (4-12) % Eos % (Auto) 1 (1.0-5.0) % Baso % (Auto) 1 (0-2) % Neut # (Auto) 6.2 (1.6-8.3) # Lymph # (Auto) 4.1 (0.6-5.0) # [place] # (Auto) 0.4 (0.0-1.3) # Eos # (Auto) 0.1 (0.0-0.8) # Baso # (Auto) 0.1 (0.0-0.2) # Sodium (135-145) mmol/L Potassium (3.5-5.3) mmol/L Chloride (100-110) mmol/L Carbon Dioxide (21-32) mmol/L BUN (7-18) mg/dL Creatinine (0.55-1.02) mg/dL Est Cr Clr Drug Dosing Estimated GFR (MDRD) (>60) BUN/Creatinine Ratio (9-20) Glucose (80-116) mg/dL POC Glucose 68 L 91 (74-100) mg/dL Calcium (8.6-10.2) mg/dL Magnesium (1.8-2.5) mg/dL Total Bilirubin (0.1-1.3) mg/dL AST (5-25) IU/L ALT (12-36) U/L Alkaline Phosphatase (56-112) IU/L Troponin I (4.0-60.3) pg/mL Total Protein (6.0-8.0) g/dL Albumin (3.5-5.2) g/dL Globulin g/dL Albumin/Globulin Ratio Urine Color (YELLOW) Urine Appearance (CLEAR) Urine pH (5.0-6.5) Ur Specific Stephen (1.010-1.025) Urine Protein (NEGATIVE) mg/dL Urine Glucose (UA) (NORMAL) mg/dL Urine Ketones (NEGATIVE) mg/dL Urine Occult Blood (NEGATIVE) Urine Nitrite (NEGATIVE) Urine Bilirubin (NEGATIVE) Urine Urobilinogen (NEGATIVE) mg/dL Ur Leukocyte Esterase (NEGATIVE) Urine RBC (0-5) Urine WBC (0-5) Ur Squamous Epith Cells (NS,R,O) Urine Bacteria (NS) 08/27/20 08/27/20 08/27/20 Range/Units 17:35 17:35 19:10 WBC (4.5-12.0) X10-3/uL RBC (3.23-5.20) x10(6)uL Hgb (11.5-15.5) g/dL Hct (30.0-51.3) % MCV (80-96) fL MCH (27.7-33.6) pg MCHC (32.2-35.4) g/dL RDW (11.5-15.5) % Plt Count (125-369) X10(3)uL MPV (7.4-10.4) fL Neut % (Auto) (46-82) % Lymph % (Auto) (13-37) % [place] % (Auto) (4-12) % Eos % (Auto) (1.0-5.0) % Baso % (Auto) (0-2) % Neut # (Auto) (1.6-8.3) # Lymph # (Auto) (0.6-5.0) # [place] # (Auto) (0.0-1.3) # Eos # (Auto) (0.0-0.8) # Baso # (Auto) (0.0-0.2) # Sodium 141 (135-145) mmol/L Potassium 3.8 (3.5-5.3) mmol/L Chloride 105 (100-110) mmol/L Carbon Dioxide 26 (21-32) mmol/L BUN 11 (7-18) mg/dL Creatinine 0.7 (0.55-1.02) mg/dL Est Cr Clr Drug Dosing TNP Estimated GFR (MDRD) > 60 (>60) BUN/Creatinine Ratio 15.7 (9-20) Glucose 96 D (80-116) mg/dL POC Glucose (74-100) mg/dL Calcium 9.5 (8.6-10.2) mg/dL Magnesium 2.1 (1.8-2.5) mg/dL Total Bilirubin 0.3 (0.1-1.3) mg/dL AST 15 D (5-25) IU/L ALT 24 D (12-36) U/L Alkaline Phosphatase 92 (56-112) IU/L Troponin I 13.4 (4.0-60.3) pg/mL Total Protein 7.8 (6.0-8.0) g/dL Albumin 3.3 L (3.5-5.2) g/dL Globulin 4.5 g/dL Albumin/Globulin Ratio 0.7 Urine Color Yellow (YELLOW) Urine Appearance Clear (CLEAR) Urine pH 5.0 (5.0-6.5) Ur Specific Stephen 1.020 (1.010-1.025) Urine Protein Trace (NEGATIVE) mg/dL Urine Glucose (UA) 250 H (NORMAL) mg/dL Urine Ketones 15 H (NEGATIVE) mg/dL Urine Occult Blood Negative (NEGATIVE) Urine Nitrite Negative (NEGATIVE) Urine Bilirubin Negative (NEGATIVE) Urine Urobilinogen Normal (NEGATIVE) mg/dL Ur Leukocyte Esterase Small H (NEGATIVE) Urine RBC 0-5 (0-5) Urine WBC 0-5 (0-5) Ur Squamous Epith Cells Occasional (NS,R,O) Urine Bacteria Rare H (NS) Meds: Medications Discontinued Medications Generic Name Dose Route Start Last Admin Trade Name Qi PRN Reason Stop Dose Admin Dextrose/Water 50 ml 08/27/20 16:18 08/27/20 16:24 Dextrose 50% In Water IVPUSH 08/27/20 16:19 50 ml ONETIME ONE Administration Dextrose/Water 50 ml 08/27/20 17:21 08/27/20 17:51 Dextrose 50% In Water IVPUSH 08/27/20 17:22 25 ml ONETIME ONE Administration Sodium Chloride 10 ml 08/27/20 17:10 Saline Flush FLUSH ASDIRECTED PRN Keep Vein Open - Radiology Interpretation Free Text/Narrative:: Chest x-ray showed no acute abnormality. - Re-Assessments/Exams Free Text/Narrative Re-Assessment/Exam: 08/27/20 19:35: Patient's blood tests are reassuring now. Her chest x-ray is normal. A urine test just came back and it is normal as well. She did have some hyperglycemia and I gave her 2 Amps of D50 over time and she eventually was able to eat and tolerate a diet well. She had 2 very large bowel movements while here and she seemed to markedly improve after this. I am unsure why she is having the malaise since 3 AM but her symptoms seem to have resolved by now. She has normal vital signs and she has ambulated well about the emergency department without any problems. The plan will be to discharge the patient and she is to make sure that she eats after taking her insulin or she should not take her insulin until she is able to eat. There was some education that was given patient by the nursing staff and myself prior to her discharge. I will give her day off of work. Precautions and reasons for return to the emergency department discussed with the patient while she was in the emergency department and were detailed in the patient's discharge instructions. Departure - Departure Time of Disposition: 19:45 Disposition: Home, Self-Care 01 Condition: Good (Improved) Clinical Impression: Hypoglycemic episode in patient with diabetes mellitus, Malaise - Discharge Information Instructions: Type 2 Diabetes Mellitus, Self Care, Adult, [id number], Hypoglycemia, [id number] Referrals: Orly Lepe NP [Primary Care Provider] - Forms: ED Return to Work/School Form Additional Instructions: Your blood tests were all reassuringly normal except for your blood sugar being low. You should make sure that you eat after you take your insulin in the future or you should not take your insulin until you are able to eat. Your chest x-ray and urine tests were normal as well. I am unsure why you have not been feeling well but it does not appear to be anything of a serious nature. Your blood sugars being low were what caused most of your symptoms today, I feel. And I t hink that was because you took your insulin and did not eat. Increase your fluid intake. Check your blood sugars tonight more frequently. Back to the emergency department for trouble breathing, unrelenting vomiting, fever, severe weakness or any other concerning sign or symptom. Sepsis Event Note (ED) - Focused Exam Vital Signs: Vital Signs Temp Pulse Resp BP Pulse Ox 08/27/20 19:45 36.8 C 73 22 H 150/83 H 95 08/27/20 16:10 36.2 C 76 16 141/97 H 95 - My Orders Last 24 Hours: My Active Orders 08/27/20 17:10 Peripheral IV Insertion Adult [OM.PC] Routine EKG 12 Lead [EK] Routine 08/27/20 17:16 Chest 2V [CR] Stat - Assessment/Plan Last 24 Hours: My Active Orders 08/27/20 17:10 Peripheral IV Insertion Adult [OM.PC] Routine EKG 12 Lead [EK] Routine 08/27/20 17:16 Chest 2V [CR] Stat
--- NOTE | 2020-08-27 22:55 | CR ---
CHEST PA AND LATERAL INDICATION: Weakness. PA and lateral views of the chest were obtained 08/27/2020 and compared with 02/29/2020 and 11/15/2019 again revealing evidence of exogenous obesity. Bridging hyperostotic changes are noted with a flowing appearance anteriorly along the vertebral bodies of the mid to lower thoracic spine raising question of DISH. The heart did not appear enlarged. The aorta is minimally tortuous with calcification in the arch. An active infiltrate or effusion was not identified. Degenerative changes noted at the AC joints. IMPRESSION: No acute process. MTDD
== END 2020-08-27 19:53 | disposition home or self-care (01) ==
LOC: FB.ED 15:59
DX: E11.649 Type 2 diabetes mellitus with hypoglycemia without coma (principal); I10 Essential (primary) hypertension; E78.00 Pure hypercholesterolemia, unspecified; E66.9 Obesity, unspecified; J45.909 Unspecified asthma, uncomplicated; F17.200 Nicotine dependence, unspecified, uncomplicated; Z88.0 Allergy status to penicillin; Z91.041 Radiographic dye allergy status; Z79.4 Long term (current) use of insulin; Z68.36 Body mass index [BMI] 36.0-36.9, adult; Z79.82 Long term (current) use of aspirin; Z79.899 Other long term (current) drug therapy
CPT/HCPCS: 36415; 71046; 80053; 81001; 82962; 83735; 84484; 85025; 96374; 96376; 99285-25

== ENCOUNTER 2021-01-04 04:44 | Emergency (ER) | payer MEDICARE, MEDICAID | END 2021-01-04 05:15 | disposition left against medical advice (07) | LOC: FB.ED 04:44 | DX: Z53.21 Procedure and treatment not carried out due to patient leaving prior to being seen by health care provider (principal) ==

== ENCOUNTER 2021-01-18 19:57 | Emergency (ER) | payer MEDICARE, MEDICAID ==
[2021-01-18] MEDS ORDERED: Sulfamethoxazole/Trimethoprim 800-160 MG Tab PO ONE (20:32)
--- NOTE | 2021-01-18 20:39 | EDM.PDOC ---
ED HPI GENERAL MEDICAL PROBLEM - General Stated Complaint: CUT FINGER Time Seen by Provider: 01/18/21 20:10 Source of Information: Reports: Patient History Limitations: Reports: No Limitations - History of Present Illness INITIAL COMMENTS - FREE TEXT/NARRATIVE: c/o finger lac last Td 1y ago had a new sharp knife, prying off a lid, cut her L middle finger - Related Data Allergies Allergy/AdvReac Type Severity Reaction Status Date / Time Iodinated Contrast Media Allergy Hives Verified 06/07/20 19:11 [Iodinated Contrast- Oral and IV Dye] Penicillins Allergy Hives Verified 06/07/20 19:11 Home Meds: Home Meds Divalproex Sodium [Divalproex Sodium ER] 500 mg PO DAILY 12/09/18 [History] Doxepin [SINEquan] 10 - 30 mg PO Q6H PRN 12/09/18 [History] atorvaSTATin [Lipitor] 40 mg PO BEDTIME 12/09/18 [History] risperiDONE [Risperdal] 4 mg PO BEDTIME 12/09/18 [History] Aspirin [Halfprin] 81 mg PO DAILY 04/07/19 [History] Nitroglycerin 0.4 mg SL ASDIRECTED PRN 05/15/19 [History] Insulin Aspart [NovoLOG] 5 units SQ TID 02/29/20 [History] Insulin Detemir [Levemir] 20 unit SUBCUT DAILY 02/29/20 [History] Insulin Detemir [Levemir] 40 units SQ BEDTIME 02/29/20 [History] Terconazole [Terazol 7 Vaginal Crm] 1 appful DAILY 02/29/20 [History] Sulfamethoxazole/Trimethoprim [Sulfamethoxazole-Tmp Ds Tablet] 1 each PO BID #5 tablet 01/18/21 [Rx] Past Medical History - Past Health History Medical/Surgical History: Denies Medical/Surgical History Cardiovascular History: Reports: High Cholesterol, Hypertension Respiratory History: Reports: Asthma Other Respiratory History: chronic smoker since she was 14 years old. 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 Endocrine/Metabolic History: Reports: Diabetes, Type II, Obesity/BMI 30+ Dermatologic History: Reports: Other (See Below) Other Dermatologic History: allergic dermatitis - Past Surgical History Female Surgical History: Reports: Other (See Below) Musculoskeletal Surgical History: Reports: Carpal Tunnel, ORIF, Other (See Below) Other Musculoskeletal Surgeries/Procedures:: left ankle, right hand and wrist sx. Social & Family History - Family History Family Medical History: No Pertinent Family History - Caffeine Use Caffeine Use: Reports: Coffee, Soda Other Caffeine Use: iced coffee. - Living Situation & Occupation Occupation: Employed ED ROS GENERAL - Review of Systems Review Of Systems: See Below Constitutional: Reports: No Symptoms HEENT: Reports: No Symptoms Respiratory: Reports: No Symptoms Cardiovascular: Reports: No Symptoms Endocrine: Reports: No Symptoms GI/Abdominal: Reports: No Symptoms : Reports: No Symptoms Musculoskeletal: Reports: No Symptoms Skin: Reports: Wound Neurological: Reports: No Symptoms Psychiatric: Reports: No Symptoms Hematologic/Lymphatic: Reports: No Symptoms Immunologic: Reports: No Symptoms ED EXAM, SKIN/RASH Exam: See Below Exam Limited By: No Limitations General Appearance: Alert, WD/WN, No Apparent Distress GI/Abdominal: Soft Neurological: Alert, Oriented, CN II-XII Intact, Normal Cognition, Normal Gait, No Motor/Sensory Deficits Skin: Other (L middle finger with 1.5 cm lac over PIP dorsally, just into fat, no exposure or injury to tendon or joint, m/s intact, FROM, 1% lido with epi local with #25 needle, 3-0 Ethilon x 3 used for closure after cleaning x 12 with gauze and NS, no f.b.'s, good apposition of margins, tolerated well) Course - Orders/Labs/Meds Orders: Active Orders 24 hr Category Date Time Status Sulfamethoxazole/Trimethoprim [Septra DS] Med 01/18/21 20:32 Once 1 tab PO ONETIME ONE Meds: Medications Discontinued Medications Generic Name Dose Route Start Last Admin Trade Name Freq PRN Reason Stop Dose Admin Trimethoprim/Sulfamethoxazole 1 tab 01/18/21 20:32 Septra Ds PO 01/18/21 20:33 ONETIME ONE Departure - Departure Time of Disposition: 20:33 Disposition: Home, Self-Care 01 Condition: Good Clinical Impression: Laceration of finger Qualifiers: Encounter type: initial encounter Finger: middle finger Damage to nail status: without damage Foreign body presence: without foreign body Laterality: left Qualified Code(s): S61.213A - Laceration without foreign body of left middle finger without damage to nail, initial encounter - Discharge Information *PRESCRIPTION DRUG MONITORING PROGRAM REVIEWED*: Not Applicable *COPY OF PRESCRIPTION DRUG MONITORING REPORT IN PATIENT YANN: Not Applicable Prescriptions: Sulfamethoxazole/Trimethoprim [Sulfamethoxazole-Tmp Ds Tablet] 1 each PO BID #5 tablet Instructions: Laceration Care, Adult Referrals: Skip Becerra MD [Primary Care Provider] - Additional Instructions: Keep clean and dry and covered with 2 Bandaids. Avoid bending the finger. To decrease the risk of infection, take sulfamethoxazole/trimethoprim DS 1 tab 2 times a day for 6 doses. See a physician the same day for any increase in redness, swelling, pain, warmth, fever or drainage. See your physician in 5 days to remove sutures. - My Orders Last 24 Hours: My Active Orders 01/18/21 20:32 Sulfamethoxazole/Trimethoprim [Septra DS] 1 tab PO ONETIME ONE - Assessment/Plan Last 24 Hours: My Active Orders 01/18/21 20:32 Sulfamethoxazole/Trimethoprim [Septra DS] 1 tab PO ONETIME ONE
== END 2021-01-18 20:48 | disposition home or self-care (01) ==
LOC: FB.ED 19:57
DX: S61.213A Laceration without foreign body of left middle finger without damage to nail, initial encounter (principal); E78.00 Pure hypercholesterolemia, unspecified; I10 Essential (primary) hypertension; J45.909 Unspecified asthma, uncomplicated; F17.200 Nicotine dependence, unspecified, uncomplicated; E11.9 Type 2 diabetes mellitus without complications; E66.9 Obesity, unspecified; Z91.041 Radiographic dye allergy status; Z88.0 Allergy status to penicillin; Z79.82 Long term (current) use of aspirin; Z79.899 Other long term (current) drug therapy; Z79.4 Long term (current) use of insulin; W26.0XXA Contact with knife, initial encounter
CPT/HCPCS: 12001; 99282-25; A9270-GY

== ENCOUNTER 2021-03-02 14:42 | Emergency (ER) | payer MEDICARE, MEDICAID ==
[2021-03-02] MEDS ORDERED: Azithromycin 250 MG Tab PO ONE (14:43)
[2021-03-02] MEDS ORDERED: 50% Dextrose in Water 50 ML Syringe IVPUSH PRN (14:51)
[2021-03-02] MEDS ORDERED: Sodium Chloride 0.9% 1,000 ML IV ONE (14:51)
[2021-03-02] MEDS ORDERED: Glucagon,Human Recombinant 1 MG Vial IM PRN (14:51)
[2021-03-02] MEDS ORDERED: Insulin Regular, Human 100 Units/ML 3 ML Vial IV ONE (14:51)
[2021-03-02] MEDS ORDERED: Ondansetron 4 MG/2 ML SDV IVPUSH ONE (14:52)
--- NOTE | 2021-03-02 15:13 | EDM.PDOC ---
ED HPI GENERAL MEDICAL PROBLEM - General Stated Complaint: WEAKNESS/DIZZY Time Seen by Provider: 03/02/21 14:42 Source of Information: Reports: Patient, EMS History Limitations: Reports: No Limitations - History of Present Illness INITIAL COMMENTS - FREE TEXT/NARRATIVE: c/o n/v x 3d no pain, no f/c/d, no cough, no rhinorrhea BS 350 per EMS with BP 205/105 has been taking meds including insulin no prior illness pt not sure why here BS has been high last hosp in [place] 1-2y ago, pt not sure when - Related Data Allergies Allergy/AdvReac Type Severity Reaction Status Date / Time Iodinated Contrast Media Allergy Hives Verified 03/02/21 14:50 [Iodinated Contrast- Oral and IV Dye] Penicillins Allergy Hives Verified 03/02/21 14:50 Home Meds: Home Meds Divalproex Sodium [Divalproex Sodium ER] 500 mg PO DAILY 12/09/18 [History] Doxepin [SINEquan] 10 - 30 mg PO Q6H PRN 12/09/18 [History] atorvaSTATin [Lipitor] 40 mg PO BEDTIME 12/09/18 [History] risperiDONE [Risperdal] 4 mg PO BEDTIME 12/09/18 [History] Aspirin [Halfprin] 81 mg PO DAILY 04/07/19 [History] Nitroglycerin 0.4 mg SL ASDIRECTED PRN 05/15/19 [History] Insulin Aspart [NovoLOG] 5 units SQ TID 02/29/20 [History] Insulin Detemir [Levemir] 20 unit SUBCUT DAILY 02/29/20 [History] Insulin Detemir [Levemir] 40 units SQ BEDTIME 02/29/20 [History] Terconazole [Terazol 7 Vaginal Crm] 1 appful DAILY 02/29/20 [History] Sulfamethoxazole/Trimethoprim [Sulfamethoxazole-Tmp Ds Tablet] 1 each PO BID #5 tablet 01/18/21 [Rx] Past Medical History - Past Health History Medical/Surgical History: Denies Medical/Surgical History Cardiovascular History: Reports: High Cholesterol, Hypertension Respiratory History: Reports: Asthma Other Respiratory History: chronic smoker since she was 14 years old. Gastrointestinal History: Reports: GERD OUTSOLE [employer] MACHINE History: Reports: Musculoskeletal History: Reports: Fracture Other Musculoskeletal History: L ankle fx Psychiatric History: Reports: Addiction, Schizophrenia Other Psychiatric History: Uses marijuana, meth, cocaine and whatever else she can get every once in awhile when available. Endocrine/Metabolic History: Reports: Diabetes, Type II, Obesity/BMI 30+ Dermatologic History: Reports: Other (See Below) Other Dermatologic History: allergic dermatitis - Past Surgical History Female Surgical History: Reports: Other (See Below) Musculoskeletal Surgical History: Reports: Carpal Tunnel, ORIF, Other (See Below) Other Musculoskeletal Surgeries/Procedures:: left ankle, right hand and wrist sx. Social & Family History - Family History Family Medical History: No Pertinent Family History - Caffeine Use Caffeine Use: Reports: Coffee, Soda Other Caffeine Use: iced coffee. - Living Situation & Occupation Occupation: Employed ED ROS GENERAL - Review of Systems Review Of Systems: See Below Constitutional: Reports: No Symptoms, Weakness, Decreased Appetite. Denies: Fever, Chills, Night Sweats, Diaphoresis HEENT: Reports: No Symptoms Respiratory: Reports: No Symptoms. Denies: Shortness of Breath Cardiovascular: Reports: No Symptoms. Denies: Chest Pain Endocrine: Reports: No Symptoms GI/Abdominal: Reports: Nausea, Vomiting. Denies: Abdominal Pain : Reports: No Symptoms Musculoskeletal: Reports: No Symptoms Skin: Reports: No Symptoms Neurological: Reports: No Symptoms Psychiatric: Reports: No Symptoms Hematologic/Lymphatic: Reports: No Symptoms Immunologic: Reports: No Symptoms ED EXAM GENERAL NO PERIP PULSE - Physical Exam Exam: See Below Exam Limited By: No Limitations General Appearance: Alert, WD/WN, No Apparent Distress, Other (alert, pleasant, nonill, normal speech, good eye contact, a little weak) Ears: Hearing Grossly Normal Nose: Normal Inspection Head: Atraumatic, Normocephalic Neck: Normal Inspection, Supple, Non-Tender, Full Range of Motion. No: Lymphadenopathy (R), Lymphadenopathy (L) Respiratory/Chest: No Respiratory Distress, Lungs Clear, Normal Breath Sounds, Chest Non-Tender, Other (no cough observed) Cardiovascular: Regular Rate, Rhythm, No Edema, No Murmur GI/Abdominal: Soft, Non-Tender, No Distention Back Exam: Normal Inspection, Full Range of Motion Extremities: Normal Inspection, Normal Range of Motion, Non-Tender, No Pedal Edema Neurological: Alert, Oriented, CN II-XII Intact, Normal Cognition, No Motor/Sensory Deficits Psychiatric: Normal Affect, Normal Mood Skin Exam: Warm, Dry, Intact, Normal Color, No Rash, Other (turgor wnl, no tenting) Lymphatic: No Adenopathy Course - Vital Signs Last Recorded V/S: Last Vital Signs Temp 36.4 C 03/02/21 14:42 Pulse 68 03/02/21 14:42 Resp 17 03/02/21 14:42 BP 160/81 H 03/02/21 14:42 Pulse Ox 98 03/02/21 14:42 - Orders/Labs/Meds Orders: Active Orders 24 hr Category Date Time Status EKG Documentation Completion [RC] ASDIRECTED Care 03/02/21 14:51 Active Chest 2V [CR] Stat Exams 03/02/21 15:47 Taken Dextrose 50% in Water Med 03/02/21 14:51 Active 50 ml IVPUSH ASDIRECTED PRN Glucagon,Human Recombinant [GlucaGen] Med 03/02/21 14:51 Active 1 mg IM ASDIRECTED PRN EKG 12 Lead [EK] Routine Ther 03/02/21 14:51 Ordered Medication Orders Dextrose/Water (50% Dextrose In Water 50 Ml Syringe) 50 ml IVPUSH ASDIRECTED PRN PRN Reason: Hypoglycemia Glucagon (Glucagon,Human Recombinant 1 Mg Vial) 1 mg IM ASDIRECTED PRN PRN Reason: Hypoglycemia Labs: Laboratory Tests 03/02/21 03/02/21 03/02/21 Range/Units 15:00 15:00 15:00 WBC 12.6 H (3.0-10.3) x10-3/uL RBC 4.91 (3.60-5.20) x10(6)uL Hgb 15.1 (11.4-15.5) g/dL Hct 46.3 (34.2-48.2) % MCV 94.3 (76.7-100.5) fL MCH 30.8 (23.9-33.9) pg MCHC 32.6 (31.9-34.8) g/dL RDW 13.4 (12.3-16.5) % Plt Count 237 (151-488) x10(3)uL MPV 10.1 (7.1-12.4) fL Neut % (Auto) 64.7 (30.8-76.2) % Lymph % (Auto) 30.0 (18.4-52.1) % [place] % (Auto) 3.7 L (4.4-15.7) % Eos % (Auto) 0.3 L (0.6-8.1) % Baso % (Auto) 1.3 (0.2-1.5) % Neut # (Auto) 8.1 H (1.5-6.3) x10-3/uL Lymph # (Auto) 3.8 (1.0-4.4) x10-3/uL [place] # (Auto) 0.5 (0.3-1.0) x10-3/uL Eos # (Auto) 0.0 (0.0-0.8) x10-3/uL Baso # (Auto) 0.2 H (0.0-0.1) x10-3/uL Sodium 141 (135-145) mmol/L Potassium 4.3 (3.5-5.3) mmol/L Chloride 103 (100-110) mmol/L Carbon Dioxide 29 (21-32) mmol/L BUN 18 (7-18) mg/dL Creatinine 1.0 (0.55-1.02) mg/dL Est Cr Clr Drug Dosing TNP Estimated GFR (MDRD) > 60 (>60) BUN/Creatinine Ratio 18.0 (9-20) Glucose 362 H D (80-116) mg/dL POC Glucose (80-116) mg/dL Calcium 9.6 (8.6-10.2) mg/dL Total Bilirubin 0.5 (0.1-1.3) mg/dL AST 13 D (5-25) IU/L ALT 28 D (12-36) U/L Alkaline Phosphatase 91 (56-112) IU/L Troponin I (4.0-60.3) pg/mL C-Reactive Protein 1.0 H (0.5-0.9) mg/dL Total Protein 6.8 (6.0-8.0) g/dL Albumin 3.3 L (3.5-5.2) g/dL Globulin 3.5 g/dL Albumin/Globulin Ratio 0.9 Urine Color (YELLOW) Urine Appearance (CLEAR) Urine pH (5.0-6.5) Ur Specific [place] (1.010-1.025) Urine Protein (NEGATIVE) mg/dL Urine Glucose (UA) (NORMAL) mg/dL Urine Ketones (NEGATIVE) mg/dL Urine Occult Blood (NEGATIVE) Urine Nitrite (NEGATIVE) Urine Bilirubin (NEGATIVE) Urine Urobilinogen (NEGATIVE) mg/dL Ur Leukocyte Esterase (NEGATIVE) Urine RBC (0-5) Urine WBC (0-5) Ur Squamous Epith Cells (NS,R,O) Urine Bacteria (NS) 03/02/21 03/02/21 03/02/21 Range/Units 15:00 15:34 16:20 WBC (3.0-10.3) x10-3/uL RBC (3.60-5.20) x10(6)uL Hgb (11.4-15.5) g/dL Hct (34.2-48.2) % MCV (76.7-100.5) fL MCH (23.9-33.9) pg MCHC (31.9-34.8) g/dL RDW (12.3-16.5) % Plt Count (151-488) x10(3)uL MPV (7.1-12.4) fL Neut % (Auto) (30.8-76.2) % Lymph % (Auto) (18.4-52.1) % [place] % (Auto) (4.4-15.7) % Eos % (Auto) (0.6-8.1) % Baso % (Auto) (0.2-1.5) % Neut # (Auto) (1.5-6.3) x10-3/uL Lymph # (Auto) (1.0-4.4) x10-3/uL [place] # (Auto) (0.3-1.0) x10-3/uL Eos # (Auto) (0.0-0.8) x10-3/uL Baso # (Auto) (0.0-0.1) x10-3/uL Sodium (135-145) mmol/L Potassium (3.5-5.3) mmol/L Chloride (100-110) mmol/L Carbon Dioxide (21-32) mmol/L BUN (7-18) mg/dL Creatinine (0.55-1.02) mg/dL Est Cr Clr Drug Dosing Estimated GFR (MDRD) (>60) BUN/Creatinine Ratio (9-20) Glucose (80-116) mg/dL POC Glucose 315 H (80-116) mg/dL Calcium (8.6-10.2) mg/dL Total Bilirubin (0.1-1.3) mg/dL AST (5-25) IU/L ALT (12-36) U/L Alkaline Phosphatase (56-112) IU/L Troponin I 15.4 (4.0-60.3) pg/mL C-Reactive Protein (0.5-0.9) mg/dL Total Protein (6.0-8.0) g/dL Albumin (3.5-5.2) g/dL Globulin g/dL Albumin/Globulin Ratio Urine Color Yellow (YELLOW) Urine Appearance Clear (CLEAR) Urine pH 5.0 (5.0-6.5) Ur Specific [place] 1.020 (1.010-1.025) Urine Protein Negative (NEGATIVE) mg/dL Urine Glucose (UA) >1000 H (NORMAL) mg/dL Urine Ketones 15 H (NEGATIVE) mg/dL Urine Occult Blood Negative (NEGATIVE) Urine Nitrite Negative (NEGATIVE) Urine Bilirubin Negative (NEGATIVE) Urine Urobilinogen Normal (NEGATIVE) mg/dL Ur Leukocyte Esterase Negative (NEGATIVE) Urine RBC 0-5 (0-5) Urine WBC 0-5 (0-5) Ur Squamous Epith Cells Few H (NS,R,O) Urine Bacteria Rare H (NS) 03/02/21 Range/Units 16:42 WBC (3.0-10.3) x10-3/uL RBC (3.60-5.20) x10(6)uL Hgb (11.4-15.5) g/dL Hct (34.2-48.2) % MCV (76.7-100.5) fL MCH (23.9-33.9) pg MCHC (31.9-34.8) g/dL RDW (12.3-16.5) % Plt Count (151-488) x10(3)uL MPV (7.1-12.4) fL Neut % (Auto) (30.8-76.2) % Lymph % (Auto) (18.4-52.1) % [place] % (Auto) (4.4-15.7) % Eos % (Auto) (0.6-8.1) % Baso % (Auto) (0.2-1.5) % Neut # (Auto) (1.5-6.3) x10-3/uL Lymph # (Auto) (1.0-4.4) x10-3/uL [place] # (Auto) (0.3-1.0) x10-3/uL Eos # (Auto) (0.0-0.8) x10-3/uL Baso # (Auto) (0.0-0.1) x10-3/uL Sodium (135-145) mmol/L Potassium (3.5-5.3) mmol/L Chloride (100-110) mmol/L Carbon Dioxide (21-32) mmol/L BUN (7-18) mg/dL Creatinine (0.55-1.02) mg/dL Est Cr Clr Drug Dosing Estimated GFR (MDRD) (>60) BUN/Creatinine Ratio (9-20) Glucose (80-116) mg/dL POC Glucose 178 H D (80-116) mg/dL Calcium (8.6-10.2) mg/dL Total Bilirubin (0.1-1.3) mg/dL AST (5-25) IU/L ALT (12-36) U/L Alkaline Phosphatase (56-112) IU/L Troponin I (4.0-60.3) pg/mL C-Reactive Protein (0.5-0.9) mg/dL Total Protein (6.0-8.0) g/dL Albumin (3.5-5.2) g/dL Globulin g/dL Albumin/Globulin Ratio Urine Color (YELLOW) Urine Appearance (CLEAR) Urine pH (5.0-6.5) Ur Specific [place] (1.010-1.025) Urine Protein (NEGATIVE) mg/dL Urine Glucose (UA) (NORMAL) mg/dL Urine Ketones (NEGATIVE) mg/dL Urine Occult Blood (NEGATIVE) Urine Nitrite (NEGATIVE) Urine Bilirubin (NEGATIVE) Urine Urobilinogen (NEGATIVE) mg/dL Ur Leukocyte Esterase (NEGATIVE) Urine RBC (0-5) Urine WBC (0-5) Ur Squamous Epith Cells (NS,R,O) Urine Bacteria (NS) Meds: Medications Generic Name Dose Route Start Last Admin Trade Name Freq PRN Reason Stop Dose Admin Dextrose/Water 50 ml 03/02/21 14:51 50% Dextrose In Water 50 Ml Syringe IVPUSH ASDIRECTED PRN Hypoglycemia Glucagon 1 mg 03/02/21 14:51 Glucagon,Human Recombinant 1 Mg Vial IM ASDIRECTED PRN Hypoglycemia Discontinued Medications Generic Name Dose Route Start Last Admin Trade Name Qi PRN Reason Stop Dose Admin Sodium Chloride 1,000 mls @ 999 mls/hr 03/02/21 14:51 03/02/21 15:08 Normal Saline IV 03/02/21 15:51 999 mls/hr .BOLUS ONE Administration Insulin Human Regular 10 unit 03/02/21 14:51 03/02/21 15:32 Insulin Regular, Human 100 Units/Ml 3 Ml Vial IV 03/02/21 14:52 10 units ONETIME ONE Administration Ondansetron HCl 4 mg 03/02/21 14:52 Ondansetron 4 Mg/2 Ml Sdv IVPUSH 03/02/21 14:53 ONETIME ONE - Re-Assessments/Exams Free Text/Narrative Re-Assessment/Exam: 03/02/21 17:12 BS 315 down to 178 after 10u insulin IV pt reports she takes Levemir 50u qAM and 60u qPM also on Novolog 35u TID CxR 2v neg on prelim ED view N gone after Zofran here labs neg except WBC 12.6 which is unusual for pt in context of inc'd glu/WBC, must consider possible infection, will give Z-Artem did have COVID 2m ago CRP 1.0, altho this appears to be baseline EKG is unchanged from previous, there are NSSTs that are actually improved c/w 05-28-20 pt agrees to instructions, wants to go home lives alone, will f/u with PCP Orly Departure - Departure Time of Disposition: 17:07 Disposition: Home, Self-Care 01 Condition: Good Clinical Impression: Hyperglycemia, Leukocytosis, Mild dehydration, Ketonuria - Discharge Information *PRESCRIPTION DRUG MONITORING PROGRAM REVIEWED*: Not Applicable *COPY OF PRESCRIPTION DRUG MONITORING REPORT IN PATIENT YANN: Not Applicable Instructions: Hyperglycemia, Acute Bronchitis, Adult Referrals: Orly Lepe, YURI [Primary Care Provider] - Additional Instructions: Your chest x-ray looks okay. However, you are running a little high on your white blood cells, suggesting the possibility of an infection. As a precaution, take azithromycin 250 mg 2 tabs today, then 1 tab daily for 4 days. Continue your medications as prescribed. Continue to monitor your glucose. See your doctor in 2-3 days for further evaluation and recommendations. Sepsis Event Note (ED) - Evaluation Sepsis Screening Result: No Definite Risk - Focused Exam Vital Signs: Vital Signs Temp Pulse Resp BP Pulse Ox 03/02/21 14:42 36.4 C 68 17 160/81 H 98 - My Orders Last 24 Hours: My Active Orders 03/02/21 14:51 EKG Documentation Completion [RC] ASDIRECTED Dextrose 50% in Water 50 ml IVPUSH ASDIRECTED PRN Glucagon,Human Recombinant [GlucaGen] 1 mg IM ASDIRECTED PRN EKG 12 Lead [EK] Routine 03/02/21 15:47 Chest 2V [CR] Stat - Assessment/Plan Last 24 Hours: My Active Orders 03/02/21 14:51 EKG Documentation Completion [RC] ASDIRECTED Dextrose 50% in Water 50 ml IVPUSH ASDIRECTED PRN Glucagon,Human Recombinant [GlucaGen] 1 mg IM ASDIRECTED PRN EKG 12 Lead [EK] Routine 03/02/21 15:47 Chest 2V [CR] Stat
--- NOTE | 2021-03-04 11:05 | CR ---
INDICATION: Weak, hyperglycemia, IDDM, white blood count 13,000. CHEST, TWO VIEWS: PA and lateral views of the chest were obtained 03/02/21 and compared with 08/27/20 and 02/29/20, again revealing evidence of exogenous obesity. Bridging hyperostotic changes are noted in the mid thoracic spine. The heart did not appear enlarged. The aorta is slightly tortuous with calcification in the arch. A definite active infiltrate or effusion was not identified. Upper lung field pulmonary vasculature appears very slightly increased in prominence compared with the previous study, etiology indeterminate, could represent pulmonary vascular congestion from noncardiac cause or in a patient with an acute myocardial event - correlate clinically. IMPRESSION: 1. ASD aorta. 2. There is very slight prominence of upper lung field pulmonary vasculature raising question of minimal or early pulmonary vascular congestion, possible noncardiac etiology versus acute myocardial event - correlate clinically. 3. Exogenous obesity. 4. Hypertrophic degenerative changes in the thoracic spine. MTDD
== END 2021-03-02 17:30 | disposition home or self-care (01) ==
LOC: FB.ED 14:42
DX: E86.0 Dehydration (principal); R82.4 Acetonuria; D72.829 Elevated white blood cell count, unspecified; E11.65 Type 2 diabetes mellitus with hyperglycemia; E66.9 Obesity, unspecified; E78.00 Pure hypercholesterolemia, unspecified; I10 Essential (primary) hypertension; J45.909 Unspecified asthma, uncomplicated; F17.200 Nicotine dependence, unspecified, uncomplicated; Z79.82 Long term (current) use of aspirin; Z79.4 Long term (current) use of insulin; Z79.899 Other long term (current) drug therapy; Z68.35 Body mass index [BMI] 35.0-35.9, adult; Z91.041 Radiographic dye allergy status; Z88.0 Allergy status to penicillin
CPT/HCPCS: 36415; 71046; 80053; 81001; 82947; 84484; 85025; 86140; 93005; 99285-25; A9270-GY; J1815-GY; J7030

== ENCOUNTER 2021-03-03 03:15 | Emergency (ER) | payer MEDICARE, MEDICAID ==
[2021-03-03] MEDS ORDERED: HYDROmorphone 2 MG/ML SDV IM ONE (03:37)
[2021-03-03] MEDS ORDERED: hydrOXYzine HCl 50 MG/ML SDV IM ONE (03:40)
--- NOTE | 2021-03-03 04:39 | ER ---
DATE SEEN: 03/03/2021 CHIEF COMPLAINT: Back pain. HISTORY OF PRESENT ILLNESS: A 60-year-old female complains of left leg pain starting from the buttock down to the leg. Severe pain that is uncontrollable. She has had this pain before and believes it is due to sciatica. Tonight, she is unable to sleep because of the pain despite taking Tylenol and ibuprofen. PAST MEDICAL HISTORY: She has history of schizophrenia, anxiety, depression. MEDICATIONS: Reviewed. PHYSICAL EXAMINATION: VITAL SIGNS: She is very anxious, sweaty, crying. EXTREMITIES: Left leg, no obvious swelling. There is tenderness in the left buttock and diminished range of motion of the left leg, but normal peripheral pulse. IMPRESSION: 1. Sciatica. 2. Anxiety. TREATMENT: Dilaudid 2 mg IM and Vistaril 50 mg IM. Follow up in the office in 1 to 2 days. /[id number] AGUSTIN/JAZMINE
== END 2021-03-03 04:20 | disposition home or self-care (01) ==
LOC: FB.ED 03:15
DX: M54.32 Sciatica, left side (principal); F41.9 Anxiety disorder, unspecified
CPT/HCPCS: 96372; 99284; J1170; J3410

== ENCOUNTER 2021-03-04 12:43 | Emergency (ER) | payer MEDICARE, MEDICAID ==
--- NOTE | 2021-03-04 13:09 | EDM.PDOC ---
ED HPI GENERAL MEDICAL PROBLEM - General Stated Complaint: BACK AND LEFT LEG PAIN Time Seen by Provider: 03/04/21 13:04 Source of Information: Reports: Patient History Limitations: Reports: No Limitations - History of Present Illness INITIAL COMMENTS - FREE TEXT/NARRATIVE: 60-year-old female who has been having intermittent back pain for some time and since December she has been having left leg pain associated with this back pain. She reports that getting at 4 AM 2 days ago, she had a worsening of the pain in her lower back that seemed to radiate to her left buttock down her left posterior thigh and into her left foot and lower leg. She also reports that there is some numbness in her left foot. She reports that she has been having numbness in her left foot for about the past 2 months as well. The pain is now a 10/10. It is severe and shooting type pain that is also burning. It does seem to be worse with palpation and with movement. It really seems to make it better. She was seen on 03/02/2021 secondary to generalized malaise with nausea and vomiting and had a workup which included a chest x-ray and some blood tests which are was reassuring but lightly elevated white blood cell count and the physician place the patient on Zithromax because of this. The patient reports that beginning after that emergency department visit, she began having the pain and her back and going down her left leg and that prompted her to return to the emergency department course she was seen by Dr Becerra who gave the patient a shot of Dilaudid and Vistaril and the patient reports that the pain was better for a while after this. Today, the patient reports that her pain is back up to a high level and it prompted her to go to the [facility] in [place]. She was seen by a nurse practitioner and was given a shot of Toradol for pain. She reports that that has done nothing for pain and she now presents to the emergency department via ambulance secondary to severe pain that she reports keeps her from being able to walk without her walker. She has had no abdominal pain. There has been no nausea or vomiting. She has had no fevers or chills. There has been no difficulty breathing. She has had no bowel or bladder control problems. She does not really feel that her leg feels weak but more so that pain prevents her from being able to use it as well as she normally would. She states that she has been seen by her chiropractor for this in the past 2 months and she had osteopathic manipulation which seemed to improve her symptoms. She is set up to see her chiropractor in a few days but she feels that the pain is so severe that she "cannot stand the pain and cannot wait for that appointment". There are no other associated signs or symptoms. There are no other modifying factors. Onset: Other (Ongoing for months.) Duration: Getting Worse (Over the past 2 days.) Location: Reports: Back, Lower Extremity, Left Quality: Reports: Burning, Sharp (And shooting.) Severity: Severe Improves with: Reports: None Worsens with: Reports: Other (Palpation), Movement Context: Reports: Other (As above. 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 (Given Toradol in clinic earlier today.) - Related Data Allergies Allergy/AdvReac Type Severity Reaction Status Date / Time Iodinated Contrast Media Allergy Hives Verified 03/04/21 12:56 [Iodinated Contrast- Oral and IV Dye] Penicillins Allergy Hives Verified 03/04/21 12:56 Home Meds: Home Meds Divalproex Sodium [Divalproex Sodium ER] 500 mg PO DAILY 12/09/18 [History] Doxepin [SINEquan] 10 - 30 mg PO Q6H PRN 12/09/18 [History] atorvaSTATin [Lipitor] 40 mg PO BEDTIME 12/09/18 [History] risperiDONE [Risperdal] 4 mg PO BEDTIME 12/09/18 [History] Aspirin [Halfprin] 81 mg PO DAILY 04/07/19 [History] Nitroglycerin 0.4 mg SL ASDIRECTED PRN 05/15/19 [History] Insulin Aspart [NovoLOG] 5 units SQ TID 02/29/20 [History] Insulin Detemir [Levemir] 20 unit SUBCUT DAILY 02/29/20 [History] Insulin Detemir [Levemir] 40 units SQ BEDTIME 02/29/20 [History] Terconazole [Terazol 7 Vaginal Crm] 1 appful DAILY 02/29/20 [History] Sulfamethoxazole/Trimethoprim [Sulfamethoxazole-Tmp Ds Tablet] 1 each PO BID #5 tablet 01/18/21 [Rx] Gabapentin [Neurontin] 300 mg PO BID #60 cap 03/04/21 [Rx] Past Medical History Cardiovascular History: Reports: High Cholesterol, Hypertension Respiratory History: Reports: Asthma Other Respiratory History: chronic smoker since she was 14 years old. Gastrointestinal History: Reports: GERD Musculoskeletal History: Reports: Fracture Other Musculoskeletal History: L ankle fx Psychiatric History: Reports: Addiction, Anxiety, Depression, Schizophrenia Other Psychiatric History: Uses marijuana, meth, cocaine and whatever else she can get every once in awhile when available. Endocrine/Metabolic History: Reports: Diabetes, Type II, Obesity/BMI 30+ Dermatologic History: Reports: Other (See Below) Other Dermatologic History: allergic dermatitis - Past Surgical History Musculoskeletal Surgical History: Reports: Arthroscopic Knee (Right knee.), Carpal Tunnel, ORIF, Other (See Below) Other Musculoskeletal Surgeries/Procedures:: left ankle, right hand and wrist sx. Social & Family History - Tobacco Use Tobacco Use Status *Q: Current Every Day Tobacco User - Caffeine Use Caffeine Use: Reports: Coffee, Soda Other Caffeine Use: iced coffee. - Alcohol Use Alcohol Use History: Yes Alcohol Use Frequency: Weekly - Living Situation & Occupation Living situation: Reports: Single Occupation: Employed (Works at [employer]) ED ROS GENERAL - Review of Systems Review Of Systems: See Below Constitutional: Reports: No Symptoms HEENT: Reports: No Symptoms Respiratory: Reports: No Symptoms Cardiovascular: Reports: No Symptoms Endocrine: Reports: No Symptoms GI/Abdominal: Reports: No Symptoms : Reports: No Symptoms Musculoskeletal: Reports: Back Pain, Leg Pain Skin: Reports: No Symptoms Neurological: Reports: No Symptoms Psychiatric: Reports: No Symptoms Hematologic/Lymphatic: Reports: No Symptoms Immunologic: Reports: No Symptoms ED EXAM, GENERAL - Physical Exam Exam: See Below Exam Limited By: No Limitations General Appearance: Alert, Moderate Distress (Appears in pain.), Obese Eye Exam: Bilateral Eye: EOMI, Normal Inspection, PERRL Ears: Normal External Exam, Hearing Grossly Normal Ear Exam: Bilateral Ear: Auricle Normal Nose: Normal Inspection, Normal Mucosa, No Blood Throat/Mouth: Normal Inspection, Normal Oropharynx, Normal Voice, No Airway Compromise Head: Atraumatic, Normocephalic Neck: Normal Inspection, Supple, Non-Tender, Full Range of Motion Respiratory/Chest: No Respiratory Distress, Lungs Clear, Normal Breath Sounds, No Accessory Muscle Use, Chest Non-Tender Cardiovascular: Normal Peripheral Pulses, Regular Rate, Rhythm, No Murmur Peripheral Pulses: 2+: Radial (L), Radial (R), Dorsalis Pedis (L), Dorsalis Pedis (R) GI/Abdominal: Normal Bowel Sounds, Soft, Non-Tender, No Mass Back Exam: Normal Inspection, Muscle Spasm (On left side.), Paraspinal Te nderness (On left side.) Extremities: Normal Inspection, Normal Range of Motion, No Pedal Edema, Normal Capillary Refill, Other (Tender to palpation over the left posterior thigh) Neurological: Alert, Oriented, CN II-XII Intact, Normal Cognition, No Motor/Sensory Deficits, Other (She has full function in her left lower extremity. There is negative straight leg raising bilaterally.) Skin Exam: Warm, Dry, Intact, Normal Color, No Rash Course - Orders/Labs/Meds Orders: Active Orders 24 hr Category Date Time Status Lumbar Spine wo Cont [CT] Stat Exams 03/04/21 13:33 Taken Meds: Medications Discontinued Medications Generic Name Dose Route Start Last Admin Trade Name Freq PRN Reason Stop Dose Admin Gabapentin 600 mg 03/04/21 13:31 03/04/21 13:56 Gabapentin 300 Mg Cap PO 03/04/21 13:32 600 mg ONETIME ONE Administration Lorazepam 1 mg 03/04/21 13:31 03/04/21 13:57 Lorazepam 2 Mg/Ml Sdv IM 03/04/21 13:32 1 mg ONETIME ONE Administration Morphine Sulfate 10 mg 03/04/21 13:31 03/04/21 13:57 Morphine 10 Mg/Ml Sdv IM 03/04/21 13:32 10 mg ONETIME ONE Administration - Radiology Interpretation Free Text/Narrative:: CT scan of the lumbar spine without contrast showed DDD with narrowing of the L5-S1 space and some evidence of disc herniation in the L3 and L4 spaces with herniation to the left and with some encroachment on the neuroforaminal space at the L5-S1 area. There were no fractures and no evidence of lytic lesions. This was per Dr. Rodriguez. He did suggest that an MRI of the patient's lumbar spine would be better to evaluate for the disc disease and he did not feel that it required emergent MRI but could be scheduled as an outpatient. - Re-Assessments/Exams Free Text/Narrative Re-Assessment/Exam: 03/04/21 14:37: Patient's CT scan of her lumbar spine showed degenerative disc disease and some disc herniation to the left but no other skin abnormalities and no evidence of fracture or lytic lesions. The patient had received morphine 10 mg, Ativan 1 mg IM and Neurontin 600 mg orally. She reports that her pain is basically a 0/10. She feels much improved. I will discharge the patient with follow-up through [facility] in [place] and through Dr. Becerra as she will need further outpatient workup. She reports that she had been seen by a chiropractor in the past with some good results. She is to see the chiropractor this week. I will give her a prescription for Neurontin. She can take Tylenol and ibuprofen for pain as well. Departure - Departure Time of Disposition: 14:47 Disposition: Home, Self-Care 01 Condition: Good (Improved) Clinical Impression: Lumbar degenerative disc disease, Back pain of lumbosacral region with sciatica, Left lumbosacral radiculopathy - Discharge Information Prescriptions: Gabapentin [Neurontin] 300 mg PO BID #60 cap Instructions: Sciatica, [id number], Lumbosacral Radiculopathy, Degenerative Disk Disease Referrals: Skip Becerra MD [Primary Care Provider] - Additional Instructions: The CAT scan of your back showed problems with the disc in your back that could be causing pression of the nerves going down to your left leg. This is most probably the cause of your back pain and left leg pain. You should keep the appointment with your chiropractor if you feel that he is providing her some relief of your symptoms. He also need to follow-up with Dr. Becerra as you may need further testing. Can take Tylenol and ibuprofen for your pain. Medication as prescribed for your pain (Neurontin 300 mg). Back to the emergency department for fever, bowel or bladder control problems or any other concerning signs or symptoms. - My Orders Last 24 Hours: My Active Orders 03/04/21 13:33 Lumbar Spine wo Cont [CT] Stat - Assessment/Plan Last 24 Hours: My Active Orders 03/04/21 13:33 Lumbar Spine wo Cont [CT] Stat
[2021-03-04] MEDS ORDERED: LORazepam 2 MG/ML SDV IM ONE (13:31)
[2021-03-04] MEDS ORDERED: Morphine 10 MG/ML SDV IM ONE (13:31)
[2021-03-04] MEDS ORDERED: Gabapentin 300 MG Cap PO ONE (13:31)
--- NOTE | 2021-03-04 15:24 | CT ---
LUMBOSACRAL SPINE CT WITHOUT CONTRAST 7682 INDICATION: Severe back pain with left sciatica. Spiral 2.5 mm axial sections were obtained through the lumbosacral spine with axial, sagittal, and coronal reconstructions. Axial reconstructions were obtained with angle gantry through the L3-4, L4-5, and L5-S1 disc spaces. Examination was obtained 03/04/2021--no comparisons. Total exam DLP was 1123.33 mGy-cm. The L2-3 disc appears to be bulging posteriorly in general narrowing the canal slightly. At L3-4, there appears to be relative bulging focally on the left which could be impinging on a nerve root and may represent an HNP. The L4-5 level also shows suggestion of a bulging disc on the left which could be impinging on nerve root in that area. The L4-5 level also shows suggestion of a bulging disc on the left which could be impinging on nerve root in that area. At L5-S1 there is vacuum disc phenomenon with herniation of the gas into the spinal canal on the right and left. Hypertrophic changes at the apophyseal joints at that level most severe on the left area producing narrowing of the neural foramen on the left. Hypertrophic changes of vertebral bodies at that level are narrowing the canal midline and to the left. Vertebral body heights were well maintained. Bone density appeared to be normal. Calcifications are noted in the abdominal aorta and iliac arteries. There are noted mild hypertrophic degenerative changes of vertebral bodies at all levels anteriorly and as mentioned above posteriorly at L5-S1 narrowing neural foramina but especially the left L5-S1 neural foramen. IMPRESSION: Findings suggest multilevel degenerative disc disease and suggestion of HNP's on the left at L3-4, L4-5 with narrowing of the L5-S1 neural foramen on the left felt to be relatively prominent. There is also herniation of gas at L5-S1. Report was called to Dr. Baker at 1420 hours 03/04/2021. [facility]
== END 2021-03-04 15:15 | disposition home or self-care (01) ==
LOC: FB.ED 12:43
DX: M51.16 Intervertebral disc disorders with radiculopathy, lumbar region (principal); E78.00 Pure hypercholesterolemia, unspecified; I10 Essential (primary) hypertension; J45.909 Unspecified asthma, uncomplicated; F17.200 Nicotine dependence, unspecified, uncomplicated; E11.9 Type 2 diabetes mellitus without complications; E66.9 Obesity, unspecified; Z68.36 Body mass index [BMI] 36.0-36.9, adult; Z91.041 Radiographic dye allergy status; Z88.0 Allergy status to penicillin; Z79.82 Long term (current) use of aspirin; Z79.4 Long term (current) use of insulin; Z79.899 Other long term (current) drug therapy
CPT/HCPCS: 72131; 96372; 99284-25; A9270-GY; J2060; J2270

== ENCOUNTER 2021-04-01 12:34 | Emergency (ER) | payer MEDICARE, MEDICAID ==
[2021-04-01] MEDS ORDERED: Acetaminophen 500 MG Tab PO ONE (13:28)
[2021-04-01] MEDS ORDERED: hydrOXYzine HCl 50 MG/ML SDV IM ONE (13:28)
[2021-04-01] MEDS ORDERED: Ketorolac 30 MG/ML SDV IM ONE (13:28)
--- NOTE | 2021-04-01 13:35 | EDM.PDOC ---
ED HPI GENERAL MEDICAL PROBLEM - General Stated Complaint: L HIP PAIN Time Seen by Provider: 04/01/21 13:10 Source of Information: Reports: Patient History Limitations: Reports: No Limitations - History of Present Illness INITIAL COMMENTS - FREE TEXT/NARRATIVE: c/o LLE pain lives alone, has had pain for 3m in LLE, not localized, CT l-spine 1m ago with DJD l-spine taking naprosyn 500 mg bid, Flexeril 10 mg qhs and pregabalin 75 mg bid used crutches this AM took EMS to ED Left Leg Pain Score (Numeric/FACES): 10 - Related Data Allergies Allergy/AdvReac Type Severity Reaction Status Date / Time Iodinated Contrast Media Allergy Hives Verified 03/04/21 12:56 [Iodinated Contrast- Oral and IV Dye] Penicillins Allergy Hives Verified 03/04/21 12:56 Home Meds: Home Meds Divalproex Sodium [Divalproex Sodium ER] 500 mg PO DAILY 12/09/18 [History] Doxepin [SINEquan] 10 - 30 mg PO Q6H PRN 12/09/18 [History] atorvaSTATin [Lipitor] 40 mg PO BEDTIME 12/09/18 [History] risperiDONE [Risperdal] 4 mg PO BEDTIME 12/09/18 [History] Aspirin [Halfprin] 81 mg PO DAILY 04/07/19 [History] Nitroglycerin 0.4 mg SL ASDIRECTED PRN 05/15/19 [History] Insulin Aspart [NovoLOG] 5 units SQ TID 02/29/20 [History] Insulin Detemir [Levemir] 20 unit SUBCUT DAILY 02/29/20 [History] Insulin Detemir [Levemir] 40 units SQ BEDTIME 02/29/20 [History] Terconazole [Terazol 7 Vaginal Crm] 1 appful DAILY 02/29/20 [History] Sulfamethoxazole/Trimethoprim [Sulfamethoxazole-Tmp Ds Tablet] 1 each PO BID #5 tablet 01/18/21 [Rx] Gabapentin [Neurontin] 300 mg PO BID #60 cap 03/04/21 [Rx] Past Medical History - Past Health History Medical/Surgical History: Denies Medical/Surgical History Cardiovascular History: Reports: High Cholesterol, Hypertension Respiratory History: Reports: Asthma Other Respiratory History: chronic smoker since she was 14 years old. 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 Endocrine/Metabolic History: Reports: Diabetes, Type II, Obesity/BMI 30+ Hematologic History: Reports: None Oncologic (Cancer) History: Reports: None Dermatologic History: Reports: Other (See Below) Other Dermatologic History: allergic dermatitis - Past Surgical History Musculoskeletal Surgical History: Reports: Arthroscopic Knee (Right knee.), Carpal Tunnel, ORIF, Other (See Below) Social & Family History - Family History Family Medical History: No Pertinent Family History - Caffeine Use Caffeine Use: Reports: Coffee Other Caffeine Use: iced coffee. - Living Situation & Occupation Living situation: Reports: Single Occupation: Employed (Works at [employer]) Review of Systems - Review of Systems Review Of Systems: See Below Constitutional: Reports: No Symptoms Eyes: Reports: No Symptoms Ears: Reports: No Symptoms Nose: Reports: No Symptoms Mouth/Throat: Reports: No Symptoms Respiratory: Reports: No Symptoms Cardiovascular: Reports: No Symptoms GI/Abdominal: Reports: No Symptoms Genitourinary: Reports: No Symptoms Musculoskeletal: Reports: Leg Pain Skin: Reports: No Symptoms Neurological: Reports: No Symptoms Psychiatric: Reports: No Symptoms ED EXAM, GENERAL - Physical Exam Exam: See Below General Appearance: Alert, WD/WN, Anxious Extremities: Other (very anxious, old scar at later L ankle, lying on R side, no edema, R knee without effusion, c/o pain at touching LLE anywhere, 1+ L SI tender, l-spine nontender) Course - Vital Signs Last Recorded V/S: Last Vital Signs Temp 36.8 C 04/01/21 12:35 Pulse 85 04/01/21 12:35 Resp 22 H 04/01/21 12:35 BP 168/117 H 04/01/21 12:35 Pulse Ox 99 04/01/21 12:35 - Orders/Labs/Meds Meds: Medications Discontinued Medications Generic Name Dose Route Start Last Admin Trade Name Freq PRN Reason Stop Dose Admin Acetaminophen 1,000 mg 04/01/21 13:28 04/01/21 13:41 Acetaminophen 500 Mg Tab PO 04/01/21 13:29 1,000 mg ONETIME ONE Administration Hydroxyzine HCl 50 mg 04/01/21 13:28 04/01/21 13:40 Hydroxyzine Hcl 50 Mg/Ml Sdv IM 04/01/21 13:29 50 mg ONETIME ONE Administration Ketorolac Tromethamine 60 mg 04/01/21 13:28 04/01/21 13:40 Ketorolac 30 Mg/Ml Sdv IM 04/01/21 13:29 60 mg ONETIME ONE Administration - Re-Assessments/Exams Free Text/Narrative Re-Assessment/Exam: 04/01/21 14:40 pt felt better after meds here (apap 1000 mg PO, Toradol 60 mg IM) pt says she is going to see the chiropractor after she leaves here lives alone, no children, works 29 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 [employer], 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, given note to be off work tonight felt better at time of d/c Departure - Departure Time of Disposition: 14:36 Disposition: DC/Tfer to [facility] [id number] Condition: Good Clinical Impression: Inflammation of left sacroiliac joint - Discharge Information *PRESCRIPTION DRUG MONITORING PROGRAM REVIEWED*: Not Applicable *COPY OF PRESCRIPTION DRUG MONITORING REPORT IN PATIENT YANN: Not Applicable Instructions: Sacroiliac Joint Dysfunction Forms: ED Return to Work/School Form Additional Instructions: You have pain and tenderness over the left sacroiliac joint (at the back of the pelvis). For pain and inflammation, continue naprosyn 500 mg 1 tab 2 times a day. For pain and inflammation, also take acetaminophen 500 mg 2 tabs 3 times a day. For inflammation, use ice (or heat) for 10 minutes 3 times a day. Sleep on a firm mattress. No work today. See your PCP this week for further recommendations. Sepsis Event Note (ED) - Focused Exam Vital Signs: Vital Signs Temp Pulse Resp BP Pulse Ox 04/01/21 12:35 36.8 C 85 22 H 168/117 H 99
== END 2021-04-01 15:05 | disposition home or self-care (01) ==
LOC: FB.ED 12:34
DX: M46.1 Sacroiliitis, not elsewhere classified (principal); E78.00 Pure hypercholesterolemia, unspecified; I10 Essential (primary) hypertension; J45.909 Unspecified asthma, uncomplicated; F17.200 Nicotine dependence, unspecified, uncomplicated; E11.9 Type 2 diabetes mellitus without complications; E66.9 Obesity, unspecified; Z68.45 Body mass index [BMI] 70 or greater, adult; Z91.041 Radiographic dye allergy status; Z88.0 Allergy status to penicillin; Z79.4 Long term (current) use of insulin; Z79.82 Long term (current) use of aspirin
CPT/HCPCS: 96372; 99284; A9270; J1885; J3410

== ENCOUNTER 2021-04-05 08:28 | Emergency (ER) | payer MEDICARE, MEDICAID ==
--- NOTE | 2021-04-05 08:49 | EDM.PDOC ---
ED HPI GENERAL MEDICAL PROBLEM - General Time Seen by Provider: 04/05/21 08:45 Source of Information: Reports: Patient History Limitations: Reports: No Limitations - History of Present Illness INITIAL COMMENTS - FREE TEXT/NARRATIVE: 60-year-old female with history of ongoing left back pain with left lumbar radiculopathy has been ongoing for about the past 4-5 months. She has been seen multiple times for this in the emergency department and did have a CT scan of her back which really didn't did not show anything of significant nature and has had blood tests which have been normal. She was last seen at 2020 and was given Toradol and Vistaril for her pain. She has been told to follow-up with her primary provider and she has not done that yet. She states that she has some pain at least every day but at times it is quite severe. When she woke this morning at around 8 AM, she went to the bathroom and noted that she was having pain in her lower back, left buttock and left lateral thigh and it has progressively worsened and is currently a 10/10 level of pain. It is a sharp and shooting type pain. She cannot find a comfortable position. It is worse with palpation and with movement. She has some feelings of tingling into her left foot. She has had no bowel or bladder control problems. No fevers. No nausea or vomiting. No abdominal pain. There are no other associated signs or symptoms. There are no other modifying factors. - Related Data Allergies Allergy/AdvReac Type Severity Reaction Status Date / Time Iodinated Contrast Media Allergy Hives Verified 03/04/21 12:56 [Iodinated Contrast- Oral and IV Dye] Penicillins Allergy Hives Verified 03/04/21 12:56 Home Meds: Home Meds Divalproex Sodium [Divalproex Sodium ER] 500 mg PO DAILY 12/09/18 [History] Doxepin [SINEquan] 10 - 30 mg PO Q6H PRN 12/09/18 [History] atorvaSTATin [Lipitor] 40 mg PO BEDTIME 12/09/18 [History] risperiDONE [Risperdal] 4 mg PO BEDTIME 12/09/18 [History] Aspirin [Halfprin] 81 mg PO DAILY 04/07/19 [History] Nitroglycerin 0.4 mg SL ASDIRECTED PRN 05/15/19 [History] Insulin Aspart [NovoLOG] 5 units SQ TID 02/29/20 [History] Insulin Detemir [Levemir] 20 unit SUBCUT DAILY 02/29/20 [History] Insulin Detemir [Levemir] 40 units SQ BEDTIME 02/29/20 [History] Terconazole [Terazol 7 Vaginal Crm] 1 appful DAILY 02/29/20 [History] Sulfamethoxazole/Trimethoprim [Sulfamethoxazole-Tmp Ds Tablet] 1 each PO BID #5 tablet 01/18/21 [Rx] Gabapentin [Neurontin] 300 mg PO BID #60 cap 03/04/21 [Rx] Past Medical History Cardiovascular History: Reports: High Cholesterol, Hypertension Respiratory History: Reports: Asthma Other Respiratory History: chronic smoker since she was 14 years old. Gastrointestinal History: Reports: GERD Musculoskeletal History: Reports: Back Pain, Chronic, Fracture Other Musculoskeletal History: L ankle fx Psychiatric History: Reports: Addiction, Anxiety, Depression, Schizophrenia Other Psychiatric History: Uses marijuana, meth, cocaine and whatever else she can get every once in awhile when available. Endocrine/Metabolic History: Reports: Diabetes, Type II, Obesity/BMI 30+ Dermatologic History: Reports: Other (See Below) Other Dermatologic History: allergic dermatitis - Past Surgical History Musculoskeletal Surgical History: Reports: Arthroscopic Knee (Right knee.), Carpal Tunnel, ORIF Social & Family History - Tobacco Use Tobacco Use Status *Q: Current Every Day Tobacco User - Caffeine Use Caffeine Use: Reports: Soda Other Caffeine Use: iced coffee. - Alcohol Use Alcohol Use History: No - Living Situation & Occupation Living situation: Reports: Single Occupation: Employed (Works at [employer]) ED ROS GENERAL - Review of Systems Review Of Systems: See Below Constitutional: Reports: No Symptoms HEENT: Reports: No Symptoms Respiratory: Reports: No Symptoms Cardiovascular: Reports: No Symptoms Endocrine: Reports: No Symptoms GI/Abdominal: Reports: No Symptoms : Reports: No Symptoms Musculoskeletal: Reports: Back Pain, Leg Pain (Left leg pain) Skin: Reports: No Symptoms Neurological: Reports: No Symptoms Psychiatric: Reports: No Symptoms Hematologic/Lymphatic: Reports: No Symptoms Immunologic: Reports: No Symptoms ED EXAM,LOWER BACK PAIN/INJURY - Physical Exam Exam: See Below Exam Limited By: No Limitations General Appearance: Alert, Moderate Distress (Appears in acute pain.), Obese Eye Exam: Bilateral Eye: EOMI, Normal Inspection, PERRL Ears: Normal External Exam, Hearing Grossly Normal Nose: Normal Inspection, Normal Mucosa, No Blood Throat/Mouth: Normal Inspection, Normal Oropharynx, Normal Voice, No Airway Compromise Head: Atraumatic, Normocephalic Neck: Normal Inspection, Supple, Non-Tender, Full Range of Motion Respiratory/Chest: No Respiratory Distress, Normal Breath Sounds, No Accessory Muscle Use, Chest Non-Tender Cardiovascular: Normal Peripheral Pulses, Regular Rate, Rhythm, No Murmur GI/Abdominal: Normal Bowel Sounds, Soft, Non-Tender, No Mass Back Exam: Full Range of Motion. No: Muscle Spasm, Paraspinal Tenderness Extremities: Normal Inspection, No Pedal Edema, Normal Capillary Refill, Leg Pain (Tenderness along the left buttock and left lateral thigh. No.) Neurological: Alert, Normal Mood/Affect, Normal Dorsiflexion, CN II-XII Intact, Normal Plantar Flexion, No Motor/Sensory Deficits, Oriented x 3 Psychiatric: Normal Affect, Anxious Skin Exam: Warm, Dry, Intact, Normal Color, No Rash Course - Orders/Labs/Meds Meds: Medications Discontinued Medications Generic Name Dose Route Start Last Admin Trade Name Freq PRN Reason Stop Dose Admin Hydroxyzine HCl 100 mg 04/05/21 09:00 Hydroxyzine Hcl 50 Mg/Ml Sdv IM 04/05/21 09:01 ONETIME ONE Ketorolac Tromethamine 30 mg 04/05/21 09:00 Ketorolac 30 Mg/Ml Sdv IM 04/05/21 09:01 ONETIME ONE - Re-Assessments/Exams Free Text/Narrative Re-Assessment/Exam: 04/05/21 09:30: Patient with apparent left lumbar radiculopathy. She has been advised multiple times to follow-up with her primary provider and that she will need stool especially referral and further diagnostic testing is now patient. I have again advised her to follow-up with her primary provider this week. In the emergency department she was given Toradol 30 mg and Vistaril 75 mg IM. She has had good relief with her symptoms with this just recently. She will be stable for discharge after this. The patient is in agreement with this plan. Departure - Departure Time of Disposition: 09:45 Disposition: Home, Self-Care 01 Condition: Good (Improved) Clinical Impression: Left lumbar radiculopathy Chronic back pain Qualifiers: Back pain location: low back pain Back pain laterality: left Sciatica presence: with sciatica Sciatica laterality: sciatica of left side Qualified Code(s): M54.42 - Lumbago with sciatica, left side; G89.29 - Other chronic pain - Discharge Information Instructions: Managing Pain Without Opioids, Chronic Back Pain, [id number] Additional Instructions: As we have discussed before, you need to follow-up with your primary doctor another doctor in the clinic who is covering for your primary doctor as you probably need further outpatient testing and you may need referral to a specialist for this. Continue to take the medications that you have been prescribed. Back to the emergency department for her, bowel or bladder control problems, severe weakness or any other concerning signs or symptoms.
[2021-04-05] MEDS ORDERED: hydrOXYzine HCl 50 MG/ML SDV IM ONE (09:00)
[2021-04-05] MEDS ORDERED: Ketorolac 30 MG/ML SDV IM ONE (09:00)
== END 2021-04-05 09:50 | disposition home or self-care (01) ==
LOC: FB.ED 08:28
DX: M54.16 Radiculopathy, lumbar region (principal); M54.42 Lumbago with sciatica, left side; E78.00 Pure hypercholesterolemia, unspecified; I10 Essential (primary) hypertension; E11.9 Type 2 diabetes mellitus without complications; E66.9 Obesity, unspecified; Z79.899 Other long term (current) drug therapy; Z79.82 Long term (current) use of aspirin; Z79.4 Long term (current) use of insulin; Z72.0 Tobacco use; Z68.36 Body mass index [BMI] 36.0-36.9, adult
CPT/HCPCS: 96372; 99283; J1885; J3410

== ENCOUNTER 2021-04-26 11:29 | Emergency (ER) | payer MEDICARE, MEDICAID ==
[2021-04-26] MEDS ORDERED: cloNIDine 0.1 MG Tab PO ONE (12:09)
[2021-04-26] MEDS ORDERED: HYDROmorphone 2 MG/ML SDV IM ONE (12:09)
--- NOTE | 2021-04-27 19:07 | EDM.PDOC ---
ED HPI GENERAL MEDICAL PROBLEM - General Chief Complaint: Back Pain or Injury Stated Complaint: NERVE PAIN Time Seen by Provider: 04/26/21 11:45 Source of Information: Reports: Patient History Limitations: Reports: No Limitations - History of Present Illness INITIAL COMMENTS - FREE TEXT/NARRATIVE: pt c/o low back sharp intermittent sever pain radiating to the area behind the left knee, tells me she has been having this now for about 6 months on and off, pt denies any other associated neuro or GI or urinary sx or concerns, also any Hx of trauma to lower back . SBP noted at 210, pt is asymptomatic in this regards and states its typically controlled and that she has not taken her medications today. - Related Data Allergies Allergy/AdvReac Type Severity Reaction Status Date / Time Iodinated Contrast Media Allergy Hives Verified 04/26/21 15:49 [Iodinated Contrast- Oral and IV Dye] Penicillins Allergy Hives Verified 04/26/21 15:49 Home Meds: Home Meds Divalproex Sodium [Divalproex Sodium ER] 500 mg PO DAILY 12/09/18 [History] Doxepin [SINEquan] 10 - 30 mg PO Q6H PRN 12/09/18 [History] atorvaSTATin [Lipitor] 40 mg PO BEDTIME 12/09/18 [History] risperiDONE [Risperdal] 4 mg PO BEDTIME 12/09/18 [History] Aspirin [Halfprin] 81 mg PO DAILY 04/07/19 [History] Nitroglycerin 0.4 mg SL ASDIRECTED PRN 05/15/19 [History] Insulin Aspart [NovoLOG] 5 units SQ TID 02/29/20 [History] Insulin Detemir [Levemir] 20 unit SUBCUT DAILY 02/29/20 [History] Insulin Detemir [Levemir] 40 units SQ BEDTIME 02/29/20 [History] Terconazole [Terazol 7 Vaginal Crm] 1 appful DAILY 02/29/20 [History] Sulfamethoxazole/Trimethoprim [Sulfamethoxazole-Tmp Ds Tablet] 1 each PO BID #5 tablet 01/18/21 [Rx] Gabapentin [Neurontin] 300 mg PO BID #60 cap 03/04/21 [Rx] Levocetirizine Dihydrochloride [Xyzal] 5 mg PO DAILY 04/26/21 [History] Past Medical History - Past Health History Medical/Surgical History: Denies Medical/Surgical History Cardiovascular History: Reports: High Cholesterol, Hypertension Respiratory History: Reports: Asthma Other Respiratory History: chronic smoker since she was 14 years old. 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 Endocrine/Metabolic History: Reports: Diabetes, Type II, Obesity/BMI 30+ Hematologic History: Reports: None Oncologic (Cancer) History: Reports: None Dermatologic History: Reports: Other (See Below) Other Dermatologic History: allergic dermatitis - Past Surgical History Musculoskeletal Surgical History: Reports: Arthroscopic Knee, Carpal Tunnel, ORIF Other Musculoskeletal Surgeries/Procedures:: left ankle, right hand and wrist sx., right knee surgery Oncologic Surgical History: Reports: None Social & Family History - Family History Family Medical History: No Pertinent Family History - Tobacco Use Tobacco Use Status *Q: Current Every Day Tobacco User Years of Tobacco use: 40 Packs/Tins Daily: 0 - Caffeine Use Caffeine Use: Reports: Soda Other Caffeine Use: iced coffee. - Recreational Drug Use Recreational Drug Use: No - Living Situation & Occupation Living situation: Reports: Single Occupation: Employed (Works at [employer]) ED ROS GENERAL - Review of Systems Review Of Systems: See Below Constitutional: Reports: No Symptoms HEENT: Reports: No Symptoms Respiratory: Reports: No Symptoms Cardiovascular: Reports: No Symptoms GI/Abdominal: Reports: No Symptoms Musculoskeletal: Reports: Back Pain Skin: Reports: No Symptoms Neurological: Reports: Difficulty Walking. Denies: Numbness, Paresthesia, Tingling Psychiatric: Reports: No Symptoms ED EXAM, GENERAL - Physical Exam Exam: See Below Exam Limited By: No Limitations General Appearance: Alert, Moderate Distress Eye Exam: Bilateral Eye: Normal Inspection Nose: Normal Inspection Throat/Mouth: Normal Inspection, Normal Oropharynx Head: Atraumatic, Normocephalic Neck: Normal Inspection, Non-Tender Respiratory/Chest: No Respiratory Distress, Lungs Clear, Normal Breath Sounds Cardiovascular: Normal Peripheral Pulses, Regular Rate, Rhythm GI/Abdominal: Normal Bowel Sounds, Soft, Non-Tender Back Exam: Normal Inspection Extremities: Normal Inspection Neurological: Alert, Oriented, CN II-XII Intact Skin Exam: Warm Course - Vital Signs Text/Narrative:: pt has sciatica pain , was given Dilaudid here and few tablets on hydrocodone/ 10. has HTN uncontrolled but stable , was given Catapres 0.2 po and SBP in in the 160s prior to discharge. pt is medically stable to follow on this issue with PCP. supportive mng was recommended, she is to continue as well with own Flexeril Last Recorded V/S: Last Vital Signs Temp 36.1 C 04/26/21 11:29 Pulse 66 04/26/21 13:01 Resp 16 04/26/21 13:01 BP 146/79 H 04/26/21 13:01 Pulse Ox 97 04/26/21 13:01 - Orders/Labs/Meds Meds: Medications Discontinued Medications Generic Name Dose Route Start Last Admin Trade Name Qi PRN Reason Stop Dose Admin Clonidine HCl 0.2 mg 04/26/21 12:09 04/26/21 12:22 Clonidine 0.1 Mg Tab PO 04/26/21 12:10 0.2 mg ONETIME ONE Administration Hydromorphone HCl 1 mg 04/26/21 12:09 04/26/21 12:22 Hydromorphone 2 Mg/Ml Sdv IM 04/26/21 12:10 1 mg ONETIME ONE Administration Departure - Departure Time of Disposition: 12:10 Disposition: Home, Self-Care 01 Clinical Impression: Sciatica - Discharge Information Instructions: Sciatica Referrals: Skip Becerra MD [Primary Care Provider] - Forms: ED Department Discharge, ED Return to Work/School Form Additional Instructions: follow up this week for pain. Sepsis Event Note (ED) - Evaluation Sepsis Screening Result: No Definite Risk
== END 2021-04-26 13:45 | disposition home or self-care (01) ==
LOC: FB.ED 11:29
DX: M54.42 Lumbago with sciatica, left side (principal); E78.00 Pure hypercholesterolemia, unspecified; I10 Essential (primary) hypertension; E11.9 Type 2 diabetes mellitus without complications; E66.9 Obesity, unspecified; Z79.82 Long term (current) use of aspirin; Z88.0 Allergy status to penicillin; Z91.041 Radiographic dye allergy status; Z79.4 Long term (current) use of insulin; Z68.30 Body mass index [BMI] 30.0-30.9, adult
CPT/HCPCS: 96372; 99284; A9270; J1170

== ENCOUNTER 2021-04-28 08:43 | Emergency (ER) | payer MEDICARE, MEDICAID ==
--- NOTE | 2021-04-28 09:15 | EDM.PDOC ---
ED HPI GENERAL MEDICAL PROBLEM - General Chief Complaint: Back Pain or Injury Stated Complaint: SCIATICA Time Seen by Provider: 04/28/21 09:07 Source of Information: Reports: Patient History Limitations: Reports: No Limitations - History of Present Illness INITIAL COMMENTS - FREE TEXT/NARRATIVE: 60-year-old female with recurrent episodes of left lower back and left lumbar radiculopathy type pain for quite some time. I have seen the patient multiple times for this. She was just seen in the emergency department 2 days ago for a similar type pain. She reports that she had been doing okay with her pain until this morning at 7:45 AM when she states she got up to try to go to the bathroom and "I could not even put my foot down because the pain was so severe". She reports that she called 911 and was brought in by ambulance secondary to this. She has had no bowel or bladder control problems. She has had no fever. No leg weakness but the pain is worse with movement of her leg and also with palpation of her leg. It seems to go all the way down to her foot with some numbness in her foot. She is currently rating the pain as a 10/10. It is a sharp and shooting type pain. She did not take any of her medications this morning. She apparently was given prescription for hydrocodone 5/325 (#10) and she was seen on 04/26/2021 and she reports that she is out of that medication and "that stuff don't work anyway". There are no other associated signs or symptoms. There are no other modifying factors. 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.) Lower Back Pain Score (Numeric/FACES): 10 - Related Data Allergies Allergy/AdvReac Type Severity Reaction Status Date / Time Iodinated Contrast Media Allergy Hives Verified 04/26/21 15:49 [Iodinated Contrast- Oral and IV Dye] Penicillins Allergy Hives Verified 04/26/21 15:49 Home Meds: Home Meds Divalproex Sodium [Divalproex Sodium ER] 500 mg PO DAILY 12/09/18 [History] Doxepin [SINEquan] 10 - 30 mg PO Q6H PRN 12/09/18 [History] atorvaSTATin [Lipitor] 40 mg PO BEDTIME 12/09/18 [History] risperiDONE [Risperdal] 4 mg PO BEDTIME 12/09/18 [History] Aspirin [Halfprin] 81 mg PO DAILY 04/07/19 [History] Nitroglycerin 0.4 mg SL ASDIRECTED PRN 05/15/19 [History] Insulin Aspart [NovoLOG] 5 units SQ TID 02/29/20 [History] Insulin Detemir [Levemir] 20 unit SUBCUT DAILY 02/29/20 [History] Insulin Detemir [Levemir] 40 units SQ BEDTIME 02/29/20 [History] Terconazole [Terazol 7 Vaginal Crm] 1 appful DAILY 02/29/20 [History] Sulfamethoxazole/Trimethoprim [Sulfamethoxazole-Tmp Ds Tablet] 1 each PO BID #5 tablet 01/18/21 [Rx] Levocetirizine Dihydrochloride [Xyzal] 5 mg PO DAILY 04/26/21 [History] Past Medical History Cardiovascular History: Reports: High Cholesterol, Hypertension Respiratory History: Reports: Asthma Other Respiratory History: chronic smoker since she was 14 years old. Gastrointestinal History: Reports: GERD Musculoskeletal History: Reports: Back Pain, Chronic, Fracture Other Musculoskeletal History: L ankle fx Psychiatric History: Reports: Addiction, Anxiety, Depression, Schizophrenia Other Psychiatric History: Uses marijuana, meth, cocaine and whatever else she can get every once in awhile when available. Endocrine/Metabolic History: Reports: Diabetes, Type II, Obesity/BMI 30+ Dermatologic History: Reports: Other (See Below) Other Dermatologic History: allergic dermatitis - Past Surgical History Musculoskeletal Surgical History: Reports: Arthroscopic Knee, Carpal Tunnel, ORIF Other Musculoskeletal Surgeries/Procedures:: left ankle, right hand and wrist sx., right knee surgery Social & Family History - Tobacco Use Tobacco Use Status *Q: Current Every Day Tobacco User Years of Tobacco use: 20 Packs/Tins Daily: 0 - Caffeine Use Caffeine Use: Reports: Coffee Other Caffeine Use: iced coffee. - Alcohol Use Alcohol Use History: No - Recreational Drug Use Recreational Drug Use: No - Living Situation & Occupation Living situation: Reports: Single Occupation: Employed (Works at [employer]) ED ROS GENERAL - Review of Systems Review Of Systems: See Below Constitutional: Denies: Fever, Chills HEENT: Denies: Throat Pain, Vision Change Respiratory: Denies: Shortness of Breath, Cough Cardiovascular: Denies: Chest Pain, Dyspnea on Exertion GI/Abdominal: Denies: Nausea, Vomiting : Denies: Dysuria, Hematuria Musculoskeletal: Reports: Back Pain. Denies: Leg Pain Skin: Denies: Diaphoresis, Rash Neurological: Denies: Headache, Syncope Psychiatric: Reports: Anxiety Hematologic/Lymphatic: Denies: Easy Bleeding, Easy Bruising ED EXAM,LOWER BACK PAIN/INJURY - Physical Exam Exam: See Below Exam Limited By: No Limitations General Appearance: Alert, Moderate Distress (Appears in pain.), Obese Eye Exam: Bilateral Eye: EOMI, Normal Inspection, PERRL Ears: Normal External Exam, Hearing Grossly Normal Nose: Normal Inspection, Normal Mucosa, No Blood Throat/Mouth: Normal Inspection, Normal Oropharynx, Normal Voice, No Airway Compromise Head: Atraumatic, Normocephalic Neck: Normal Inspection, Supple, Non-Tender, Full Range of Motion Respiratory/Chest: No Respiratory Distress, Lungs Clear, Normal Breath Sounds, No Accessory Muscle Use, Chest Non-Tender Cardiovascular: Normal Peripheral Pulses, Regular Rate, Rhythm GI/Abdominal: Normal Bowel Sounds, Soft, Non-Tender, No Mass Back Exam: Muscle Spasm, Paraspinal Tenderness (On the left lower lumbar area.) Extremities: Normal Inspection, No Pedal Edema, Normal Capillary Refill, Leg Pain (Left lower extremity) Neurological: Alert, CN II-XII Intact, No Motor/Sensory Deficits, Oriented x 3, Extensor Response to Pain, Flexor Response to Pain Psychiatric: Flat Affect Skin Exam: Warm, Dry, Intact, Normal Color, No Rash Course - Vital Signs Last Recorded V/S: Last Vital Signs Temp 36.2 C 04/28/21 08:43 Pulse 87 04/28/21 10:44 Resp 16 04/28/21 10:44 BP 187/100 H 04/28/21 10:44 Pulse Ox 97 04/28/21 10:44 - Orders/Labs/Meds Meds: Medications Discontinued Medications Generic Name Dose Route Start Last Admin Trade Name Freq PRN Reason Stop Dose Admin Hydroxyzine HCl 75 mg 04/28/21 09:21 04/28/21 09:29 Hydroxyzine Hcl 50 Mg/Ml Sdv IM 04/28/21 09:22 75 mg ONETIME ONE Administration Ketorolac Tromethamine 30 mg 04/28/21 09:21 04/28/21 09:28 Ketorolac 30 Mg/Ml Sdv IM 04/28/21 09:22 30 mg ONETIME ONE Administration - Re-Assessments/Exams Free Text/Narrative Re-Assessment/Exam: 04/28/21 09:35: Middle-aged female with multiple ED visits related to her left lumbar back pain with lumbar radiculopathy. She supposedly is to follow-up with neurology this next Thursday. She apparently was seen on 04/26/2021 for this pain in the emergency department and the pain came back and was worse this morning and caused her to come back to the emergency department via ambulance. She is somewhat hypertensive upon arrival but she tells me that she has not taking any of her medications thus far and this has been the way she has presented in the past. I will give the patient Toradol 30 mg and Vistaril 75 mg IM. She has been treated with this in the past with good reduction in her pain. I have reiterated with the patient that she would need to go through her primary provider for any pain management issues and that I would not be able to provide her with a prescription for pain medications. 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 Departure - Departure Time of Disposition: 10:46 Disposition: Home, Self-Care 01 Condition: Fair (Stable.) Clinical Impression: Back pain of lumbosacral region with sciatica Chronic back pain Qualifiers: Back pain location: low back pain Back pain laterality: left Sciatica presence: with sciatica Sciatica laterality: sciatica of left side Qualified Code(s): M54.42 - Lumbago with sciatica, left side - Discharge Information Instructions: Sciatica, [id number], Chronic Back Pain, [id number] Referrals: Skip Becerra MD [Primary Care Provider] - Forms: ED Department Discharge Additional Instructions: Use the medications that you have at home as needed for your pain and muscle spasm. Follow-up with your primary provider for any further pain medications and for any pain management issues. Back to the emergency department for fever, unrelenting vomiting, Sepsis Event Note (ED) - Evaluation Sepsis Screening Result: No Definite Risk - Focused Exam Vital Signs: Vital Signs Temp Pulse Resp BP Pulse Ox 04/28/21 10:44 87 16 187/100 H 97 04/28/21 08:43 36.2 C 86 20 195/105 H 93 L
[2021-04-28] MEDS ORDERED: Ketorolac 30 MG/ML SDV IM ONE (09:21)
[2021-04-28] MEDS ORDERED: hydrOXYzine HCl 50 MG/ML SDV IM ONE (09:21)
== END 2021-04-28 10:46 | disposition home or self-care (01) ==
LOC: FB.ED 08:43
DX: M54.42 Lumbago with sciatica, left side (principal); E78.00 Pure hypercholesterolemia, unspecified; I10 Essential (primary) hypertension; E11.9 Type 2 diabetes mellitus without complications; E66.9 Obesity, unspecified; Z68.30 Body mass index [BMI] 30.0-30.9, adult; Z79.82 Long term (current) use of aspirin; Z79.4 Long term (current) use of insulin; Z88.0 Allergy status to penicillin; Z91.041 Radiographic dye allergy status
CPT/HCPCS: 96372; 99283; J1885; J3410

== ENCOUNTER 2021-05-09 06:18 | Emergency (ER) | payer MEDICARE, MEDICAID ==
[2021-05-09] MEDS ORDERED: hydrOXYzine HCl 50 MG/ML SDV IM ONE (06:35)
[2021-05-09] MEDS ORDERED: Ketorolac 30 MG/ML SDV IM ONE (06:35)
[2021-05-09] MEDS ORDERED: Triamcinolone Acetonide 40 MG/ML 1 ML SDV IM ONE (06:36)
--- NOTE | 2021-05-09 06:40 | EDM.PDOC ---
<Skip Becerra M - Last Filed: 05/09/21 06:36> ED HPI GENERAL MEDICAL PROBLEM - General Chief Complaint: Lower Extremity Injury/Pain Stated Complaint: BACK PAIN Time Seen by Provider: 05/09/21 06:36 Source of Information: Reports: Patient, EMS Notes Reviewed, RN History Limitations: Reports: No Limitations - History of Present Illness INITIAL COMMENTS - FREE TEXT/NARRATIVE: Khadijah complains of an exacerbation of chronic leg pain,left.She has had this for several months and has been see multiple times. Pain is radiation from the butt down to the leg. Unable to put any pressure. She was brought in by ambulance. She has a strong mental illness history,that includes bipolar disorder,anxiety and poorly controlled DM2. Left Leg Pain Score (Numeric/FACES): 10 - Related Data Allergies Allergy/AdvReac Type Severity Reaction Status Date / Time Iodinated Contrast Media Allergy Hives Verified 04/26/21 15:49 [Iodinated Contrast- Oral and IV Dye] Penicillins Allergy Hives Verified 04/26/21 15:49 Home Meds: Home Meds Divalproex Sodium [Divalproex Sodium ER] 500 mg PO DAILY 12/09/18 [History] Doxepin [SINEquan] 10 - 30 mg PO Q6H PRN 12/09/18 [History] atorvaSTATin [Lipitor] 40 mg PO BEDTIME 12/09/18 [History] risperiDONE [Risperdal] 4 mg PO BEDTIME 12/09/18 [History] Aspirin [Halfprin] 81 mg PO DAILY 04/07/19 [History] Nitroglycerin 0.4 mg SL ASDIRECTED PRN 05/15/19 [History] Insulin Aspart [NovoLOG] 5 units SQ TID 02/29/20 [History] Insulin Detemir [Levemir] 20 unit SUBCUT DAILY 02/29/20 [History] Insulin Detemir [Levemir] 40 units SQ BEDTIME 02/29/20 [History] Terconazole [Terazol 7 Vaginal Crm] 1 appful DAILY 02/29/20 [History] Sulfamethoxazole/Trimethoprim [Sulfamethoxazole-Tmp Ds Tablet] 1 each PO BID #5 tablet 01/18/21 [Rx] Levocetirizine Dihydrochloride [Xyzal] 5 mg PO DAILY 04/26/21 [History] Cyclobenzaprine [Flexeril] 10 mg PO TID PRN #30 tab 05/09/21 [Rx] Ibuprofen 800 mg PO Q8H PRN #30 tablet 05/09/21 [Rx] predniSONE [Prednisone] 40 mg PO DAILY #15 tablet 05/09/21 [Rx] Past Medical History - Past Health History Medical/Surgical History: Denies Medical/Surgical History Cardiovascular History: Reports: High Cholesterol, Hypertension Respiratory History: Reports: Asthma Other Respiratory History: chronic smoker since she was 14 years old. 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 Endocrine/Metabolic History: Reports: Diabetes, Type II, Obesity/BMI 30+ Hematologic History: Reports: None Oncologic (Cancer) History: Reports: None Dermatologic History: Reports: Other (See Below) Other Dermatologic History: allergic dermatitis - Past Surgical History Musculoskeletal Surgical History: Reports: Arthroscopic Knee, Carpal Tunnel, ORIF Other Musculoskeletal Surgeries/Procedures:: left ankle, right hand and wrist sx., right knee surgery Oncologic Surgical History: Reports: None Social & Family History - Family History Family Medical History: No Pertinent Family History - Tobacco Use Tobacco Use Status *Q: Current Every Day Tobacco User Years of Tobacco use: 46 Packs/Tins Daily: 0.2 - Caffeine Use Caffeine Use: Reports: None Other Caffeine Use: iced coffee. - Recreational Drug Use Recreational Drug Use: No - Living Situation & Occupation Living situation: Reports: Single Occupation: Employed (Works at [email or web address]) Review of Systems - Review of Systems Review Of Systems: Comprehensive ROS is negative, except as noted in HPI. ED EXAM, GENERAL - Physical Exam Exam: See Below Exam Limited By: Other (In Pain,crying) General Appearance: Alert, WD/WN, Anxious Respiratory/Chest: No Respiratory Distress Extremities: Normal Inspection, Normal Range of Motion Neurological: Alert, Oriented, CN II-XII Intact Departure - Departure Disposition: Home, Self-Care 01 Clinical Impression: Chronic low back pain, Radiculopathy, Lumbar degenerative disc disease Chronic back pain Qualifiers: Back pain location: low back pain Back pain laterality: left Sciatica presence: with sciatica Sciatica laterality: sciatica of left side Qualified Code(s): M54.42 - Lumbago with sciatica, left side - Discharge Information Prescriptions: Cyclobenzaprine [Flexeril] 10 mg PO TID PRN #30 tab PRN Reason: Spasms Ibuprofen 800 mg PO Q8H PRN #30 tablet PRN Reason: Pain predniSONE [Prednisone] 40 mg PO DAILY #15 tablet Instructions: Sciatica, [id number] Referrals: PCP,None [Primary Care Provider] - Forms: ED Department Discharge Additional Instructions: Please read discharge instructions on chronic low back pain and radiculopathy Continue your Lyrica Take all the following medications at the same time for better pain relief: Ibuprofen 800 mg with tylenol 1000 mg and flexeril 10 mg every 8 hours as needed for pain and spasms Prednisone 40 mg daily for 7 days Follow up with your doctor if symptoms persist or try seeing a pain specialist for epidural injection Sepsis Event Note (ED) - Evaluation Sepsis Screening Result: No Definite Risk - Problem List & Annotations (1) Leg pain SNOMED Code(s): 68639620 Code(s): M79.606 - PAIN IN LEG, UNSPECIFIED Status: Acute Qualifiers: Laterality: left Qualified Code(s): M79.605 - Pain in left leg - Problem List Review Problem List Initiated/Reviewed/Updated: Yes - Assessment/Plan Plan: I have given her IM injections of Toradol,Vistaril and Kenalog <Lorenzo Garcia - Last Filed: 05/09/21 08:03> Course - Vital Signs Text/Narrative:: Percocet 5mg, [address] Garcia Flexeril 10 mg PO x1 Last Recorded V/S: Last Vital Signs Temp 35.8 C L 05/09/21 06:22 Pulse 83 05/09/21 06:22 Resp 20 05/09/21 06:22 BP 145/90 H 05/09/21 06:22 Pulse Ox 97 05/09/21 06:22 - Orders/Labs/Meds Orders: Active Orders 24 hr Category Date Time Status Acetaminophen/oxyCODONE [Percocet 325-5 MG] Med 05/09/21 07:51 Stat 2 tab PO NOW STA Meds: Medications Discontinued Medications Generic Name Dose Route Start Last Admin Trade Name Freq PRN Reason Stop Dose Admin Hydroxyzine HCl 100 mg 05/09/21 06:35 05/09/21 06:41 Hydroxyzine Hcl 50 Mg/Ml Sdv IM 05/09/21 06:36 100 mg ONETIME ONE Administration Ketorolac Tromethamine 60 mg 05/09/21 06:35 05/09/21 06:41 Ketorolac 30 Mg/Ml Sdv IM 05/09/21 06:36 60 mg ONETIME ONE Administration Triamcinolone Acetonide 40 mg 05/09/21 06:36 05/09/21 06:40 Triamcinolone Acetonide 40 Mg/Ml 1 Ml Sdv IM 05/09/21 06:37 40 mg ONETIME ONE Administration Departure - Departure Time of Disposition: 08:00 Condition: Good Sepsis Event Note (ED) - Focused Exam Vital Signs: Vital Signs Temp Pulse Resp BP Pulse Ox 05/09/21 06:22 35.8 C L 83 20 145/90 H 97 - My Orders Last 24 Hours: My Active Orders 05/09/21 07:51 Acetaminophen/oxyCODONE [Percocet 325-5 MG] 2 tab PO NOW STA - Assessment/Plan Last 24 Hours: My Active Orders 05/09/21 07:51 Acetaminophen/oxyCODONE [Percocet 325-5 MG] 2 tab PO NOW STA
[2021-05-09] MEDS ORDERED: Acetaminophen/oxyCODONE 325-5 MG Tab PO STA (07:51)
[2021-05-09] MEDS ORDERED: Cyclobenzaprine 10 MG Tab PO STA (07:56)
== END 2021-05-09 08:56 | disposition home or self-care (01) ==
LOC: FB.ED 06:18
DX: M51.16 Intervertebral disc disorders with radiculopathy, lumbar region (principal); E78.00 Pure hypercholesterolemia, unspecified; I10 Essential (primary) hypertension; E11.9 Type 2 diabetes mellitus without complications; E66.9 Obesity, unspecified; Z79.4 Long term (current) use of insulin; Z68.30 Body mass index [BMI] 30.0-30.9, adult; Z72.0 Tobacco use; Z79.82 Long term (current) use of aspirin; Z79.899 Other long term (current) drug therapy; Z88.0 Allergy status to penicillin; Z91.041 Radiographic dye allergy status
CPT/HCPCS: 96372; 99283; 99284; A9270-GY; J1885; J3301; J3410

== ENCOUNTER 2021-06-16 11:09 | Emergency (ER) | payer MEDICARE, MEDICAID ==
--- NOTE | 2021-06-16 11:28 | EDM.PDOC ---
ED HPI GENERAL MEDICAL PROBLEM - General Stated Complaint: ??? 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 L3-4, L4-5 and narrowing L5-S1 neural foramen - Related Data Allergies Allergy/AdvReac Type Severity Reaction Status Date / Time Iodinated Contrast Media Allergy Hives Verified 06/16/21 11:16 [Iodinated Contrast- Oral and IV Dye] Penicillins Allergy Hives Verified 06/16/21 11:16 Home Meds: Home Meds Divalproex Sodium [Divalproex Sodium ER] 500 mg PO DAILY 12/09/18 [History] Doxepin [SINEquan] 10 - 30 mg PO Q6H PRN 12/09/18 [History] atorvaSTATin [Lipitor] 40 mg PO BEDTIME 12/09/18 [History] risperiDONE [Risperdal] 4 mg PO BEDTIME 12/09/18 [History] Aspirin [Halfprin] 81 mg PO DAILY 04/07/19 [History] Nitroglycerin 0.4 mg SL ASDIRECTED PRN 05/15/19 [History] Insulin Aspart [NovoLOG] 5 units SQ TID 02/29/20 [History] Insulin Detemir [Levemir] 20 unit SUBCUT DAILY 02/29/20 [History] Insulin Detemir [Levemir] 40 units SQ BEDTIME 02/29/20 [History] Terconazole [Terazol 7 Vaginal Crm] 1 appful DAILY 02/29/20 [History] Sulfamethoxazole/Trimethoprim [Sulfamethoxazole-Tmp Ds Tablet] 1 each PO BID #5 tablet 01/18/21 [Rx] Levocetirizine Dihydrochloride [Xyzal] 5 mg PO DAILY 04/26/21 [History] Cyclobenzaprine [Flexeril] 10 mg PO TID PRN #30 tab 05/09/21 [Rx] Ibuprofen 800 mg PO Q8H PRN #30 tablet 05/09/21 [Rx] predniSONE [Prednisone] 40 mg PO DAILY #15 tablet 05/09/21 [Rx] Montelukast Sodium 10 mg PO DAILY #10 tablet 06/16/21 [Rx] Past Medical History - Past Health History Medical/Surgical History: Denies Medical/Surgical History Cardiovascular History: Reports: High Cholesterol, Hypertension Respiratory History: Reports: Asthma Other Respiratory History: chronic smoker since she was 14 years old. 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 Endocrine/Metabolic History: Reports: Diabetes, Type II, Obesity/BMI 30+ Hematologic History: Reports: None Oncologic (Cancer) History: Reports: None Dermatologic History: Reports: Other (See Below) Other Dermatologic History: allergic dermatitis - Past Surgical History Musculoskeletal Surgical History: Reports: Arthroscopic Knee, Carpal Tunnel, ORIF Other Musculoskeletal Surgeries/Procedures:: left ankle, right hand and wrist sx., right knee surgery Oncologic Surgical History: Reports: None Social & Family History - Family History Family Medical History: No Pertinent Family History - Caffeine Use Caffeine Use: Reports: None Other Caffeine Use: iced coffee. - Living Situation & Occupation Living situation: Reports: Single Occupation: Employed (Works at [employer]) ED ROS GENERAL - Review of Systems Review Of Systems: See Below Constitutional: Reports: No Symptoms HEENT: Reports: No Symptoms Respiratory: Reports: No Symptoms Cardiovascular: Reports: No Symptoms Endocrine: Reports: No Symptoms GI/Abdominal: Reports: No Symptoms : Reports: No Symptoms Musculoskeletal: Reports: Neck Pain Skin: Reports: No Symptoms Neurological: Reports: No Symptoms Psychiatric: Reports: No Symptoms Hematologic/Lymphatic: Reports: No Symptoms Immunologic: Reports: No Symptoms ED EXAM, GENERAL - Physical Exam Exam: See Below Exam Limited By: No Limitations General Appearance: Alert, WD/WN Respiratory/Chest: No Respiratory Distress Cardiovascular: Regular Rate, Rhythm Back Exam: Other (nonspecific tender L spine, no back spasm, SLR neg to 30 degrees) Neurological: Alert, Oriented, CN II-XII Intact, Normal Cognition Skin Exam: Other (wheals noted just above and below inguinal crease b/l, sparing elsewhere) Course - Vital Signs Last Recorded V/S: Last Vital Signs Temp 36.3 C 06/16/21 11:09 Pulse 82 06/16/21 11:09 Resp 20 06/16/21 11:09 BP 148/85 H 06/16/21 11:09 Pulse Ox 97 06/16/21 11:09 - Orders/Labs/Meds Meds: Medications Discontinued Medications Generic Name Dose Route Start Last Admin Trade Name Qi PRN Reason Stop Dose Admin Acetaminophen 1,000 mg 06/16/21 11:42 Acetaminophen 500 Mg Tab PO 06/16/21 11:43 ONETIME ONE Ketorolac Tromethamine 60 mg 06/16/21 11:42 Ketorolac 30 Mg/Ml Sdv IM 06/16/21 11:43 ONETIME ONE Metoclopramide HCl 10 mg 06/16/21 11:42 Metoclopramide Oral Soln 10 Mg/10 Ml Ud Cup PO 06/16/21 11:43 ONETIME ONE - Re-Assessments/Exams Free Text/Narrative Re-Assessment/Exam: 06/16/21 11:47 pt says she takes Magda and Zyrtec for chronic hives, cause uncertain, will add montelukast as a trial, do itch pt drove to grocery yesterday, says she felt okay, now with pain in back today c/w flare of DJD, not taken anti-inflammatories, no clinical evidence of neuropathy Departure - Departure Time of Disposition: 11:48 Disposition: Home, Self-Care 01 Condition: Good Clinical Impression: Osteoarthritis of lumbar spine, Chronic idiopathic urticaria - Discharge Information *PRESCRIPTION DRUG MONITORING PROGRAM REVIEWED*: Yes *COPY OF PRESCRIPTION DRUG MONITORING REPORT IN PATIENT YANN: No Prescriptions: Montelukast Sodium 10 mg PO DAILY #10 tablet Instructions: Hives, Chronic Back Pain Additional Instructions: For hives, continue Magda and Zyrtec. For hives, add montelukast 10 mg 1 tab daily for 10 days. For pain, take ibuprofen 200 mg 3 tabs and acetaminophen 325 mg 2 tabs 4 times a day for 2 days. For pain, use either a heating pad or moist heat in the tub or shower for 10 minutes every 2 hours. Sleep on a firm mattress. See your doctor in 1-2 days for further recommendations. Sepsis Event Note (ED) - Focused Exam Vital Signs: Vital Signs Temp Pulse Resp BP Pulse Ox 06/16/21 11:09 36.3 C 82 20 148/85 H 97
[2021-06-16] MEDS ORDERED: Metoclopramide Oral Soln 10 MG/10 ML UD Cup PO ONE (11:42)
[2021-06-16] MEDS ORDERED: Acetaminophen 500 MG Tab PO ONE (11:42)
[2021-06-16] MEDS ORDERED: Ketorolac 30 MG/ML SDV IM ONE (11:42)
[2021-06-16] MEDS ORDERED: Metoclopramide 10 MG Tab PO ONE (11:45)
== END 2021-06-16 12:40 | disposition home or self-care (01) ==
LOC: FB.ED 11:09
DX: L50.1 Idiopathic urticaria (principal); L50.8 Other urticaria; M47.816 Spondylosis without myelopathy or radiculopathy, lumbar region; I10 Essential (primary) hypertension; E78.00 Pure hypercholesterolemia, unspecified; E11.9 Type 2 diabetes mellitus without complications; E66.9 Obesity, unspecified; F17.200 Nicotine dependence, unspecified, uncomplicated; Z91.041 Radiographic dye allergy status; Z88.0 Allergy status to penicillin; Z79.82 Long term (current) use of aspirin; Z79.4 Long term (current) use of insulin; Z79.899 Other long term (current) drug therapy
CPT/HCPCS: 96372; 99284; A9270; J1885

== ENCOUNTER 2021-06-17 08:11 | Emergency (ER) | payer MEDICARE, MEDICAID ==
[2021-06-17] MEDS ORDERED: Cyclobenzaprine 10 MG Tab PO STA (08:22)
[2021-06-17] MEDS ORDERED: Ketorolac 30 MG/ML SDV IM STA (08:22)
[2021-06-17] MEDS ORDERED: Acetaminophen/oxyCODONE 325-5 MG Tab PO STA (08:22)
[2021-06-17] MEDS ORDERED: predniSONE 20 MG Tab PO STA (08:22)
--- NOTE | 2021-06-17 08:46 | EDM.PDOC ---
ED HPI GENERAL MEDICAL PROBLEM - General Chief Complaint: Back Pain or Injury Time Seen by Provider: 06/17/21 08:15 Source of Information: Reports: Patient History Limitations: Reports: No Limitations - History of Present Illness INITIAL COMMENTS - FREE TEXT/NARRATIVE: Patient presented to the ED because of low back pain. She has a history of DDD of the lumbar spine and is taking Lyrica, oxycodone, tramadol but ran out out of her prescriptions. She was given Toradol 60 mg IM x1 ad tylenol 1000 mg PO x1 for her pain. She said it didn't help at all with her pain. She describe her pain as sharp,10/10 radiating to her left buttock. Left Hip Pain Score (Numeric/FACES): 10 - Related Data Allergies Allergy/AdvReac Type Severity Reaction Status Date / Time Iodinated Contrast Media Allergy Hives Verified 06/16/21 11:16 [Iodinated Contrast- Oral and IV Dye] Penicillins Allergy Hives Verified 06/16/21 11:16 Home Meds: Home Meds Divalproex Sodium [Divalproex Sodium ER] 500 mg PO DAILY 12/09/18 [History] Doxepin [SINEquan] 10 - 30 mg PO Q6H PRN 12/09/18 [History] atorvaSTATin [Lipitor] 40 mg PO BEDTIME 12/09/18 [History] risperiDONE [Risperdal] 4 mg PO BEDTIME 12/09/18 [History] Aspirin [Halfprin] 81 mg PO DAILY 04/07/19 [History] Nitroglycerin 0.4 mg SL ASDIRECTED PRN 05/15/19 [History] Insulin Aspart [NovoLOG] 5 units SQ TID 02/29/20 [History] Insulin Detemir [Levemir] 20 unit SUBCUT DAILY 02/29/20 [History] Insulin Detemir [Levemir] 40 units SQ BEDTIME 02/29/20 [History] Terconazole [Terazol 7 Vaginal Crm] 1 appful DAILY 02/29/20 [History] Sulfamethoxazole/Trimethoprim [Sulfamethoxazole-Tmp Ds Tablet] 1 each PO BID #5 tablet 01/18/21 [Rx] Levocetirizine Dihydrochloride [Xyzal] 5 mg PO DAILY 04/26/21 [History] Cyclobenzaprine [Flexeril] 10 mg PO TID PRN #30 tab 06/24/21 [Rx] Ibuprofen 800 mg PO Q8H PRN #30 tablet 05/09/21 [Rx] predniSONE [Prednisone] 40 mg PO DAILY #15 tablet 05/09/21 [Rx] Montelukast Sodium 10 mg PO DAILY #10 tablet 06/16/21 [Rx] Cyclobenzaprine [Flexeril] 10 mg PO Q8H PRN #15 tab 06/17/21 [Rx] traMADol [Ultram] 100 mg PO Q8H PRN #15 tab 06/17/21 [Rx] Past Medical History - Past Health History Medical/Surgical History: Denies Medical/Surgical History Cardiovascular History: Reports: High Cholesterol, Hypertension Respiratory History: Reports: Asthma Other Respiratory History: chronic smoker since she was 14 years old. 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 Endocrine/Metabolic History: Reports: Diabetes, Type II, Obesity/BMI 30+ Hematologic History: Reports: None Oncologic (Cancer) History: Reports: None Dermatologic History: Reports: Other (See Below) Other Dermatologic History: allergic dermatitis - Infectious Disease History Other Infectious Disease History: patient doesn't remember - Past Surgical History Female Surgical History: Reports: Other (See Below) Musculoskeletal Surgical History: Reports: Arthroscopic Knee, Carpal Tunnel, ORIF Other Musculoskeletal Surgeries/Procedures:: left ankle, right hand and wrist sx., right knee surgery Oncologic Surgical History: Reports: None Social & Family History - Family History Family Medical History: No Pertinent Family History - Tobacco Use Tobacco Use Status *Q: Current Every Day Tobacco User Years of Tobacco use: 40 Packs/Tins Daily: 1 - Caffeine Use Caffeine Use: Reports: None Other Caffeine Use: iced coffee. - Recreational Drug Use Recreational Drug Use: No - Living Situation & Occupation Living situation: Reports: Single Occupation: Employed (Works at [employer]) ED ROS GENERAL - Review of Systems Review Of Systems: See Below Constitutional: Reports: No Symptoms HEENT: Reports: No Symptoms Respiratory: Reports: No Symptoms Cardiovascular: Reports: No Symptoms Endocrine: Reports: No Symptoms GI/Abdominal: Reports: No Symptoms : Reports: No Symptoms Musculoskeletal: Reports: Back Pain Skin: Reports: No Symptoms Neurological: Reports: No Symptoms Psychiatric: Reports: No Symptoms Hematologic/Lymphatic: Reports: No Symptoms ED EXAM,LOWER BACK PAIN/INJURY - Physical Exam Exam: See Below Exam Limited By: No Limitations General Appearance: Alert, No Apparent Distress Eye Exam: Bilateral Eye: Periorbital Changes Ears: Normal External Exam, Normal Canal Nose: Normal Inspection, Normal Mucosa, No Blood Throat/Mouth: Normal Inspection, Normal Lips, Normal Teeth Head: Atraumatic, Normocephalic Neck: Normal Inspection, Supple, Non-Tender, Full Range of Motion Respiratory/Chest: No Respiratory Distress, Lungs Clear, Normal Breath Sounds Cardiovascular: Normal Peripheral Pulses, Regular Rate, Rhythm, No Edema, No G allop, No JVD, No Murmur, No Rub GI/Abdominal: Normal Bowel Sounds, Soft, Non-Tender, No Organomegaly Back Exam: Muscle Spasm, Vertebral Tenderness Extremities: Normal Inspection, Normal Range of Motion, Non-Tender Neurological: Alert, Normal Mood/Affect, Normal Dorsiflexion, CN II-XII Intact Course - Vital Signs Text/Narrative:: Toradol 60 mg IM x1 Percocet 5mg, 2 po x1 Flexeril 10 mg PO x1 Prednisone 40 mg PO x1 Last Recorded V/S: Last Vital Signs Temp 36.6 C 06/17/21 08:12 Pulse 90 06/17/21 08:12 Resp 20 06/17/21 08:12 BP 220/109 H 06/17/21 08:12 Pulse Ox 94 L 06/17/21 08:12 - Orders/Labs/Meds Meds: Medications Discontinued Medications Generic Name Dose Route Start Last Admin Trade Name Didierq PRN Reason Stop Dose Admin Cyclobenzaprine HCl 10 mg 06/17/21 08:22 06/17/21 08:35 Cyclobenzaprine 10 Mg Tab PO 06/17/21 08:23 10 mg NOW STA Administration Ketorolac Tromethamine 60 mg 06/17/21 08:22 06/17/21 08:34 Ketorolac 30 Mg/Ml Sdv IM 06/17/21 08:23 60 mg NOW STA Administration Oxycodone/Acetaminophen 2 tab 06/17/21 08:22 06/17/21 08:35 Acetaminophen/Oxycodone 325-5 Mg Tab PO 06/17/21 08:23 2 tab NOW STA Administration Prednisone 40 mg 06/17/21 08:22 06/17/21 08:35 Prednisone 20 Mg Tab PO 06/17/21 08:23 40 mg NOW STA Administration Departure - Departure Time of Disposition: 09:15 Disposition: Home, Self-Care 01 Condition: Good Clinical Impression: Chronic low back pain, Sciatica, DDD (degenerative disc disease), lumbar - Discharge Information Prescriptions: Cyclobenzaprine [Flexeril] 10 mg PO Q8H PRN #15 tab PRN Reason: Spasms traMADol [Ultram] 100 mg PO Q8H PRN #15 tab PRN Reason: Pain Instructions: Sciatica, [id number], Degenerative Disk Disease, Chronic Back Pain, [id number] Forms: ED Department Discharge Additional Instructions: Please read discharge instructions on chronic low back pain and sciatica Continue your present medications Take all the following medications at the same time for better pain relief: Tramadol 100 mg, tylenol 1000 mg, ibuprofen 800 mg and Flexeril 10 mg every 8 hours as needed for pain and spasm Call the [facility] [place] so you can see Dr Becerra tomorrow Keep your appointment to see your doctor today so you can get help Ask your doctor if he can refer you to see a spine/pain specialist to treat your pain Sepsis Event Note (ED) - Evaluation Sepsis Screening Result: No Definite Risk - Focused Exam Vital Signs: Vital Signs Temp Pulse Resp BP Pulse Ox 06/17/21 08:12 36.6 C 90 20 220/109 H 94 L
== END 2021-06-17 09:20 | disposition home or self-care (01) ==
LOC: FB.ED 08:11
DX: M51.16 Intervertebral disc disorders with radiculopathy, lumbar region (principal); E78.00 Pure hypercholesterolemia, unspecified; I10 Essential (primary) hypertension; J45.909 Unspecified asthma, uncomplicated; E11.9 Type 2 diabetes mellitus without complications; F17.200 Nicotine dependence, unspecified, uncomplicated; E66.9 Obesity, unspecified; Z68.36 Body mass index [BMI] 36.0-36.9, adult; Z91.041 Radiographic dye allergy status; Z88.0 Allergy status to penicillin; Z79.899 Other long term (current) drug therapy; Z79.4 Long term (current) use of insulin; Z79.82 Long term (current) use of aspirin
CPT/HCPCS: 96372; 99284; A9270; J1885; J7512

== ENCOUNTER 2021-08-07 12:48 | Emergency (ER) | payer MEDICARE, MEDICAID ==
[2021-08-07] MEDS ORDERED: Acetaminophen/oxyCODONE 325-5 MG Tab PO STA (13:20)
[2021-08-07] MEDS ORDERED: Ketorolac 30 MG/ML SDV IM STA (13:20)
[2021-08-07] MEDS ORDERED: predniSONE 20 MG Tab PO STA (13:20)
--- NOTE | 2021-08-07 14:17 | EDM.PDOC ---
ED HPI GENERAL MEDICAL PROBLEM - General Chief Complaint: Back Pain or Injury Time Seen by Provider: 08/07/21 12:55 Source of Information: Reports: Patient History Limitations: Reports: No Limitations - History of Present Illness INITIAL COMMENTS - FREE TEXT/NARRATIVE: Patient presented to the ED because of low back pain radiating to the left buttock. She has a history of DDD and is supposed to have an MRI today but missed it. She rate her pain 10/10, worse with movement. Treatments UNCRATER: Reports: Other Medication(s) Other Treatments UNCRATER: flexeril - Related Data Allergies Allergy/AdvReac Type Severity Reaction Status Date / Time Iodinated Contrast Media Allergy Hives Verified 08/07/21 15:01 [Iodinated Contrast- Oral and IV Dye] Penicillins Allergy Hives Verified 08/07/21 15:01 Home Meds: Home Meds Divalproex Sodium [Divalproex Sodium ER] 500 mg PO DAILY 12/09/18 [History] Doxepin [SINEquan] 10 - 30 mg PO Q6H PRN 12/09/18 [History] atorvaSTATin [Lipitor] 40 mg PO BEDTIME 12/09/18 [History] risperiDONE [Risperdal] 4 mg PO BEDTIME 12/09/18 [History] Aspirin [Halfprin] 81 mg PO DAILY 04/07/19 [History] Nitroglycerin 0.4 mg SL ASDIRECTED PRN 05/15/19 [History] Insulin Aspart [NovoLOG] 5 units SQ TID 02/29/20 [History] Insulin Detemir [Levemir] 20 unit SUBCUT DAILY 02/29/20 [History] Insulin Detemir [Levemir] 40 units SQ BEDTIME 02/29/20 [History] Terconazole [Terazol 7 Vaginal Crm] 1 appful DAILY 02/29/20 [History] Sulfamethoxazole/Trimethoprim [Sulfamethoxazole-Tmp Ds Tablet] 1 each PO BID #5 tablet 01/18/21 [Rx] Levocetirizine Dihydrochloride [Xyzal] 5 mg PO DAILY 04/26/21 [History] Cyclobenzaprine [Flexeril] 10 mg PO TID PRN #30 tab 05/09/21 [Rx] Ibuprofen 800 mg PO Q8H PRN #30 tablet 05/09/21 [Rx] predniSONE [Prednisone] 40 mg PO DAILY #15 tablet 05/09/21 [Rx] Montelukast Sodium 10 mg PO DAILY #10 tablet 06/16/21 [Rx] Cyclobenzaprine [Flexeril] 10 mg PO Q8H PRN #15 tab 06/17/21 [Rx] traMADol [Ultram] 100 mg PO Q8H PRN #15 tab 06/17/21 [Rx] Cyclobenzaprine [Flexeril] 10 mg PO Q8H PRN #30 tab 08/07/21 [Rx] predniSONE [Prednisone] 40 mg PO DAILY #10 tablet 08/07/21 [Rx] traMADol [Ultram] 100 mg PO Q8H PRN #15 tab 08/07/21 [Rx] Past Medical History - Past Health History Medical/Surgical History: Denies Medical/Surgical History Cardiovascular History: Reports: High Cholesterol, Hypertension Respiratory History: Reports: Asthma Other Respiratory History: chronic smoker since she was 14 years old. 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 Endocrine/Metabolic History: Reports: Diabetes, Type II, Obesity/BMI 30+ Hematologic History: Reports: None Oncologic (Cancer) History: Reports: None Dermatologic History: Reports: Other (See Below) Other Dermatologic History: allergic dermatitis - Infectious Disease History Other Infectious Disease History: patient doesn't remember - Past Surgical History Respiratory Surgical History: Reports: None Musculoskeletal Surgical History: Reports: Arthroscopic Knee, Carpal Tunnel, ORIF Other Musculoskeletal Surgeries/Procedures:: left ankle, right hand and wrist sx., right knee surgery Oncologic Surgical History: Reports: None Social & Family History - Family History Family Medical History: No Pertinent Family History - Tobacco Use Tobacco Use Status *Q: Light Tobacco User Years of Tobacco use: 45 Packs/Tins Daily: 0.5 Used Tobacco, but Quit: No - Caffeine Use Caffeine Use: Reports: Soda Other Caffeine Use: iced coffee. - Recreational Drug Use Recreational Drug Use: No - Living Situation & Occupation Living situation: Reports: Single Occupation: Employed (Works at [employer]) ED ROS GENERAL - Review of Systems Review Of Systems: See Below Constitutional: Reports: No Symptoms HEENT: Reports: No Symptoms Respiratory: Reports: No Symptoms Cardiovascular: Reports: No Symptoms Endocrine: Reports: No Symptoms GI/Abdominal: Reports: No Symptoms : Reports: No Symptoms Musculoskeletal: Reports: Back Pain, Muscle Pain, Muscle Stiffness Skin: Reports: No Symptoms Neurological: Reports: No Symptoms Psychiatric: Reports: No Symptoms Hematologic/Lymphatic: Reports: No Symptoms Immunologic: Reports: No Symptoms ED EXAM,LOWER BACK PAIN/INJURY - Physical Exam Exam: See Below Exam Limited By: No Limitations General Appearance: Alert, No Apparent Distress Ears: Normal External Exam, Normal Canal, Hearing Grossly Normal Nose: Normal Inspection, Normal Mucosa, No Blood Throat/Mouth: Normal Inspection, Normal Lips, Normal Teeth, Normal Gums, Normal Oropharynx, Normal Voice Head: Atraumatic, Normocephalic Neck: Normal Inspection, Supple, Non-Tender, Full Range of Motion Respiratory/Chest: No Respiratory Distress, Lungs Clear, Normal Breath Sounds, No Accessory Muscle Use, Chest Non-Tender Cardiovascular: Normal Peripheral Pulses, Regular Rate, Rhythm, No Edema, No Gallop, No JVD, No Murmur, No Rub GI/Abdominal: Normal Bowel Sounds, Soft, Non-Tender, No Organomegaly, No Distention, No Abnormal Bruit, No Mass, Pelvis Stable Back Exam: Decreased Range of Motion, Muscle Spasm, Paraspinal Tenderness, Vertebral Tenderness Extremities: Normal Inspection, Normal Range of Motion, Non-Tender, No Pedal Edema, Normal Capillary Refill Neurological: Alert, Normal Mood/Affect Psychiatric: Normal Affect, Normal Mood Skin Exam: Warm, Intact Course - Vital Signs Text/Narrative:: Toradol 60 mg IM x1 Percocet 5/325, 2 PO x1 Prednisone 40 mg PO x1 Last Recorded V/S: Last Vital Signs Temp 36.8 C 08/07/21 12:53 Pulse 86 08/07/21 14:35 Resp 16 08/07/21 14:35 BP 140/78 08/07/21 14:35 Pulse Ox 97 08/07/21 14:35 - Orders/Labs/Meds Meds: Medications Discontinued Medications Generic Name Dose Route Start Last Admin Trade Name Freq PRN Reason Stop Dose Admin Ketorolac Tromethamine 60 mg 08/07/21 13:20 08/07/21 13:32 Ketorolac 30 Mg/Ml Sdv IM 08/07/21 13:21 60 mg NOW STA Administration Oxycodone/Acetaminophen 2 tab 08/07/21 13:20 08/07/21 13:37 Acetaminophen/Oxycodone 325-5 Mg Tab PO 08/07/21 13:21 2 tab NOW STA Administration Prednisone 40 mg 08/07/21 13:20 08/07/21 13:37 Prednisone 20 Mg Tab PO 08/07/21 13:21 40 mg NOW STA Administration Departure - Departure Time of Disposition: 14:20 Disposition: Home, Self-Care 01 Condition: Good Clinical Impression: Chronic low back pain, DDD (degenerative disc disease) - Discharge Information Prescriptions: Cyclobenzaprine [Flexeril] 10 mg PO Q8H PRN #30 tab PRN Reason: Spasms predniSONE [Prednisone] 40 mg PO DAILY #10 tablet traMADol [Ultram] 100 mg PO Q8H PRN #15 tab PRN Reason: Pain Instructions: Degenerative Disk Disease, Chronic Back Pain, [id number] Referrals: Skip Becerra MD [Primary Care Provider] - Forms: ED Department Discharge Additional Instructions: Please read discharge instructions on DDD and Chronic Low back pain Take all the following medications at the same for better pain relief: Flexeril, tramadol 100 mg, Tylenol 1000 every 8 hours as needed for pain/spasm Prednisone 40 mg daily for 5 days starting tomorrow Keep you appointment for an MRI Sepsis Event Note (ED) - Focused Exam Vital Signs: Vital Signs Temp Pulse Resp BP Pulse Ox 08/07/21 14:35 86 16 140/78 97 08/07/21 12:53 36.8 C 98 18 143/76 H 96
== END 2021-08-07 14:55 | disposition home or self-care (01) ==
LOC: FB.ED 12:48
DX: M51.36 Other intervertebral disc degeneration, lumbar region (principal); E78.00 Pure hypercholesterolemia, unspecified; I10 Essential (primary) hypertension; J45.909 Unspecified asthma, uncomplicated; K21.9 Gastro-esophageal reflux disease without esophagitis; E11.9 Type 2 diabetes mellitus without complications; E66.9 Obesity, unspecified; Z68.30 Body mass index [BMI] 30.0-30.9, adult; Z91.041 Radiographic dye allergy status; Z88.0 Allergy status to penicillin; Z79.899 Other long term (current) drug therapy
CPT/HCPCS: 96372; 99284; A9270-GY; J1885; J7512

== ENCOUNTER 2021-09-01 16:57 | Emergency (ER) | payer MEDICARE, MEDICAID ==
[2021-09-01] MEDS ORDERED: Nitroglycerin 0.4 MG Tab.SL SL ONE (18:02)
[2021-09-01] MEDS ORDERED: Loratadine 10 MG Tab PO ONE (18:39)
[2021-09-01] MEDS ORDERED: Famotidine 20 MG/2 ML SDV IVPUSH ONE (18:39)
[2021-09-01] MEDS ORDERED: diphenhydrAMINE 50 MG/ML SDV IVPUSH ONE (18:39)
[2021-09-01] MEDS ORDERED: methylPREDNISolone Sodium Succinate 125 MG/2 ML SDV IVPUSH ONE (18:39)
[2021-09-01] MEDS ORDERED: Iopamidol 755 Mg/ML 100 ML Bottle IV ONE (18:59)
--- NOTE | 2021-09-01 19:07 | EDM.PDOC ---
ED HPI GENERAL MEDICAL PROBLEM - General Chief Complaint: Chest Pain Stated Complaint: CHEST PAIN Time Seen by Provider: 09/01/21 17:05 Source of Information: Reports: Patient History Limitations: Reports: No Limitations - History of Present Illness INITIAL COMMENTS - FREE TEXT/NARRATIVE: c/o nonspecific CP at home x 30 min home today, sitting down and had discomfort in her chest, no n/v, no f/c/d, no sob/cough has had one COVID vax, waiting for second, has had COVID illness HR 81 on arrival, EKG with LVH changes that were old, initial trop neg pt with unexpected inc'd d-dimer 10x ULN with CRP 2x ULN, explanation unclear will obtain chest CTA, [facility] says pt has had hives with iodine dye, however pt says she remembers itching many years ago, does not remember hives as pt at high risk for PE, will pretreat chest CTA with 4 meds, pt agrees as pt also at risk for COVID in context of inc'd d-dimer/CRP, will test for COVID Chest Pain Score (Numeric/FACES): 8 - Related Data Allergies Allergy/AdvReac Type Severity Reaction Status Date / Time Iodinated Contrast Media Allergy Hives Verified 09/01/21 17:34 [Iodinated Contrast- Oral and IV Dye] Penicillins Allergy Hives Verified 09/01/21 17:34 Home Meds: Home Meds Divalproex Sodium [Divalproex Sodium ER] 500 mg PO DAILY 12/09/18 [History] Doxepin [SINEquan] 10 - 30 mg PO Q6H PRN 12/09/18 [History] atorvaSTATin [Lipitor] 40 mg PO BEDTIME 12/09/18 [History] risperiDONE [Risperdal] 4 mg PO BEDTIME 12/09/18 [History] Aspirin [Halfprin] 81 mg PO DAILY 04/07/19 [History] Nitroglycerin 0.4 mg SL ASDIRECTED PRN 05/15/19 [History] Insulin Aspart [NovoLOG] 5 units SQ TID 02/29/20 [History] Insulin Detemir [Levemir] 20 unit SUBCUT DAILY 02/29/20 [History] Insulin Detemir [Levemir] 40 units SQ BEDTIME 02/29/20 [History] Terconazole [Terazol 7 Vaginal Crm] 1 appful DAILY 02/29/20 [History] Sulfamethoxazole/Trimethoprim [Sulfamethoxazole-Tmp Ds Tablet] 1 each PO BID #5 tablet 01/18/21 [Rx] Levocetirizine Dihydrochloride [Xyzal] 5 mg PO DAILY 04/26/21 [History] Cyclobenzaprine [Flexeril] 10 mg PO TID PRN #30 tab 05/09/21 [Rx] Ibuprofen 800 mg PO Q8H PRN #30 tablet 05/09/21 [Rx] predniSONE [Prednisone] 40 mg PO DAILY #15 tablet 05/09/21 [Rx] Montelukast Sodium 10 mg PO DAILY #10 tablet 06/16/21 [Rx] Cyclobenzaprine [Flexeril] 10 mg PO Q8H PRN #15 tab 06/17/21 [Rx] traMADol [Ultram] 100 mg PO Q8H PRN #15 tab 06/17/21 [Rx] Cyclobenzaprine [Flexeril] 10 mg PO Q8H PRN #30 tab 08/07/21 [Rx] predniSONE [Prednisone] 40 mg PO DAILY #10 tablet 08/07/21 [Rx] traMADol [Ultram] 100 mg PO Q8H PRN #15 tab 08/07/21 [Rx] Past Medical History - Past Health History Medical/Surgical History: Denies Medical/Surgical History Cardiovascular History: Reports: High Cholesterol, Hypertension Respiratory History: Reports: Asthma Other Respiratory History: chronic smoker since she was 14 years old. 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 Endocrine/Metabolic History: Reports: Diabetes, Type II, Obesity/BMI 30+ Hematologic History: Reports: None Oncologic (Cancer) History: Reports: None Dermatologic History: Reports: Other (See Below) Other Dermatologic History: allergic dermatitis - Infectious Disease History Other Infectious Disease History: patient doesn't remember - Past Surgical History Respiratory Surgical History: Reports: None Musculoskeletal Surgical History: Reports: Arthroscopic Knee, Carpal Tunnel, ORIF Other Musculoskeletal Surgeries/Procedures:: left ankle, right hand and wrist sx., right knee surgery Oncologic Surgical History: Reports: None Social & Family History - Family History Family Medical History: No Pertinent Family History - Caffeine Use Caffeine Use: Reports: Soda Other Caffeine Use: iced coffee. - Living Situation & Occupation Living situation: Reports: Single Occupation: Employed (Works at [employer]) ED ROS GENERAL - Review of Systems Review Of Systems: See Below Constitutional: Reports: No Symptoms. Denies: Fever, Chills, Malaise, Weakness HEENT: Reports: No Symptoms Respiratory: Reports: No Symptoms Cardiovascular: Reports: Chest Pain Endocrine: Reports: No Symptoms GI/Abdominal: Reports: No Symptoms. Denies: Abdominal Pain, Nausea, Vomiting : Reports: No Symptoms Musculoskeletal: Reports: No Symptoms Skin: Reports: No Symptoms Neurological: Reports: No Symptoms Psychiatric: Reports: No Symptoms Hematologic/Lymphatic: Reports: No Symptoms Immunologic: Reports: No Symptoms ED EXAM, GENERAL - Physical Exam Exam: See Below Exam Limited By: No Limitations General Appearance: Alert, WD/WN, No Apparent Distress Ears: Hearing Grossly Normal Nose: Normal Inspection Throat/Mouth: Normal Voice, No Airway Compromise Head: Atraumatic, Normocephalic Neck: Normal Inspection, Supple, Non-Tender, Full Range of Motion. No: Lymphadenopathy (R), Lymphadenopathy (L) Respiratory/Chest: No Respiratory Distress, Lungs Clear, Normal Breath Sounds, No Accessory Muscle Use, Other (1+ tender across upper chest b/l, nonlocalized, winces to palpation of ribs) Cardiovascular: Regular Rate, Rhythm, No Edema, No Gallop, No Murmur GI/Abdominal: Normal Bowel Sounds, Soft, Non-Tender, No Distention, Other (no epigastric tender) Back Exam: Normal Inspection, Full Range of Motion. No: CVA Tenderness (R), CVA Tenderness (L) Extremities: Normal Inspection, Normal Range of Motion, Non-Tender, Other (trace pretib edema) Neurological: Alert, Oriented, CN II-XII Intact, Normal Cognition, No Motor/Sensory Deficits Psychiatric: Normal Affect, Normal Mood Skin Exam: Warm, Dry, Intact, Normal Color, No Rash Lymphatic: No Adenopathy #1 Interpretation EKG Date: 09/01/21 Time: 17:01 Rhythm: NSR [place]: Normal P-Wave: Present QRS: Normal ST-T: Normal (LVH pattern present on EKG, as before, no acute or ischemic changes) Course - Vital Signs Last Recorded V/S: Last Vital Signs Temp 36.8 C 09/01/21 16:57 Pulse 80 09/01/21 16:57 Resp 18 09/01/21 16:57 BP 119/72 09/01/21 18:14 Pulse Ox 96 09/01/21 16:57 - Orders/Labs/Meds Orders: Active Orders 24 hr Category Date Time Status Ang Chest [CT] Stat Exams 09/01/21 18:29 Taken CORONAVIRUS COVID-19 NAKIA [MOLEC] Stat Lab 09/01/21 18:29 Ordered UA W/MICROSCOPIC [URIN] Stat Lab 09/01/21 18:29 Ordered EKG 12 Lead [EK] Routine Ther 09/01/21 17:34 Ordered Labs: Laboratory Tests 09/01/21 09/01/21 09/01/21 Range/Units 17:40 17:40 17:40 WBC 8.3 (3.0-10.3) x10-3/uL RBC 4.42 (3.60-5.20) x10(6)uL Hgb 13.6 (11.4-15.5) g/dL Hct 41.5 (34.2-48.2) % MCV 94.1 (76.7-100.5) fL MCH 30.8 (23.9-33.9) pg MCHC 32.8 (31.9-34.8) g/dL RDW 12.8 (12.3-16.5) % Plt Count 232 (151-488) x10(3)uL MPV 8.7 (7.1-12.4) fL Neut % (Auto) 51.4 (30.8-76.2) % Lymph % (Auto) 41.2 (18.4-52.1) % [place] % (Auto) 5.5 (4.4-15.7) % Eos % (Auto) 0.8 (0.6-8.1) % Baso % (Auto) 1.1 (0.2-1.5) % Neut # (Auto) 4.3 (1.5-6.3) x10-3/uL Lymph # (Auto) 3.4 (1.0-4.4) x10-3/uL [place] # (Auto) 0.5 (0.3-1.0) x10-3/uL Eos # (Auto) 0.1 (0.0-0.8) x10-3/uL Baso # (Auto) 0.1 (0.0-0.1) x10-3/uL D-Dimer, Quantitative 6.64 H (0.0-0.59) mg/LFEU Sodium 144 (135-145) mmol/L Potassium 4.0 (3.5-5.3) mmol/L Chloride 109 D (100-110) mmol/L Carbon Dioxide 30 (21-32) mmol/L BUN 11 (7-18) mg/dL Creatinine 0.9 (0.55-1.02) mg/dL Est Cr Clr Drug Dosing TNP Estimated GFR (MDRD) > 60 (>60) BUN/Creatinine Ratio 12.2 (9-20) Glucose 151 H D (80-116) mg/dL Calcium 8.9 (8.6-10.2) mg/dL Total Bilirubin 0.3 (0.1-1.3) mg/dL AST 18 D (5-25) IU/L ALT 33 D (12-36) U/L Alkaline Phosphatase 88 (56-112) IU/L Troponin I (4.0-60.3) pg/mL C-Reactive Protein (0.5-0.9) mg/dL Total Protein 7.1 (6.0-8.0) g/dL Albumin 3.2 L (3.5-5.2) g/dL Globulin 3.9 g/dL Albumin/Globulin Ratio 0.8 09/01/21 09/01/21 Range/Units 17:40 19:40 WBC (3.0-10.3) x10-3/uL RBC (3.60-5.20) x10(6)uL Hgb (11.4-15.5) g/dL Hct (34.2-48.2) % MCV (76.7-100.5) fL MCH (23.9-33.9) pg MCHC (31.9-34.8) g/dL RDW (12.3-16.5) % Plt Count (151-488) x10(3)uL MPV (7.1-12.4) fL Neut % (Auto) (30.8-76.2) % Lymph % (Auto) (18.4-52.1) % [place] % (Auto) (4.4-15.7) % Eos % (Auto) (0.6-8.1) % Baso % (Auto) (0.2-1.5) % Neut # (Auto) (1.5-6.3) x10-3/uL Lymph # (Auto) (1.0-4.4) x10-3/uL [place] # (Auto) (0.3-1.0) x10-3/uL Eos # (Auto) (0.0-0.8) x10-3/uL Baso # (Auto) (0.0-0.1) x10-3/uL D-Dimer, Quantitative (0.0-0.59) mg/LFEU Sodium (135-145) mmol/L Potassium (3.5-5.3) mmol/L Chloride (100-110) mmol/L Carbon Dioxide (21-32) mmol/L BUN (7-18) mg/dL Creatinine (0.55-1.02) mg/dL Est Cr Clr Drug Dosing Estimated GFR (MDRD) (>60) BUN/Creatinine Ratio (9-20) Glucose (80-116) mg/dL Calcium (8.6-10.2) mg/dL Total Bilirubin (0.1-1.3) mg/dL AST (5-25) IU/L ALT (12-36) U/L Alkaline Phosphatase (56-112) IU/L Troponin I 23.1 23.5 (4.0-60.3) pg/mL C-Reactive Protein 2.3 H (0.5-0.9) mg/dL Total Protein (6.0-8.0) g/dL Albumin (3.5-5.2) g/dL Globulin g/dL Albumin/Globulin Ratio Meds: Medications Discontinued Medications Generic Name Dose Route Start Last Admin Trade Name Freq PRN Reason Stop Dose Admin Diphenhydramine HCl 50 mg 09/01/21 18:39 09/01/21 19:00 Diphenhydramine 50 Mg/Ml Sdv IVPUSH 09/01/21 18:40 50 mg ONETIME ONE Administration Famotidine 20 mg 09/01/21 18:39 09/01/21 19:06 Famotidine 20 Mg/2 Ml Sdv IVPUSH 09/01/21 18:40 20 mg ONETIME ONE Administration Iopamidol 85 ml 09/01/21 18:59 Iopamidol 755 Mg/Ml 100 Ml Bottle IV 09/01/21 19:00 . DIRECTED ONE Ketorolac Tromethamine 30 mg 09/01/21 19:55 09/01/21 20:00 Ketorolac 30 Mg/Ml Sdv IVPUSH 09/01/21 19:56 30 mg ONETIME ONE Administration Loratadine 10 mg 09/01/21 18:39 09/01/21 18:59 Loratadine 10 Mg Tab PO 09/01/21 18:40 10 mg ONETIME ONE Administration Methylprednisolone Sodium Succinate 125 mg 09/01/21 18:39 09/01/21 19:00 Methylprednisolone Sodium Succinate 125 Mg/2 Ml Sdv IVPUSH 09/01/21 18:40 125 mg ONETIME ONE Administration Nitroglycerin 0.4 mg 09/01/21 18:02 09/01/21 18:14 Nitroglycerin 0.4 Mg Tab.Sl SL 09/01/21 18:03 0.4 mg ONETIME ONE Administration - Re-Assessments/Exams Free Text/Narrative Re-Assessment/Exam: 09/01/21 22:31 pt likely has COVID pneumonia (malaise, ground glass opacities at bases of lungs, inc'd d-dimer/CRP, normal CBC) however pt has refused a COVID swab and could not be dissuaded did agree to quarantine for 10 days does not meet criteria for antibiotic (normal CBC, bilateral ground glass opacities) pt likely with partial immunity to COVID from prior infection and one COVID vax trop x 2 neg, may need additional CV evaluation Departure - Departure Time of Disposition: 22:28 Disposition: Home, Self-Care 01 Condition: Good Clinical Impression: Ground glass opacity present on imaging of lung, Elevated C-reactive protein (CRP), Elevated d-dimer Instructions: COVID-19: Quarantine vs. Isolation - [facility] (11/01/2020) Forms: ED Department Discharge, ED Return to Work/School Form Additional Instructions: Based on the CT scan and lab tests, it is likely that you have had COVID again even though you have had one of the COVID vaccines. You should quarantine at home for the next 10 days. For pain and inflammation, take acetaminophen 500 mg 2 tabs and/or ibuprofen 200 mg 3 tabs 4 times a day for 10 days. Maintain fluids. Get adequate rest. No work for 10 days. See your doctor in 10 days for repeat blood work (CBC, d-dimer, CRP). Return to Emergency Department if you are feeling worse. Sepsis Event Note (ED) - Focused Exam Vital Signs: Vital Signs Temp Pulse Resp BP BP Pulse Ox 09/01/21 18:14 119/72 09/01/21 16:57 36.8 C 80 18 156/82 H 96 - My Orders Last 24 Hours: My Active Orders 09/01/21 17:34 EKG 12 Lead [EK] Routine 09/01/21 18:29 Ang Chest [CT] Stat CORONAVIRUS COVID-19 NAKIA [MOLEC] Stat UA W/MICROSCOPIC [URIN] Stat - Assessment/Plan Last 24 Hours: My Active Orders 09/01/21 17:34 EKG 12 Lead [EK] Routine 09/01/21 18:29 Ang Chest [CT] Stat CORONAVIRUS COVID-19 NAKIA [MOLEC] Stat UA W/MICROSCOPIC [URIN] Stat
[2021-09-01] MEDS ORDERED: Ketorolac 30 MG/ML SDV IVPUSH ONE (19:55)
== END 2021-09-01 22:40 | disposition home or self-care (01) ==
LOC: FB.ED 16:57
DX: R79.1 Abnormal coagulation profile (principal); R79.82 Elevated C-reactive protein (CRP); R91.8 Other nonspecific abnormal finding of lung field; E78.00 Pure hypercholesterolemia, unspecified; I10 Essential (primary) hypertension; J45.909 Unspecified asthma, uncomplicated; E11.9 Type 2 diabetes mellitus without complications; F17.200 Nicotine dependence, unspecified, uncomplicated; E66.9 Obesity, unspecified; Z91.041 Radiographic dye allergy status; Z88.0 Allergy status to penicillin; Z79.82 Long term (current) use of aspirin; Z79.4 Long term (current) use of insulin; Z79.899 Other long term (current) drug therapy
CPT/HCPCS: 36415; 71275; 80053; 84484; 85025; 85379; 86140; 93005; 96374; 96375; 99285-25; A9270-GY; J1200; J1885; J2930; J3490; Q9967

== ENCOUNTER 2023-08-14 17:11 | Emergency (ER) | payer MEDICARE, MEDICAID ==
[2023-08-14] MEDS ORDERED: Sodium Chloride 0.9% 10 ML Syringe FLUSH PRN (17:55)
[2023-08-14] MEDS ORDERED: 50% Dextrose in Water 50 ML Syringe IVPUSH PRN (17:58)
[2023-08-14] MEDS ORDERED: Insulin Lispro 100 Unit/ML 3 ML KwikPen SUBCUT STA (17:58)
[2023-08-14] MEDS ORDERED: Glucagon,Human Recombinant 1 MG Vial IM PRN (17:58)
[2023-08-14] MEDS ORDERED: Sodium Chloride 0.9% 1,000 ML IV SCH (18:00)
[2023-08-14 18:16] LABS: BASOPHILS ABSOLUTE AUTO 0.1 x10-3/uL (0.0-0.1); EOSINOPHILS ABSOLUTE AUTO 0.1 x10-3/uL (0.0-0.8); HEMATOCRIT 39.5 % (34.2-48.2); LYMPHOCYTES ABSOLUTE AUTO 2.9 x10-3/uL (1.0-4.4); LYMPHOCYTES PERCENT AUTO 38.5 % (18.4-52.1); MEAN CORPUSCULAR HEMOGLOBIN 31.5 pg (23.9-33.9); MEAN CORPUSCULAR VOLUME 95.4 fL (76.7-100.5); MEAN PLATELET VOLUME 10.8 fL (7.1-12.4); MONOCYTES ABSOLUTE AUTO 0.4 x10-3/uL (0.3-1.0); MONOCYTES PERCENT AUTO 5.1 % (4.4-15.7); NEUTROPHILS ABSOLUTE AUTO 4.1 x10-3/uL (1.5-6.3); NEUTROPHILS PERCENT AUTO 54.4 % (30.8-76.2); PLATELET COUNT,PLT 179 x10(3)uL (151-488); RED BLOOD CELL COUNT 4.14 x10(6)uL (3.60-5.20); RED CELL DISTRIBUTION WIDTH 12.9 % (12.3-16.5); WHITE BLOOD CELL COUNT,WBC 7.6 x10-3/uL (3.0-10.3)
[2023-08-14 18:16] LABS: BASE EXCESS VENOUS,POC 1 mmol/L (-2 - 3+); PCO2 VENOUS,POC 37 mmHg (41-51); PH VENOUS,POC 7.44 pH Units (7.32-7.43)
[2023-08-14 18:23] LABS: A/G RATIO 0.8; ALANINE AMINOTRANSFERASE,ALT 27 U/L (12-36); ALBUMIN 3.4 g/dL (3.2-4.6); ALKALINE PHOSPHATASE 118 IU/L (56-112); ASPARTATE AMNIOTRANSFERASE,AST 16 IU/L (5-25); BILIRUBIN TOTAL 0.3 mg/dL (0.1-1.3); BLOOD UREA NITROGEN,BUN 13 mg/dL (7-18); BUN/CREATININE RATIO 14.4 (9-20); CALCIUM 9.3 mg/dL (8.6-10.2); CARBON DIOXIDE,CO2 27 mmol/L (21-32); CHLORIDE,CL 102 mmol/L (100-110); CREATININE 0.9 mg/dL (0.55-1.02); EST CRCL DRUG DOSING (CG) 63.83 mL/min; ESTIMATED GFR 73 mL/min (>60); POTASSIUM,K 4.7 mmol/L (3.5-5.3); PROTEIN TOTAL,TP 7.8 g/dL (6.0-8.0); SODIUM,NA 137 mmol/L (135-145)
[2023-08-14] MEDS ORDERED: Labetalol 20 MG/4 ML Syringe IVPUSH ONE (18:26)
[2023-08-14 18:29] LABS: GLUCOSE RANDOM 437 mg/dL (80-116); LACTIC ACID 2.3 mmol/L (0.4-2.0)
[2023-08-14] MEDS ORDERED: Insulin Lispro 100 Unit/ML 3 ML KwikPen SUBCUT ONE (18:31)
[2023-08-14] MEDS ORDERED: hydrALAZINE 20 MG/ML SDV IVPUSH ONE (19:01)
[2023-08-14] MEDS ORDERED: amLODIPine 10 MG Tab PO STA (19:02)
== END 2023-08-14 20:09 | disposition home or self-care (01) ==
LOC: FB.ED 17:11
DX: I16.9 Hypertensive crisis, unspecified (principal); E11.65 Type 2 diabetes mellitus with hyperglycemia; B37.31 Acute candidiasis of vulva and vagina; B00.9 Herpesviral infection, unspecified; E78.00 Pure hypercholesterolemia, unspecified; J45.909 Unspecified asthma, uncomplicated; K21.9 Gastro-esophageal reflux disease without esophagitis; E66.9 Obesity, unspecified; Z68.41 Body mass index [BMI] 40.0-44.9, adult; Z86.16 Personal history of COVID-19; Z79.899 Other long term (current) drug therapy; Z91.041 Radiographic dye allergy status; Z88.0 Allergy status to penicillin
CPT/HCPCS: 71045; 80053; 82947; 83605; 84484; 85025; 93005; 93010; 96361; 96374; 96375; 99284; 99285; A9270; J0360; J1815; J3490; J7030

== ENCOUNTER 2024-03-10 05:12 | Emergency (ER) | payer MEDICARE ==
[2024-03-10] MEDS ORDERED: Acetaminophen/oxyCODONE 325-5 MG Tab PO ONE (05:13)
[2024-03-10] MEDS: Ketorolac 30 MG/ML SDV IM ONE (05:43)
[2024-03-10] MEDS: Acetaminophen/oxyCODONE 325-5 MG Tab PO PRN (05:43)
== END 2024-03-10 07:04 | disposition home or self-care (01) ==
LOC: FB.ED 05:12
DX: E11.42 Type 2 diabetes mellitus with diabetic polyneuropathy (principal); J45.909 Unspecified asthma, uncomplicated; E78.00 Pure hypercholesterolemia, unspecified; E66.9 Obesity, unspecified; I10 Essential (primary) hypertension; F17.210 Nicotine dependence, cigarettes, uncomplicated; Z86.16 Personal history of COVID-19; Z68.41 Body mass index [BMI] 40.0-44.9, adult; Z79.4 Long term (current) use of insulin; Z79.82 Long term (current) use of aspirin; Z79.899 Other long term (current) drug therapy; Z88.0 Allergy status to penicillin; Z91.041 Radiographic dye allergy status
CPT/HCPCS: 99283; 99284; A9270-GY

== ENCOUNTER 2024-03-20 16:27 | Observation (INO) | payer MEDICARE ==
[2024-03-20] MEDS: Sodium Chloride 0.9% 1,000 ML IV ONE (18:04)
[2024-03-20 18:07] LABS: BASOPHILS ABSOLUTE AUTO 0.1 x10-3/uL (0.0-0.1); EOSINOPHILS ABSOLUTE AUTO 0.1 x10-3/uL (0.0-0.8); EOSINOPHILS PERCENT AUTO 0.6 % (0.6-8.1); HEMATOCRIT 40.6 % (34.2-48.2); HEMOGLOBIN 13.1 g/dL (11.4-15.5); LYMPHOCYTES ABSOLUTE AUTO 4.8 x10-3/uL (1.0-4.4); LYMPHOCYTES PERCENT AUTO 39.2 % (18.4-52.1); MEAN CORPUSCULAR HEMOGLOBIN 30.5 pg (23.9-33.9); MEAN CORPUSCULAR HGB CONC 32.2 g/dL (31.9-34.8); MEAN CORPUSCULAR VOLUME 94.8 fL (76.7-100.5); MEAN PLATELET VOLUME 9.8 fL (7.1-12.4); MONOCYTES ABSOLUTE AUTO 0.8 x10-3/uL (0.3-1.0); MONOCYTES PERCENT AUTO 6.3 % (4.4-15.7); NEUTROPHILS ABSOLUTE AUTO 6.5 x10-3/uL (1.5-6.3); NEUTROPHILS PERCENT AUTO 52.9 % (30.8-76.2); PLATELET COUNT,PLT 239 x10(3)uL (151-488); RED BLOOD CELL COUNT 4.28 x10(6)uL (3.60-5.20); RED CELL DISTRIBUTION WIDTH 13.3 % (12.3-16.5); WHITE BLOOD CELL COUNT,WBC 12.2 x10-3/uL (3.0-10.3)
[2024-03-20 18:14] LABS: BLOOD UREA NITROGEN,BUN 22 mg/dL (7-18); CALCIUM 9.3 mg/dL (8.6-10.2); CARBON DIOXIDE,CO2 27 mmol/L (21-32); CHLORIDE,CL 106 mmol/L (100-110); CREATININE 1.1 mg/dL (0.55-1.02); ESTIMATED GFR 57 mL/min (>60); GLUCOSE RANDOM 70 mg/dL (80-116); POTASSIUM,K 3.7 mmol/L (3.5-5.3); SODIUM,NA 144 mmol/L (135-145)
[2024-03-20 18:19] LABS: A/G RATIO 0.8; ALANINE AMINOTRANSFERASE,ALT 19 U/L (12-36); ALBUMIN 3.3 g/dL (3.2-4.6); ALKALINE PHOSPHATASE 90 IU/L (56-112); ASPARTATE AMNIOTRANSFERASE,AST 13 IU/L (5-25); BILIRUBIN TOTAL 0.4 mg/dL (0.1-1.3); MAGNESIUM 2.1 mg/dL (1.8-2.5); PROTEIN TOTAL,TP 7.7 g/dL (6.0-8.0)
[2024-03-20] MEDS: 50% Dextrose in Water 50 ML Syringe IVPUSH ONE (18:51)
[2024-03-20 20:31] LABS: BILIRUBIN,URINE NEGATIVE (NEGATIVE); GLUCOSE,URINE 50 mg/dL (NORMAL); KETONES,URINE NEGATIVE (NEGATIVE); LEUKOCYTE ESTERASE,URINE NEGATIVE (NEGATIVE); NITRITE,URINE NEGATIVE (NEGATIVE); OCCULT BLOOD,URINE NEGATIVE (NEGATIVE); PROTEIN,URINE 30 mg/dL (NEGATIVE); UROBILINOGEN,URINE NORMAL (NEGATIVE)
[2024-03-20 20:37] LABS: APPEARANCE,URINE CLEAR (CLEAR); BACTERIA,URINE FEW (NS); COLOR,URINE YELLOW (YELLOW); HYALINE CASTS,URINE FEW (NS); MUCUS,URINE FEW (NS); RBC,URINE 0-5 (0-5); SQUAMOUS EPITHELIAL CELLS,UR FEW (NS,R,O); WBC,URINE 0-5 (0-5)
[2024-03-20] MEDS ORDERED: Acetaminophen 325 MG Tab PO PRN (21:55)
[2024-03-20] MEDS ORDERED: Ondansetron 4 MG/2 ML SDV IV PRN (21:55)
[2024-03-20] MEDS: Sodium Chloride 0.9% 1,000 ML IV SCH (23:15)
[2024-03-20] MEDS: Sodium Chloride 0.9% 10 ML Syringe FLUSH PRN (23:17)
[2024-03-20] MEDS: Gabapentin 300 MG Cap PO ONE (23:54)
[2024-03-20] MEDS: rOPINIRole 1 MG Tab PO ONE (23:54)
[2024-03-21 06:47] LABS: BASOPHILS ABSOLUTE AUTO 0.1 x10-3/uL (0.0-0.1); BASOPHILS PERCENT AUTO 0.7 % (0.2-1.5); EOSINOPHILS ABSOLUTE AUTO 0.1 x10-3/uL (0.0-0.8); EOSINOPHILS PERCENT AUTO 0.8 % (0.6-8.1); HEMATOCRIT 39.9 % (34.2-48.2); HEMOGLOBIN 12.9 g/dL (11.4-15.5); LYMPHOCYTES ABSOLUTE AUTO 4.2 x10-3/uL (1.0-4.4); LYMPHOCYTES PERCENT AUTO 39.3 % (18.4-52.1); MEAN CORPUSCULAR HEMOGLOBIN 30.7 pg (23.9-33.9); MEAN CORPUSCULAR HGB CONC 32.3 g/dL (31.9-34.8); MONOCYTES ABSOLUTE AUTO 0.5 x10-3/uL (0.3-1.0); MONOCYTES PERCENT AUTO 4.7 % (4.4-15.7); NEUTROPHILS ABSOLUTE AUTO 5.9 x10-3/uL (1.5-6.3); NEUTROPHILS PERCENT AUTO 54.5 % (30.8-76.2); PLATELET COUNT,PLT 222 x10(3)uL (151-488); RED CELL DISTRIBUTION WIDTH 13.4 % (12.3-16.5); WHITE BLOOD CELL COUNT,WBC 10.7 x10-3/uL (3.0-10.3)
[2024-03-21 06:50] LABS: BLOOD UREA NITROGEN,BUN 16 mg/dL (7-18); BUN/CREATININE RATIO 17.8 (9-20); CALCIUM 8.6 mg/dL (8.6-10.2); CARBON DIOXIDE,CO2 25 mmol/L (21-32); CHLORIDE,CL 108 mmol/L (100-110); CREATININE 0.9 mg/dL (0.55-1.02); EST CRCL DRUG DOSING (CG) 63.83 mL/min; ESTIMATED GFR 73 mL/min (>60); GLUCOSE RANDOM 138 mg/dL (80-116); SODIUM,NA 142 mmol/L (135-145)
[2024-03-21] MEDS ORDERED: Glucagon,Human Recombinant 1 MG Vial IM PRN ×2 (11:15→11:25)
[2024-03-21] MEDS ORDERED: Albuterol 0.083% 2.5 MG/3 ML Neb Soln INH PRN (11:15)
[2024-03-21] MEDS ORDERED: 50% Dextrose in Water 50 ML Syringe IVPUSH PRN ×2 (11:15→11:25)
[2024-03-21] MEDS ORDERED: Triamcinolone Acetonide 0.1% Crm 15 GM Tube TOP PRN (11:15)
[2024-03-21] MEDS ORDERED: Non-Formulary Medication 1 Each (Epinephrine [Epipen] 0.3 MG/0.3 ML Pen) IM PRN (11:15)
[2024-03-21] MEDS ORDERED: Albuterol 6.7 GM Inhaler INH PRN (11:15)
[2024-03-21] MEDS ORDERED: TERBINAFINE TOP PRN (11:15)
[2024-03-21] MEDS ORDERED: Insulin Lispro 100 Unit/ML 3 ML KwikPen SUBCUT ONE (11:55)
[2024-03-21] MEDS: DULoxetine 30 MG Cap PO SCH (11:56)
[2024-03-21] MEDS: Insulin Lispro 100 Unit/ML 3 ML KwikPen SUBCUT SCH ×2 (11:56)
[2024-03-21] MEDS: Gabapentin 300 MG Cap PO SCH (11:56)
[2024-03-21] MEDS: Aspirin 81 MG Tab.EC PO SCH (11:56)
[2024-03-21] MEDS: Hydrochlorothiazide/Lisinopril 25-20 MG Tab PO SCH (17:11)
[2024-03-21] MEDS ORDERED: Insulin Glargine,Human Rec. Analog 100 Units/ML 3 ML Pen SUBCUT ONE (20:36)
[2024-03-21] MEDS: Insulin Glargine,Human Rec. Analog 100 Units/ML 3 ML Pen SUBCUT SCH (20:42)
[2024-03-21] MEDS: atorvaSTATin 40 MG Tab PO SCH (20:42)
[2024-03-21] MEDS: Gabapentin 600 MG Tab PO SCH (20:42)
[2024-03-22 07:12] LABS: BLOOD UREA NITROGEN,BUN 12 mg/dL (7-18); CALCIUM 8.9 mg/dL (8.6-10.2); CARBON DIOXIDE,CO2 28 mmol/L (21-32); CHLORIDE,CL 105 mmol/L (100-110); CREATININE 0.8 mg/dL (0.55-1.02); EST CRCL DRUG DOSING (CG) 71.81 mL/min; ESTIMATED GFR 84 mL/min (>60); GLUCOSE RANDOM 173 mg/dL (80-116); POTASSIUM,K 3.9 mmol/L (3.5-5.3); SODIUM,NA 140 mmol/L (135-145)
[2024-03-22 07:14] LABS: BASOPHILS ABSOLUTE AUTO 0.1 x10-3/uL (0.0-0.1); BASOPHILS PERCENT AUTO 0.6 % (0.2-1.5); EOSINOPHILS ABSOLUTE AUTO 0.1 x10-3/uL (0.0-0.8); EOSINOPHILS PERCENT AUTO 1.1 % (0.6-8.1); HEMATOCRIT 38.7 % (34.2-48.2); HEMOGLOBIN 12.5 g/dL (11.4-15.5); LYMPHOCYTES ABSOLUTE AUTO 4.2 x10-3/uL (1.0-4.4); LYMPHOCYTES PERCENT AUTO 46.3 % (18.4-52.1); MEAN CORPUSCULAR HEMOGLOBIN 30.6 pg (23.9-33.9); MEAN CORPUSCULAR HGB CONC 32.4 g/dL (31.9-34.8); MEAN CORPUSCULAR VOLUME 94.3 fL (76.7-100.5); MEAN PLATELET VOLUME 10.1 fL (7.1-12.4); MONOCYTES ABSOLUTE AUTO 0.5 x10-3/uL (0.3-1.0); MONOCYTES PERCENT AUTO 5.6 % (4.4-15.7); NEUTROPHILS ABSOLUTE AUTO 4.2 x10-3/uL (1.5-6.3); NEUTROPHILS PERCENT AUTO 46.4 % (30.8-76.2); PLATELET COUNT,PLT 199 x10(3)uL (151-488); RED CELL DISTRIBUTION WIDTH 13.3 % (12.3-16.5)
[2024-03-22] MEDS ORDERED: Aspirin 325 MG Tab.EC PO SCH (08:04)
[2024-03-22] MEDS ORDERED: Cefdinir 300 MG Cap PO SCH (08:04)
[2024-03-22] MEDS ORDERED: Aspirin 81 MG Tab.Chew PO ONE (08:04)
[2024-03-22] MEDS: Spironolactone 25 MG Tab PO SCH (08:44)
== END 2024-03-22 11:55 | disposition home health service (06) ==
LOC: FB.ED 16:27 → FB.MS 21:35
PROVIDERS: ADMIT Emergency Medicine; ATTEND Internal Medicine
DX: R42 Dizziness and giddiness (principal); I10 Essential (primary) hypertension; E11.69 Type 2 diabetes mellitus with other specified complication; E66.9 Obesity, unspecified; M25.48 Effusion, other site; K21.9 Gastro-esophageal reflux disease without esophagitis; E78.00 Pure hypercholesterolemia, unspecified; J45.909 Unspecified asthma, uncomplicated; E11.40 Type 2 diabetes mellitus with diabetic neuropathy, unspecified; F41.9 Anxiety disorder, unspecified; F32.A Depression, unspecified; Z79.82 Long term (current) use of aspirin; Z68.39 Body mass index [BMI] 39.0-39.9, adult; Z79.4 Long term (current) use of insulin; Z79.899 Other long term (current) drug therapy; Z88.0 Allergy status to penicillin; Z91.041 Radiographic dye allergy status
CPT/HCPCS: 36415; 70450; 70551; 80048; 80053; 81001; 82947; 83735; 85025; 86140; 93005; 93010; 93880; 96361; 96374; 96375; 97161-GP; 97165-GO; 99222; 99238; 99285; 99285-25; A9270-GY; G0378; J1815; J1815-GY; J3360; J3490; J7030

== ENCOUNTER 2024-05-27 04:05 | Emergency (ER) | payer MEDICARE, MEDICAID ==
[2024-05-27] MEDS: Ketorolac 30 MG/ML SDV IM ONE (04:49)
== END 2024-05-27 05:01 | disposition home or self-care (01) ==
LOC: FB.ED 04:05
DX: G62.9 Polyneuropathy, unspecified (principal); G89.29 Other chronic pain; I10 Essential (primary) hypertension; E78.00 Pure hypercholesterolemia, unspecified; J45.909 Unspecified asthma, uncomplicated; E11.21 Type 2 diabetes mellitus with diabetic nephropathy; Z79.899 Other long term (current) drug therapy; Z79.82 Long term (current) use of aspirin; Z79.4 Long term (current) use of insulin; Z88.0 Allergy status to penicillin
CPT/HCPCS: 82947; 96372; 99283; J1885

== ENCOUNTER 2024-09-16 12:37 | Emergency (ER) | payer MEDICARE, MEDICAID ==
[2024-09-16] MEDS ORDERED: Ketorolac 30 MG/ML SDV IM ONE (13:16)
[2024-09-16] MEDS ORDERED: Acetaminophen Soln 650 MG/20.3 ML UD Cup PO ONE (13:17)
[2024-09-16] MEDS: Acetaminophen 325 MG Tab PO ONE (14:01)
[2024-09-16] MEDS: Ketorolac 30 MG/ML SDV IVPUSH ONE (14:02)
== END 2024-09-16 15:09 | disposition home or self-care (01) ==
LOC: FB.ED 12:37
DX: M25.561 Pain in right knee (principal); J45.909 Unspecified asthma, uncomplicated; E11.9 Type 2 diabetes mellitus without complications; Z79.82 Long term (current) use of aspirin; Z79.899 Other long term (current) drug therapy; Z91.041 Radiographic dye allergy status; Z88.0 Allergy status to penicillin
CPT/HCPCS: 73562; 96372; 99284; A9270; J1885

== ENCOUNTER 2024-09-18 08:20 | Emergency (ER) | payer MEDICARE, MEDICAID | END 2024-09-18 09:55 | disposition home or self-care (01) | LOC: FB.ED 08:20 | DX: M72.2 Plantar fascial fibromatosis (principal); E78.00 Pure hypercholesterolemia, unspecified; I10 Essential (primary) hypertension; E11.9 Type 2 diabetes mellitus without complications; Z79.82 Long term (current) use of aspirin; Z79.899 Other long term (current) drug therapy; Z91.041 Radiographic dye allergy status; Z88.0 Allergy status to penicillin | CPT/HCPCS: 73630-RT; 99283 ==

== ENCOUNTER 2025-01-13 12:08 | Emergency (ER) | payer MEDICARE, MEDICAID ==
[2025-01-13 13:08] LABS: BASOPHILS ABSOLUTE AUTO 0.1 x10-3/uL (0.0-0.1); BASOPHILS PERCENT AUTO 1.4 % (0.2-1.5); EOSINOPHILS PERCENT AUTO 0.4 % (0.6-8.1); HEMATOCRIT 43.2 % (34.2-48.2); HEMOGLOBIN 14.4 g/dL (11.4-15.5); LYMPHOCYTES ABSOLUTE AUTO 2.3 x10-3/uL (1.0-4.4); LYMPHOCYTES PERCENT AUTO 24.3 % (18.4-52.1); MEAN CORPUSCULAR HEMOGLOBIN 31.3 pg (23.9-33.9); MEAN CORPUSCULAR HGB CONC 33.4 g/dL (31.9-34.8); MEAN CORPUSCULAR VOLUME 93.7 fL (76.7-100.5); MEAN PLATELET VOLUME 10.1 fL (7.1-12.4); MONOCYTES ABSOLUTE AUTO 0.4 x10-3/uL (0.3-1.0); MONOCYTES PERCENT AUTO 4.3 % (4.4-15.7); NEUTROPHILS ABSOLUTE AUTO 6.6 x10-3/uL (1.5-6.3); NEUTROPHILS PERCENT AUTO 69.6 % (30.8-76.2); PLATELET COUNT,PLT 214 x10(3)uL (151-488); RED BLOOD CELL COUNT 4.61 x10(6)uL (3.60-5.20); RED CELL DISTRIBUTION WIDTH 13.2 % (12.3-16.5); WHITE BLOOD CELL COUNT,WBC 9.5 x10-3/uL (3.0-10.3)
[2025-01-13 13:18] LABS: BLOOD UREA NITROGEN,BUN 17 mg/dL (7-18); CALCIUM 9.8 mg/dL (8.6-10.2); CARBON DIOXIDE,CO2 29 mmol/L (21-32); CHLORIDE,CL 103 mmol/L (100-110); EST CRCL DRUG DOSING (CG) 56.72 mL/min; ESTIMATED GFR 64 mL/min (>60); GLUCOSE RANDOM 214 mg/dL (80-116); SODIUM,NA 141 mmol/L (135-145)
[2025-01-13 13:24] LABS: A/G RATIO 0.7; ALANINE AMINOTRANSFERASE,ALT 20 U/L (12-36); ALBUMIN 3.5 g/dL (3.2-4.6); ALKALINE PHOSPHATASE 99 IU/L (56-112); ASPARTATE AMNIOTRANSFERASE,AST 12 IU/L (5-25); BILIRUBIN TOTAL 0.4 mg/dL (0.1-1.3); PROTEIN TOTAL,TP 8.2 g/dL (6.0-8.0)
== END 2025-01-13 15:00 | disposition home or self-care (01) ==
LOC: FB.ED 12:08
DX: K59.01 Slow transit constipation (principal); I10 Essential (primary) hypertension; E78.00 Pure hypercholesterolemia, unspecified; J45.909 Unspecified asthma, uncomplicated; E11.42 Type 2 diabetes mellitus with diabetic polyneuropathy; F17.290 Nicotine dependence, other tobacco product, uncomplicated; Z88.0 Allergy status to penicillin; Z91.041 Radiographic dye allergy status; Z79.51 Long term (current) use of inhaled steroids; Z79.82 Long term (current) use of aspirin; Z79.4 Long term (current) use of insulin; Z79.899 Other long term (current) drug therapy
CPT/HCPCS: 36415; 74176; 80053; 83690; 85025; 99284

== ENCOUNTER 2025-01-14 01:15 | Emergency (ER) | payer MEDICARE, MEDICAID ==
[2025-01-14] MEDS ORDERED: Ondansetron 4 MG Tab.DIS PO ONE (01:16)
== END 2025-01-14 02:47 | disposition home or self-care (01) ==
LOC: FB.ED 01:15
DX: K59.01 Slow transit constipation (principal); I10 Essential (primary) hypertension; E78.00 Pure hypercholesterolemia, unspecified; J45.909 Unspecified asthma, uncomplicated; K21.9 Gastro-esophageal reflux disease without esophagitis; E11.42 Type 2 diabetes mellitus with diabetic polyneuropathy; F17.210 Nicotine dependence, cigarettes, uncomplicated; Z88.0 Allergy status to penicillin; Z91.041 Radiographic dye allergy status; Z79.82 Long term (current) use of aspirin; Z79.51 Long term (current) use of inhaled steroids; Z79.4 Long term (current) use of insulin; Z79.899 Other long term (current) drug therapy
CPT/HCPCS: 99283; Q0162

== ENCOUNTER 2025-08-04 20:27 | Emergency (ER) | payer MEDICARE ==
[2025-08-04] MEDS: diphenhydrAMINE 50 MG/ML SDV IM ONE (20:40)
[2025-08-04] MEDS: diphenhydrAMINE 50 MG/ML SDV ONE (20:44)
== END 2025-08-04 23:00 | disposition home or self-care (01) ==
LOC: FB.ED 20:27
DX: L50.9 Urticaria, unspecified (principal); I10 Essential (primary) hypertension; E78.00 Pure hypercholesterolemia, unspecified; E11.9 Type 2 diabetes mellitus without complications; Z88.0 Allergy status to penicillin; Z91.041 Radiographic dye allergy status; Z79.4 Long term (current) use of insulin; Z79.82 Long term (current) use of aspirin; Z79.899 Other long term (current) drug therapy
CPT/HCPCS: 96372; 99283; A9270; J1200; J7512